=== PATIENT | female | born 1945 | race Caucasian/White ===

== ENCOUNTER → 2016-12-19 | Outpatient (CLI) | payer OTHER ==
[~2016-12-19] MED LIST: ACET500T57 PO; CARV3.12 PO; CENTTAB41 PO; IRON PO; LEVO1TAB PO; OXYC-292 PO; OXYC1TAB3 PO; XRL10 PO
--- NOTE | 2016-12-19 12:32 | MAMMOGRAPHY REPORT ---
BILATERAL DIGITAL SCREENING MAMMOGRAM WITH CAD: 12/19/2016 CLINICAL HISTORY: Routine screening. Patient has no complaints. TECHNIQUE: Current study was also evaluated with a Computer Aided Detection (CAD) system. Bilateral CC and MLO views were obtained. COMPARISON: Comparison is made to exams dated: 12/16/2015 mammogram, 12/14/2014 mammogram, 08/24/2013 ma mmogram, 05/06/2012 mammogram, 06/05/2011 mammogram, and 05/10/2010 mammogram - [facility]. BREAST COMPOSITION: There are scattered areas of fibroglandular density in both breasts. FINDINGS: No suspicious masses, calcifications, or areas of architectural distortion are noted in ei ther breast. There has been no significant interval change compared to prior exams. Scattered bilater al benign-appearing calcifications are not significantly changed. IMPRESSION: ACR BI-RADS CATEGORY 2: BENIGN There is no mammographic evidence of malignancy. A 1 year screening mammogram is recommended. The pa tient will receive written notification of the results. Approximately 10% of breast cancers are not detected with mammography. A negative mammographic report should not delay biopsy if a clinically suggestive mass is present. Megan Riggins M.D. /:12/19/2016 09:33:52 Loan Representative: Mariaa Clemons, [facility] letter sent: Normal 1/2 BI-RADS Code: ACR BI-RADS Category 2: Benign
== END | disposition home or self-care (01) ==
LOC: C.MAMM 09:11
PROVIDERS: ATTEND Student in an Organized Health Care Education/Training Program
DX: Z12.31 Encounter for screening mammogram for malignant neoplasm of breast (principal)

== ENCOUNTER 2017-05-01 12:39 | Inpatient (IN) | payer OTHER ==
[~2017-05-01] VITALS: Ht 160 cm; Wt 79.4 kg
[2017-05-01 12:45] VITALS: Ht 160 cm; Wt 79.4 kg
[2017-05-01] MEDS ORDERED: FLUCONAZOLE 50 MG TAB PO ONE (13:15)
[2017-05-01] MEDS ORDERED: LEVO100T PO (13:28)
[2017-05-01] MEDS ORDERED: KRIL1CAP14 PO (13:28)
[2017-05-01] MEDS ORDERED: FERR1TAB23 PO (13:28)
[2017-05-01] MEDS ORDERED: CARV12.52 PO (13:28)
[2017-05-01] MEDS ORDERED: VNTHFA/IN INH (13:28)
[2017-05-01] MEDS ORDERED: MULTCHW PO (13:28)
[2017-05-01] MEDS ORDERED: COEN1CAP28 PO (13:28)
[2017-05-01] MEDS ORDERED: FLUT0.15 NAE (13:28)
[2017-05-01] MEDS ORDERED: ATOR10TA82 PO (13:28)
[2017-05-01] MEDS ORDERED: CYAN500T PO (13:28)
[2017-05-01] MEDS ORDERED: SACC250C PO (13:28)
[2017-05-01] MEDS ORDERED: CLOT10TR2 MT (13:28)
--- NOTE | 2017-05-01 13:56 | EMERGENCY ROOM VISIT NOTE ---
History Report prepared by Sandi: Adolfo Duval Under the Supervision of: Dr. Greald Juarez M.D. First contact with patient: 13:03 Chief Complaint: ILLNESS Stated Complaint: BLOOD PRESSURE, YEAST History of Present Illness The patient is a 72 year old female who presents to the Emergency Room with complaints of persistent generalized illness beginning a few weeks ago. She states that she had some "intestinal problems" recently including diarrhea which she attributes to eating a treated hoagie. She states that she was found to have thrush last week as well. The patient notes that her blood pressure was abnormally high today. She also believes she may have a vaginal yeast infection. She states that she may have some mild discomfort with urination. The patient states that she has been hydrating well recently. Her diarrhea resolved this week. She is currently on medication for her thrush. She was previously on Ciprofloxacin for her GI symptoms--she believes the antibiotic caused the thrush. The patient denies SOB, cough, or chest pain. Source of History: patient Onset: A few weeks ago Position: other (generalized) Quality: other (illness) Timing: other (persistent) Associated Symptoms: + diarrhea (resolved), + urinary symptoms (mild discomfort with urination), No cough, No chest pain, No SOB Review of Systems See HPI for pertinent positives & negatives. A total of 10 systems reviewed and were otherwise negative. Past Medical & Surgical Medical Problems: (1) HLD (hyperlipidemia) (2) HTN (hypertension) (3) Hypothyroidism (4) Osteoarthritis Surgical Problems: (1) History of tonsillectomy (2) S/P partial hysterectomy (3) Status post total knee replacement, left (4) Status post total knee replacement, right Family History No pertinent family history stated. Social History Smoking Status: Never Smoker Drug Use: none Current/Historical Medications Scheduled Aspirin (Aspirin EC Low Dose), 81 MG PO DAILY Atorvastatin (Lipitor), 10 MG PO 3XWK Carvedilol (Coreg), 12.5 MG PO BID Clotrimazole (Mycelex), 10 MG MT 5XD Coenzyme Q10 (Ubidecarenone) (Co Q10), 100 MG PO DAILY Cyanocobalamin (Vitamin B-12), 1,000 MCG PO DAILY Ferrous Sulfate (Iron), 325 MG PO DAILY Fluticasone Propionate (Nasal) (Flonase Allergy Relief), 2 SPRAY [place]TON DAILY Krill Oil (Maximum Red Krill 300 mg), 300 MG PO DAILY Levothyroxine Sodium (Synthroid), 100 MCG PO DAILY Multiple Vitamins W/ Minerals (Centrum Silver), 1 TAB PO DAILY Scheduled PRN Albuterol Hfa (Ventolin Hfa), 2 PUFFS INH QID PRN for SOB/Wheezing Allergies Coded Allergies: Penicillins (Verified Allergy, Intermediate, HIVES, 05/01/17) Corticosteroids (Verified Allergy, Mild, `, 05/01/17) Naproxen (Verified Allergy, Unknown, UNKNOWN, 05/01/17) Physical Exam Vital Signs Date Time Temp Pulse Resp B/P (MAP) Pulse Ox O2 Delivery O2 Flow Rate FiO2 05/01/17 17:10 74 14 98 05/01/17 17:05 80 23 98 05/01/17 17:03 198/86 05/01/17 17:02 215/89 05/01/17 16:30 198/99 05/01/17 16:17 78 18 98 05/01/17 16:12 180/92 05/01/17 16:00 192/103 05/01/17 15:58 76 18 97 05/01/17 15:47 217/88 05/01/17 15:46 213/125 05/01/17 15:45 217/122 05/01/17 15:30 197/124 05/01/17 15:28 62 15 96 05/01/17 15:23 68 16 194/105 97 05/01/17 15:16 203/113 05/01/17 15:00 202/137 05/01/17 14:53 66 18 96 05/01/17 14:48 210/114 05/01/17 14:35 74 16 97 05/01/17 14:30 217/105 05/01/17 14:12 204/113 05/01/17 14:09 68 16 96 05/01/17 14:00 213/107 05/01/17 13:47 82 05/01/17 13:42 80 20 221/105 97 Room Air 05/01/17 13:42 221/105 05/01/17 12:45 36.6 72 20 219/99 97 Room Air Physical Exam GENERAL: Patient is in no acute distress. HEENT: No acute trauma, normocephalic atraumatic, mucous membranes moist, no nasal congestion, no scleral icterus. No thrush patches noted in mouth. No throat erythema. NECK: No stridor, no adenopathy, no meningismus, trachea is midline. LUNGS: Clear to auscultation bilaterally, no wheeze, no rhonchi, breath sounds equal. HEART: Without murmurs gallops or rubs, regular rate and rhythm. ABDOMEN: Soft, nontender, bowel sounds positive, no hernias, no peritonitis. EXTREMITIES: No cyanosis or edema, full range of motion of all the joints without pain or difficulty, no signs for acute trauma. NEUROLOGIC: Oriented x 3, no acute motor or sensory deficits, no focal weakness. SKIN: No rash, no jaundice, no diaphoresis. Medical Decision & Procedures Laboratory Results 05/01/17 13:37 Red Blood Count 4.10, Mean Corpuscular Volume 88.5, Mean Corpuscular Hemoglobin 30.7, Mean Corpuscular Hemoglobin Concent 34.7, Mean Platelet Volume 8.3, Neutrophils (%) (Auto) 62.4, Lymphocytes (%) (Auto) 25.8, Monocytes (%) (Auto) 9.5, Eosinophils (%) (Auto) 1.4, Basophils (%) (Auto) 0.3, Neutrophils # (Auto) 4.42, Lymphocytes # (Auto) 1.83, Monocytes # (Auto) 0.67, Eosinophils # (Auto) 0.10, Basophils # (Auto) 0.02 05/01/17 13:37 Test 05/01/17 13:37 05/01/17 13:45 White Blood Count 7.08 K/uL (4.8-10.8) Red Blood Count 4.10 M/uL (4.2-5.4) Hemoglobin 12.6 g/dL (12.0-16.0) Hematocrit 36.3 % (37-47) Mean Corpuscular Volume 88.5 fL (80-100) Mean Corpuscular Hemoglobin 30.7 pg (25-34) Mean Corpuscular Hemoglobin Concent 34.7 g/dl (32-36) Platelet Count 339 K/uL (130-400) Mean Platelet Volume 8.3 fL (7.4-10.4) Neutrophils (%) (Auto) 62.4 % Lymphocytes (%) (Auto) 25.8 % Monocytes (%) (Auto) 9.5 % Eosinophils (%) (Auto) 1.4 % Basophils (%) (Auto) 0.3 % Neutrophils # (Auto) 4.42 K/uL (1.4-6.5) Lymphocytes # (Auto) 1.83 K/uL (1.2-3.4) Monocytes # (Auto) 0.67 K/uL (0.11-0.59) Eosinophils # (Auto) 0.10 K/uL (0-0.5) Basophils # (Auto) 0.02 K/uL (0-0.2) RDW Standard Deviation 41.7 fL (36.4-46.3) RDW Coefficient of Variation 13.0 % (11.5-14.5) Immature Granulocyte % (Auto) 0.6 % Immature Granulocyte # (Auto) 0.04 K/uL (0.00-0.02) Anion Gap 9.0 mmol/L (3-11) Est Creatinine Clear Calc Drug Dose 74.7 ml/min Estimated GFR () 101.0 Estimated GFR (Non- 87.2 BUN/Creatinine Ratio 10.9 (10-20) Calcium Level 9.1 mg/dl (8.5-10.1) Magnesium Level 1.8 mg/dl (1.8-2.4) Total Bilirubin 0.4 mg/dl (0.2-1) Aspartate Amino Transf (AST/SGOT) 24 U/L (15-37) Alanine Aminotransferase (ALT/SGPT) 34 U/L (12-78) Alkaline Phosphatase 88 U/L (45-117) Total Protein 7.8 gm/dl (6.4-8.2) Albumin 4.0 gm/dl (3.4-5.0) Globulin 3.8 gm/dl (2.5-4.0) Albumin/Globulin Ratio 1.1 (0.9-2) Thyroid Stimulating Hormone (TSH) 0.452 uIu/ml (0.300-4.500) Urine Color YELLOW Urine Appearance CLEAR (CLEAR) Urine pH 7.5 (4.5-7.5) Urine Specific [place] 1.010 (1.000-1.030) Urine Protein NEG (NEG) Urine Glucose (UA) NEG (NEG) Urine Ketones NEG (NEG) Urine Occult Blood NEG (NEG) Urine Nitrite NEG (NEG) Urine Bilirubin NEG (NEG) Urine Urobilinogen NEG (NEG) Urine Leukocyte Esterase NEG (NEG) Laboratory results reviewed by me. Medications Administered Medications (Trade) Dose Ordered Sig/Tejas Route Start Time Stop Time Status Last Admin Dose Admin Fluconazole (Diflucan Tab) 150 mg NOW ONCE PO 05/01/17 13:15 05/01/17 13:16 DC 05/01/17 13:38 150 MG Labetalol HCl (Normodyne IV) 20 mg NOW STAT IV 05/01/17 14:35 05/01/17 14:40 DC 05/01/17 14:46 20 MG Hydralazine HCl (HydrALAZINE INJ) 10 mg NOW STAT IV 05/01/17 15:24 05/01/17 15:25 DC 05/01/17 15:42 10 MG Amlodipine Besylate (Norvasc Tab) 5 mg NOW ONCE PO 05/01/17 16:30 05/01/17 16:31 DC 05/01/17 16:24 5 MG ECG Indication: other (hypertension) Rate (beats per minute): 73 Rhythm: normal sinus Findings: no acute ischemic change, no ectopy ED Course 1305: The patient was evaluated in room C2B. A complete history and physical exam was performed. 1315: Ordered Diflucan Tab 150 mg PO. 1435: Ordered Normodyne 20 mg IV. 1524: Ordered Hydralazine Inj 10 mg IV. 1630: Ordered Norvasc Tab 5 mg PO. 1635: Upon reexamination the patient is resting comfortably. I discussed results and treatment plan with the patient. She verbalizes agreement and understanding. The patient will be evaluated for further management. Medical Decision The patient is a 72 year old female who presents to the ED with complaints of persistent generalized illness. Differential diagnoses considered include situational hypertension, electrolyte imbalance, cardiac ischemia, anemia, UTI, vaginal yeast infection and thrush. There is no leukocytosis or concerning anemia. Sodium slightly low but this is baseline looking back at previous testing. No kidney failure or hepatitis. EKG shows a normal sinus rhythm, no acute ischemia. Cardiac enzyme testing times one is not consistent with acute cardiac injury. The patient appears to be in a euthyroid state. There is no coagulopathy. Urinalysis does not show evidence for infection. Blood pressure was quite high here in the ED. The patient received oral Diflucan for her complaints of a vaginal yeast infection. She was given IV labetalol and IV hydralazine. She was given oral Norvasc. With the above medications, her blood pressure improved slightly but not significantly. Given the resistance to medications, given the high pressure, I did consult cardiology. They recommended a hospital stay for better blood pressure control. I spoke to the patient and case management. The on-call hospitalist was consulted. The reason for the high blood pressure today is currently unclear. Medication Reconcilliation Current Medication List: was personally reviewed by me Blood Pressure Screening Patient's blood pressure: Elevated blood pressure Blood pressure disposition: Referred to PCP Consults Time Called: 1610 Consulting Physician: Dr. Cox -Cardiology Returned Call: 1615 Discussed the patient's case. Dr. Cox recommends the patient be kept for further evaluation. Additional Consults: Time Called: 1635 Consulted Physician: Kasey Stevens Returned Call: 1640 Additional Comments: Discussed the patient's case. The patient will be evaluated for further management. Impression Primary Impression: Hypertensive urgency Scribe Attestation The scribe's documentation has been prepared under my direction and personally reviewed by me in its entirety. I confirm that the note above accurately reflects all work, treatment, procedures, and medical decision making performed by me. Departure Information Dispostion Being Evaluated By Hospitalist Referrals Tiffanie Dewey D.O. (PCP) Patient Instructions My [facility]
[2017-05-01 14:11] LABS: BASO % 0.3 %; BASO ABS # 0.02 K/uL (0-0.2); COMPLETE YES; EOS % 1.4 %; HEMATOCRIT 36.3 % (37-47); IG% 0.6 %; LYMPH % 25.8 %; LYMPH ABS # 1.83 K/uL (1.2-3.4); MEAN CELL VOLUME 88.5 fL (80-100); MEAN CORPUSCULAR HEMOGLOBIN 30.7 pg (25-34); MEAN CORPUSCULAR HGB CONC 34.7 g/dl (32-36); MEAN PLATELET VOLUME 8.3 fL (7.4-10.4); MONO % 9.5 %; NEUT % 62.4 %; PLATELET COUNT 339 K/uL (130-400); WHITE BLOOD COUNT 7.08 K/uL (4.8-10.8)
[2017-05-01 14:31] LABS: URINE APPEARANCE CLEAR (CLEAR); URINE BILIRUBIN NEG (NEG); URINE COLOR YELLOW; URINE NITRITE NEG (NEG); URINE PH 7.5 (4.5-7.5); UROBILINOGEN NEG (NEG); ZZUR CULT IF INDIC CLEAN CATCH NO
[2017-05-01 14:32] LABS: MANUAL MICROSCOPIC REQUIRED? NO; REVIEW REQ? NO
[2017-05-01 14:32] LABS: ALT/SGPT 34 U/L (12-78); AST/SGOT 24 U/L (15-37); BLOOD UREA NITROGEN 8 mg/dl (7-18); BUN/CREATININE RATIO 10.9 (10-20); CALCIUM 9.1 mg/dl (8.5-10.1); CARBON DIOXIDE 28 mmol/L (21-32); CHLORIDE 92 mmol/L (98-107); GLUCOSE 99 mg/dl (70-99); MAGNESIUM 1.8 mg/dl (1.8-2.4); SODIUM 129 mmol/L (136-145)
[2017-05-01] MEDS ORDERED: LABETALOL HCL IV 5 MG/ML 20ML IV STA (14:35)
[2017-05-01 14:43] LABS: ALB/GLOB RATIO 1.1 (0.9-2); ALKALINE PHOSPHATASE 88 U/L (45-117); THYROID STIMULATING HORMONE 0.452 uIu/ml (0.300-4.500)
[2017-05-01] MEDS ORDERED: HydrALAZINE HCL 20 MG/ML VIAL IV STA (15:24)
[2017-05-01] MEDS ORDERED: AMLODIPINE BESYLATE 5 MG TAB PO ONE ×2 (16:30→23:27)
[2017-05-01] MEDS ORDERED: ASPEC81 PO (17:14)
[2017-05-01] MEDS ORDERED: NITROGLYCERIN 0.4 MG SL PER TAB CHARGE SL PRN (17:15)
[2017-05-01] MEDS ORDERED: ACETAMINOPHEN 325 MG TAB PO PRN (17:15)
[2017-05-01] MEDS ORDERED: ONDANSETRON INJ 2 MG/ML 2 ML VIAL IV PRN (17:15)
[2017-05-01 17:54] VITALS: O2SAT 98
[2017-05-01 18:15] VITALS: BP 207/96; PULSE 88; TEMP 37; O2SAT 98
--- NOTE | 2017-05-01 18:42 | History and Physical ---
History & Physical Date & Time of Service: May 01, 2017 ~ 16:45 Chief Complaint: High Blood Pressure Primary Care Physician: Tiffanie Dewey D.O. History of Present Illness 72 year old female who presents to the ED with elevated blood pressure. Recently patient has been under a large amount of stress with her being sick as well as herself with a GI illness. She completed a course of Cipro for suspected food poisoning. She then developed thrush and has been using Mycelex however she does not feel as though this is helping. Patient reports that she routinely takes her blood pressure 2-3 times/week. She last took her BP 2 days ago and it was at baseline for her (systolically 120s-130s). Today when she took it she reports it was 220 systolically. She denies any associated symptoms with it. No chest pain or shortness of breath. She denies headache, blurred vision, slurred speech, unilateral numbness, tingling, or weakness. She reports her GI symptoms are resolving. No abdominal pain, nausea, vomiting, or diarrhea. She does admit to significantly increasing her water intake with the GI illness. She denies lightheadedness, dizziness, diaphoresis, or syncopal events. No fever or chills. She denies urinary symptoms. In the ED, Patient's BP was found to be 221/105. She was given Labetalol 20mg IV and Hydralazine 10mg IV with mild improvement in BP. ED discussed the case with cardiology who recommended adding Norvasc 5mg PO which she received just prior to myself seeing her. Troponin is negative and EKG does not show any acute ST changes. Past Medical/Surgical History Medical Problems: (1) HLD (hyperlipidemia) Status: Chronic (2) HTN (hypertension) Status: Chronic (3) Hypothyroidism Status: Chronic (4) Osteoarthritis Status: Chronic Surgical Problems: (1) History of tonsillectomy Status: Chronic (2) S/P partial hysterectomy Status: Chronic (3) Status post total knee replacement, left Status: Chronic (4) Status post total knee replacement, right Status: Chronic Family History FH: CAD (coronary artery disease) FATHER FH: diabetes mellitus FATHER Social History Smoking Status: Never Smoker Alcohol Use: none Marital Status: Housing status: lives with family Immunizations History of Influenza Vaccine: Yes Influenza Vaccine Date: Apr 05, 2017 History of Tetanus Vaccine?: Yes Tetanus Immunization Date: Apr 22, 1996 Multi-Drug Resistant Organisms History of MDRO: No Allergies Coded Allergies: Penicillins (Verified Allergy, Intermediate, HIVES, 05/01/17) Corticosteroids (Verified Allergy, Mild, `, 05/01/17) Naproxen (Verified Allergy, Unknown, UNKNOWN, 05/01/17) Home Medications Scheduled Aspirin (Aspirin EC Low Dose), 81 MG PO DAILY Atorvastatin (Lipitor), 10 MG PO 3XWK Carvedilol (Coreg), 12.5 MG PO BID Clotrimazole (Mycelex), 10 MG MT 5XD Coenzyme Q10 (Ubidecarenone) (Co Q10), 100 MG PO DAILY Cyanocobalamin (Vitamin B-12), 1,000 MCG PO DAILY Ferrous Sulfate (Iron), 325 MG PO DAILY Fluticasone Propionate (Nasal) (Flonase Allergy Relief), 2 SPRAY [place] DAILY Krill Oil (Maximum Red Krill 300 mg), 300 MG PO DAILY Levothyroxine Sodium (Synthroid), 100 MCG PO DAILY Multiple Vitamins W/ Minerals (Centrum Silver), 1 TAB PO DAILY Scheduled PRN Albuterol Hfa (Ventolin Hfa), 2 PUFFS INH QID PRN for SOB/Wheezing Review of Systems ROS per HPI, all other systems reviewed and negative Physical Exam Vital Signs Date Time Temp Pulse Resp B/P (MAP) Pulse Ox O2 Delivery O2 Flow Rate FiO2 05/01/17 17:54 36.6 74 14 219/107 98 05/01/17 17:30 219/107 05/01/17 17:10 74 14 98 05/01/17 17:05 80 23 98 05/01/17 17:03 198/86 05/01/17 17:02 215/89 05/01/17 16:30 198/99 05/01/17 16:17 78 18 98 05/01/17 16:12 180/92 05/01/17 16:00 192/103 05/01/17 15:58 76 18 97 05/01/17 15:47 217/88 05/01/17 15:46 213/125 05/01/17 15:45 217/122 05/01/17 15:30 197/124 05/01/17 15:28 62 15 96 05/01/17 15:23 68 16 194/105 97 05/01/17 15:16 203/113 05/01/17 15:00 202/137 05/01/17 14:53 66 18 96 05/01/17 14:48 210/114 05/01/17 14:35 74 16 97 05/01/17 14:30 217/105 05/01/17 14:12 204/113 05/01/17 14:09 68 16 96 05/01/17 14:00 213/107 05/01/17 13:47 82 05/01/17 13:42 80 20 221/105 97 Room Air 05/01/17 13:42 221/105 05/01/17 12:45 36.6 72 20 219/99 97 Room Air General Appearance: WD/WN, no apparent distress Head: normocephalic, atraumatic Eyes: normal inspection, EOMI, sclerae normal ENT: hearing grossly normal, + pertinent finding (mucous membranes moist, thrush noted on tongue ) Neck: supple, no JVD, trachea midline Respiratory/Chest: lungs clear, normal breath sounds, no respiratory distress Cardiovascular: regular rate, rhythm, no edema, normal peripheral pulses Abdomen/GI: normal bowel sounds, non tender, soft, no organomegaly Extremities/Musculoskelatal: normal inspection, no calf tenderness, normal capillary refill Neurologic/Psych: no motor/sensory deficits, alert, normal mood/affect, oriented x 3 Skin: normal color, warm/dry Diagnostics Laboratory Results Results Past 24 Hours Test 05/01/17 13:37 05/01/17 13:45 05/01/17 17:16 05/01/17 17:18 Range/Units White Blood Count 7.08 4.8-10.8 K/uL Red Blood Count 4.10 4.2-5.4 M/uL Hemoglobin 12.6 12.0-16.0 g/dL Hematocrit 36.3 37-47 % Mean Corpuscular Volume 88.5 80-100 fL Mean Corpuscular Hemoglobin 30.7 25-34 pg Mean Corpuscular Hemoglobin Concent 34.7 32-36 g/dl Platelet Count 339 130-400 K/uL Mean Platelet Volume 8.3 7.4-10.4 fL Neutrophils (%) (Auto) 62.4 % Lymphocytes (%) (Auto) 25.8 % Monocytes (%) (Auto) 9.5 % Eosinophils (%) (Auto) 1.4 % Basophils (%) (Auto) 0.3 % Neutrophils # (Auto) 4.42 1.4-6.5 K/uL Lymphocytes # (Auto) 1.83 1.2-3.4 K/uL Monocytes # (Auto) 0.67 0.11-0.59 K/uL Eosinophils # (Auto) 0.10 0-0.5 K/uL Basophils # (Auto) 0.02 0-0.2 K/uL RDW Standard Deviation 41.7 36.4-46.3 fL RDW Coefficient of Variation 13.0 11.5-14.5 % Immature Granulocyte % (Auto) 0.6 % Immature Granulocyte # (Auto) 0.04 0.00-0.02 K/uL Sodium Level 129 136-145 mmol/L Potassium Level 4.0 3.5-5.1 mmol/L Chloride Level 92 98-107 mmol/L Carbon Dioxide Level 28 21-32 mmol/L Anion Gap 9.0 3-11 mmol/L Blood Urea Nitrogen 8 7-18 mg/dl Creatinine 0.70 0.60-1.20 mg/dl Est Creatinine Clear Calc Drug Dose 74.7 ml/min Estimated GFR () 101.0 Estimated GFR (Non- 87.2 BUN/Creatinine Ratio 10.9 10-20 Random Glucose 99 70-99 mg/dl Calcium Level 9.1 8.5-10.1 mg/dl Magnesium Level 1.8 1.8-2.4 mg/dl Total Bilirubin 0.4 0.2-1 mg/dl Aspartate Amino Transf (AST/SGOT) 24 15-37 U/L Alanine Aminotransferase (ALT/SGPT) 34 12-78 U/L Alkaline Phosphatase 88 45-117 U/L Troponin I < 0.015 0-0.045 ng/ml Total Protein 7.8 6.4-8.2 gm/dl Albumin 4.0 3.4-5.0 gm/dl Globulin 3.8 2.5-4.0 gm/dl Albumin/Globulin Ratio 1.1 0.9-2 Thyroid Stimulating Hormone (TSH) 0.452 0.300-4.500 uIu/ml Urine Color YELLOW Urine Appearance CLEAR CLEAR Urine pH 7.5 4.5-7.5 Urine Specific [place] 1.010 1.000-1.030 Urine Protein NEG NEG Urine Glucose (UA) NEG NEG Urine Ketones NEG NEG Urine Occult Blood NEG NEG Urine Nitrite NEG NEG Urine Bilirubin NEG NEG Urine Urobilinogen NEG NEG Urine Leukocyte Esterase NEG NEG Impression Assessment and Plan HYPERTENSIVE URGENCY - admit to tele - patient presenting to the ED after she incidentally found her BP to be elevated systolically in the 220s at home; in the ED, BP found to be 221/105, patient asymptomatic - s/p Labetalol 20mg IV and Hydralazine 10mg IV with mild improvement in BP; ED discussed case with Dr. Cox who recommended Norvasc 5mg PO which patient received shortly before my exam - patient on carvedilol 12.5mg BID at home; will give evening dose now and reassess BP. If BP continues to be elevated, will give an additional Norvasc 5mg tonight - PRN enalapril if BPs remain elevated - initial troponin negative, EKG without acute ST changes - continue to cycle cardiac enzymes, check resting echo HYPONATREMIA - mild, Na+ 129 - possibly due to patient's recent increase in free water intake - hx of hyponatremia in the past that improved with FR - will place patient on FR; also check serum and urine osmo, urine sodium HYPOTHYROIDISM - continue levothyroxine HLD - continue statin DVT PROPHYLAXIS - SQ Lovenox DISPO - In my clinical judgment this beneficiary meets acute admission criteria, established by [facility], that includes being hospitalized through two midnights. - expect d/c home once medically stable Attending physician Dr. Diego Addendum, I have seen and examined the patient with [employer]IL[employer] Kasey Livingston and agree with the assessment and plan and would like to comment that this is a 72 year old F patient with hypertensive urgency. Since initial blood pressure of 219/107 in the ED, patient's blood pressure trending down to 187/75 after medications of Hydralazine and Labetalol and Amlodipine and Carvedilol. If patient's blood pressure remains persistently elevated overnight there is still room for an additional 5 mg amlodipine and IV Vasotec. Other than elevated blood pressure, patient does not have symptoms of pain or shortness or breath. Mental status is at baseline. Mild hyponatremia of serum sodium 129. Serum sodium and osmolality labs needed to be monitored VTE Prophylaxis VTE Risk Assessment Done? Y/N: Yes Risk Level: Moderate
[2017-05-01 19:33] VITALS: BP 187/75; PULSE 77
[2017-05-01 19:33] LABS: INR 1.1 (0.9-1.1); PARTIAL THROMBOPLASTIN RATIO 1.2; PROTHROMBIN TIME (PATIENT) 11.4 SECONDS (9.0-12.0)
[2017-05-01] MEDS: ASPIRIN 81 MG ECTAB PO SCH (19:34)
[2017-05-01] MEDS: CARVEDILOL 12.5 MG TAB PO SCH (19:34)
[2017-05-01] MEDS: NYSTATIN SUSP 500,000 U/5 ML UDC PO SCH (19:35)
[2017-05-01] MEDS ORDERED: CARVEDILOL 12.5 MG TAB PO SCH (21:00)
[2017-05-01] MEDS ORDERED: PNEUMOCOCCAL POLYSACCHARIDES 25 MCG/0.5 ML VIAL/SYR IM. ONE (21:15)
[2017-05-01] MEDS ORDERED: PNEUMOCOCCAL ADMINISTRATION CHARGE ONE (21:15)
[2017-05-01 21:32] VITALS: BP 186/82
[2017-05-01] MEDS: ENOXAPARIN 40 MG/0.4 ML SYR SC SCH (21:35)
[2017-05-01 23:01] VITALS: BP 184/90; PULSE 72; TEMP 36.7; O2SAT 92
[2017-05-01] MEDS ORDERED: LORAZEPAM 2 MG/ML 1 ML VIAL IV PRN (23:30)
[2017-05-02 03:55] VITALS: BP 155/76; PULSE 65; TEMP 36.5; O2SAT 97
[2017-05-02] MEDS: LEVOTHYROXINE 100 MCG TAB PO SCH (05:50)
[2017-05-02 06:46] LABS: HEMATOCRIT 38.5 % (37-47); MEAN CELL VOLUME 87.1 fL (80-100); MEAN CORPUSCULAR HEMOGLOBIN 30.8 pg (25-34); MEAN CORPUSCULAR HGB CONC 35.3 g/dl (32-36); MEAN PLATELET VOLUME 8.1 fL (7.4-10.4); PLATELET COUNT 352 K/uL (130-400); RED BLOOD COUNT 4.42 M/uL (4.2-5.4); WHITE BLOOD COUNT 8.36 K/uL (4.8-10.8)
[2017-05-02 07:21] LABS: BUN/CREATININE RATIO 10.3 (10-20); CALCIUM 9.4 mg/dl (8.5-10.1); CREATININE 0.7 mg/dl (0.60-1.20); POTASSIUM 3.6 mmol/L (3.5-5.1)
[2017-05-02 07:27] VITALS: BP 144/81; PULSE 60; TEMP 36.5; O2SAT 98
[2017-05-02] MEDS: ASPIRIN 81 MG ECTAB PO SCH (08:10)
[2017-05-02] MEDS: FERROUS SULFATE 325 MG TAB PO SCH (08:10)
[2017-05-02] MEDS: CARVEDILOL 12.5 MG TAB PO SCH ×2 (08:10→19:39)
[2017-05-02] MEDS: CYANOCOBALAMIN 500 MCG TAB (VIT B-12) PO SCH (08:11)
[2017-05-02] MEDS: NYSTATIN SUSP 500,000 U/5 ML UDC PO SCH ×4 (08:11→19:39)
[2017-05-02] MEDS: CEROVITE ADV FORMULA TAB PO SCH (08:11)
[2017-05-02] MEDS ORDERED: FUROSEMIDE INJ 20 MG in SYRINGE 0 ML IV ONE (08:30)
[2017-05-02] MEDS ORDERED: POTASSIUM CHLORIDE 10 MEQ TABCR PO ONE (08:45)
[2017-05-02] MEDS ORDERED: KRILL OIL 300 MG PO SCH (09:00)
[2017-05-02] MEDS ORDERED: NON-FORMULARY MEDICATION (Coenzyme Q10 (Ubidecarenone) (Co Q10) 100 MG) PO SCH (09:00)
[2017-05-02] MEDS ORDERED: AMLODIPINE BESYLATE 5 MG TAB PO SCH (09:00)
[2017-05-02] MEDS ORDERED: AMLODIPINE BESYLATE 5 MG TAB PO ONE ×2 (09:45→10:00)
--- NOTE | 2017-05-02 10:41 | ECHOCARDIOGRAM REPORT ---
*NOTICE TO RECEIVING [employer] This information is strictly Confidential and protected under [place] law. [place] law prohibits you from making any further disclosure of this information unless further disclosure is expressly permitted by the written consent of the person to whom it pertains or is authorized by law. A general authorization for the release of medical or other information is not sufficient for this purpose. Hospital accepts no responsibility if the information is made available to any other person, INCLUDING THE PATIENT. Interpretation Summary * Name: DALLIN HUERTAS Study Date: 05/02/2017 08:30 AM BP: 155/76 mmHg * Patient Location: [facility] HR: 66 * : 1945 (M/d/yyyy) Gender: Female Height: 63 in * Age: 72 yrs Ethnicity: [place] Weight: 180 lb * Ordering Physician: Kasey Livingston * Referring Physician: Self, Referred * Performed By: Zain Boudreaux RCS * * Reason For Study: Hypertensive Urgency * BSA: 1.8 m2 * -- Conclusions -- * No significant change compared to previous study of 02/25/17. * Normal LV chamber size and wall thickness. * Normal LV systolic function, EF 55-60% * No segmental left ventricular wall motion abnormalities are noted. * Grade I diastolic dysfunction. * Aortic valve sclerosis moderate, without significant aortic valvular stenosis. * Mild mitral regurgitation. * Mild tricuspid regurgitation. Procedure Details * A complete two-dimensional transthoracic echocardiogram was performed (2D, M-mode, Doppler and color flow Doppler). Left Ventricle * The left ventricle is normal in size. * There is normal left ventricular wall thickness. * Ejection Fraction = 55-60%. * Left ventricular systolic function is normal. * No segmental left ventricular wall motion abnormalities are noted. * The left ventricular wall motion is normal. Right Ventricle * The right ventricular cavity size is normal (basal dimension <4.2 cm in right ventricular apical 4-chamber view). * The right ventricular systolic function is normal as assessed by tricuspid annular plane systolic excursion (TAPSE) (normal >1.5 cm). Atria * The left atrial size is normal. * Right atrial size is normal. * No ASD detected; PFO is not assessed. Mitral Valve * The mitral valve anatomy is normal. * There is no mitral valve stenosis. * There is mild mitral regurgitation. Tricuspid Valve * The tricuspid valve anatomy is normal. * There is no tricuspid stenosis. * There is mild tricuspid regurgitation. Aortic Valve * The aortic valve is trileaflet. * Aortic valve sclerosis moderate, without significant aortic valvular stenosis. * There is no significant aortic regurgitation. Pulmonic Valve * The pulmonary valve is not well seen, but the Doppler examination is normal without significant regurgitation or stenosis. Great Vessels * The aortic root and proximal ascending aorta are normal sized. Pericardium/Pleural * There is no pericardial effusion. Left Ventricular Diastolic Function * Grade I diastolic dysfunction, (abnormal relaxation pattern). MMode 2D Measurements and Calculations IVSd 0.93 cm IVSs 1.2 cm LVIDd 4.7 cm LVIDs 2.9 cm LVPWd 0.95 cm LVPWs 1.3 cm IVS/LVPW 0.98 FS 39.2 % EDV(Teich) 103.9 ml ESV(Teich) 31.5 ml EF(Teich) 69.7 % EDV(cubed) 105.8 ml ESV(cubed) 23.7 ml EF(cubed) 77.6 % % IVS thick 32.2 % % LVPW thick 32.1 % LV mass(C)d 153.4 grams LV mass(C)dI 82.9 grams/m\S\2 LV mass(C)s 109.3 grams LV mass(C)sI 59.1 grams/m\S\2 SV(Teich) 72.4 ml SI(Teich) 39.1 ml/m\S\2 SV(cubed) 82.1 ml SI(cubed) 44.4 ml/m\S\2 Ao root diam 3.0 cm Ao root area 7.0 cm\S\2 ACS 1.5 cm LA dimension 3.4 cm asc Aorta Diam 2.5 cm LA/Ao 1.2 EDV(MOD-sp4) 103.0 ml ESV(MOD-sp4) 43.0 ml EF(MOD-sp4) 58.3 % EDV(MOD-sp2) 99.0 ml ESV(MOD-sp2) 47.0 ml EF(MOD-sp2) 52.5 % SV(MOD-sp4) 60.0 ml SI(MOD-sp4) 32.4 ml/m\S\2 SV(MOD-sp2) 52.0 ml SI(MOD-sp2) 28.1 ml/m\S\2 Doppler Measurements and Calculations MV E max satish 101.1 cm/sec MV A max satish 105.4 cm/sec MV E/A 0.96 MV P1/2t max satish 109.5 cm/sec MV P1/2t 89.4 msec MVA(P1/2t) 2.5 cm\S\2 MV dec slope 358.5 cm/sec\S\2 MV dec time 0.22 sec Ao V2 max 132.0 cm/sec Ao max PG 7.0 mmHg Ao max PG (full) 3.0 mmHg AI max satish 399.9 cm/sec AI max PG 64.0 mmHg AI dec slope 173.8 cm/sec\S\2 AI P1/2t 674.0 msec LV V1 max PG 4.0 mmHg LV V1 max 99.6 cm/sec PA V2 max 83.9 cm/sec PA max PG 2.8 mmHg TR max satish 277.7 cm/sec
--- NOTE | 2017-05-02 10:59 | Progress Note ---
Subjective Date of Service: May 02, 2017. Subjective Pt evaluation today including: conversation w/ patient, physical exam, lab review, review of studies, review of inpatient medication list Saw/examined the patient in room 216 no problems to note today; denies weakness, denies nausea/vomiting/diarrhea Ambulating the halls; good PO intake. Review of Systems Constitutional: No fever, No chills Respiratory: No cough, No sputum, No shortness of breath Cardiac: No chest pain, No edema, No palpitations Abdomen: No pain, No nausea, No vomiting, No diarrhea Medications Current Inpatient Medications Medications (Trade) Dose Ordered Sig/Tejas Route Start Time Stop Time Status Last Admin Dose Admin Enoxaparin Sodium (Lovenox Inj) 40 mg QPM SC 05/01/17 21:00 05/31/17 20:59 05/01/17 21:35 40 MG Acetaminophen (Tylenol Tab) 650 mg Q4H PRN PO 05/01/17 17:15 05/31/17 17:14 Ondansetron HCl (Zofran Inj) 4 mg Q6H PRN IV 05/01/17 17:15 05/31/17 17:14 Nitroglycerin (Nitrostat Tab) 0.4 mg UD PRN SL 05/01/17 17:15 05/31/17 17:14 Aspirin (Ecotrin Tab) 81 mg DAILY PO 05/01/17 20:00 05/31/17 19:59 05/02/17 08:10 81 MG Atorvastatin Calcium (Lipitor Tab) 10 mg TuThSa@2100 PO 05/02/17 21:00 06/01/17 20:59 Cyanocobalamin (Vitamin B-12 Tab) 1,000 mcg DAILY PO 05/02/17 09:00 06/01/17 08:59 05/02/17 08:11 1,000 MCG Levothyroxine Sodium (Synthroid Tab) 100 mcg DAILYBB PO 05/02/17 06:00 06/01/17 06:59 05/02/17 05:50 100 MCG Ferrous Sulfate (Feosol Tab) 325 mg DAILY PO 05/02/17 09:00 06/01/17 08:59 05/02/17 08:10 325 MG Multivitamins/ Minerals (Multivitamin W/ Minerals Tab) 1 tab DAILY PO 05/02/17 09:00 06/01/17 08:59 05/02/17 08:11 1 TAB Nystatin (Mycostatin Susp) 5 ml QID PO 05/01/17 21:00 05/31/17 20:59 05/02/17 08:11 5 ML Carvedilol (Coreg Tab) 12.5 mg BID PO 05/01/17 18:40 05/31/17 18:39 05/02/17 08:10 12.5 MG Lorazepam (Ativan Inj) 0.5 mg Q4H PRN IV 05/01/17 23:30 05/31/17 23:29 Amlodipine Besylate (Norvasc Tab) 5 mg QAM PO 05/03/17 09:00 06/02/17 08:59 Objective Vital Signs Date Time Temp Pulse Resp B/P (MAP) Pulse Ox O2 Delivery O2 Flow Rate FiO2 05/02/17 07:27 36.5 60 18 144/81 (102) 98 Room Air 05/02/17 04:00 Room Air 05/02/17 03:55 36.5 65 16 155/76 (102) 97 Room Air 05/02/17 00:00 Room Air 05/01/17 23:01 36.7 72 17 184/90 (121) 92 Room Air 05/01/17 21:32 186/82 (116) 05/01/17 20:06 Room Air 05/01/17 19:33 77 187/75 (112) 05/01/17 18:15 37.0 88 14 207/96 (133) 98 Room Air 05/01/17 17:54 36.6 74 14 219/107 98 05/01/17 17:30 219/107 05/01/17 17:10 74 14 98 05/01/17 17:05 80 23 98 05/01/17 17:03 198/86 05/01/17 17:02 215/89 05/01/17 16:30 198/99 05/01/17 16:17 78 18 98 05/01/17 16:12 180/92 05/01/17 16:00 192/103 05/01/17 15:58 76 18 97 05/01/17 15:47 217/88 05/01/17 15:46 213/125 05/01/17 15:45 217/122 05/01/17 15:30 197/124 05/01/17 15:28 62 15 96 05/01/17 15:23 68 16 194/105 97 05/01/17 15:16 203/113 05/01/17 15:00 202/137 05/01/17 14:53 66 18 96 05/01/17 14:48 210/114 05/01/17 14:35 74 16 97 05/01/17 14:30 217/105 05/01/17 14:12 204/113 05/01/17 14:09 68 16 96 05/01/17 14:00 213/107 05/01/17 13:47 82 05/01/17 13:42 80 20 221/105 97 Room Air 05/01/17 13:42 221/105 05/01/17 12:45 36.6 72 20 219/99 97 Room Air Physical Exam General Appearance: no apparent distress Respiratory/Chest: lungs clear, normal breath sounds, no respiratory distress, no accessory muscle use Cardiovascular: regular rate, rhythm, no edema, no murmur Abdomen: normal bowel sounds, non tender, soft Extremities: normal range of motion, non-tender, normal inspection, no pedal edema, no calf tenderness Neurologic/Psychiatric: no motor/sensory deficits, alert, normal mood/affect Laboratory Results Last 24 Hours Test 05/01/17 13:37 05/01/17 13:45 05/01/17 19:04 05/01/17 19:15 White Blood Count 7.08 K/uL Red Blood Count 4.10 M/uL Hemoglobin 12.6 g/dL Hematocrit 36.3 % Mean Corpuscular Volume 88.5 fL Mean Corpuscular Hemoglobin 30.7 pg Mean Corpuscular Hemoglobin Concent 34.7 g/dl Platelet Count 339 K/uL Mean Platelet Volume 8.3 fL Neutrophils (%) (Auto) 62.4 % Lymphocytes (%) (Auto) 25.8 % Monocytes (%) (Auto) 9.5 % Eosinophils (%) (Auto) 1.4 % Basophils (%) (Auto) 0.3 % Neutrophils # (Auto) 4.42 K/uL Lymphocytes # (Auto) 1.83 K/uL Monocytes # (Auto) 0.67 K/uL Eosinophils # (Auto) 0.10 K/uL Basophils # (Auto) 0.02 K/uL RDW Standard Deviation 41.7 fL RDW Coefficient of Variation 13.0 % Immature Granulocyte % (Auto) 0.6 % Immature Granulocyte # (Auto) 0.04 K/uL Sodium Level 129 mmol/L Potassium Level 4.0 mmol/L Chloride Level 92 mmol/L Carbon Dioxide Level 28 mmol/L Anion Gap 9.0 mmol/L Blood Urea Nitrogen 8 mg/dl Creatinine 0.70 mg/dl Est Creatinine Clear Calc Drug Dose 74.7 ml/min Estimated GFR () 101.0 Estimated GFR (Non- 87.2 BUN/Creatinine Ratio 10.9 Random Glucose 99 mg/dl Calcium Level 9.1 mg/dl Magnesium Level 1.8 mg/dl Total Bilirubin 0.4 mg/dl Aspartate Amino Transf (AST/SGOT) 24 U/L Alanine Aminotransferase (ALT/SGPT) 34 U/L Alkaline Phosphatase 88 U/L Troponin I < 0.015 ng/ml < 0.015 ng/ml Total Protein 7.8 gm/dl Albumin 4.0 gm/dl Globulin 3.8 gm/dl Albumin/Globulin Ratio 1.1 Thyroid Stimulating Hormone (TSH) 0.452 uIu/ml Urine Color YELLOW Urine Appearance CLEAR Urine pH 7.5 Urine Specific [place] 1.010 Urine Protein NEG Urine Glucose (UA) NEG Urine Ketones NEG Urine Occult Blood NEG Urine Nitrite NEG Urine Bilirubin NEG Urine Urobilinogen NEG Urine Leukocyte Esterase NEG Prothrombin Time 11.4 SECONDS Prothromb Time International Ratio 1.1 Activated Partial Thromboplast Time 31.2 SECONDS Partial Thromboplastin Ratio 1.2 Osmolality 267 mOsm/kg Creatine Kinase MB 6.1 ng/ml Creatine Kinase MB Ratio Urine Osmolality 256 mOms/kg Urine Random Sodium 99 mEq/L Test 05/02/17 00:55 05/02/17 02:35 05/02/17 06:24 Creatine Kinase MB Ratio Creatine Kinase MB 4.3 ng/ml Troponin I < 0.015 ng/ml White Blood Count 8.36 K/uL Red Blood Count 4.42 M/uL Hemoglobin 13.6 g/dL Hematocrit 38.5 % Mean Corpuscular Volume 87.1 fL Mean Corpuscular Hemoglobin 30.8 pg Mean Corpuscular Hemoglobin Concent 35.3 g/dl RDW Standard Deviation 41.4 fL RDW Coefficient of Variation 12.8 % Platelet Count 352 K/uL Mean Platelet Volume 8.1 fL Sodium Level 126 mmol/L Potassium Level 3.6 mmol/L Chloride Level 89 mmol/L Carbon Dioxide Level 29 mmol/L Anion Gap 8.0 mmol/L Blood Urea Nitrogen 7 mg/dl Creatinine 0.70 mg/dl Est Creatinine Clear Calc Drug Dose 73.1 ml/min Estimated GFR () 101.0 Estimated GFR (Non- 87.2 BUN/Creatinine Ratio 10.3 Random Glucose 106 mg/dl Calcium Level 9.4 mg/dl Assessment and Plan This is a 72 year old female with a PMH of HTN, HLD, hypothyroidism and recent GI illness presented secondary to hypertensive urgency Hypertensive Urgency patient takes Coreg at home due to high blood pressure she checks her blood pressure 2-3x/week - states that it was fine on Saturday () and a few days later was elevated to SBP >200 presented to the ED and confirmed blood pressure >200/100 was given Labetalol and Hydralazine in the ED started on Amlodipine and Coreg with some improved blood pressures will monitor in tele - no sign of end organ damage Hyponatremia, likely SIADH patient presents with hyponatremia -- going through her records, patient seems to have hyponatremia at baseline Na went from 129 --> 126 will avoid thiazides serum and urine osm are both low, suggesting fluid overload restrict fluid intake to 1800mL/day; will give one dose of Lasix and recheck sodium later today will send out ADH Hypothyroidism TSH wnl continue Synthroid HLD continue her home dose of statin DVT ppx Lovenox FULL CODE
--- NOTE | 2017-05-02 11:07 | CARDIOLOGY CONSULTATION ---
DATE OF CONSULTATION: 05/02/2017 CONSULTATION REQUESTED BY: Gerald Juarez MD REASON FOR CONSULTATION: Uncontrolled hypertension. HISTORY OF PRESENT ILLNESS: Mrs. Chandler is a very pleasant 72-year-old woman who normally follows with Dr. Page of our cardiology practice for history of hypertension. She presented to [facility] on 05/01/2017 with a report of uncontrolled hypertension. The patient states that she has not been feeling well lately and been having ongoing issues with food poisoning, GI upset and antibiotics would have caused yeast infection and oral thrush. She has been feeling well otherwise despite these issues; however, yesterday she routinely took her blood pressure and it was found to be 220/110. She was not having any specific symptoms at that time and denied experiencing any chest pain, shortness of breath, palpitations, lightheadedness, dizziness, headache or syncope. She just decided to take it. When she saw it was that high, she came into the Emergency Room for further evaluation. In the Emergency Room, her blood pressure was confirmed to be 219/99. She was given IV hydralazine and IV labetalol without any significant improvement of her blood pressure. I was then contacted by Dr. Juarez and recommended given her lack of symptoms that she should be started on amlodipine orally and it was increased to a total of 10 mg yesterday and her blood pressure has improved overnight. Currently, she is without complaint at rest and denies any chest pain, shortness of breath, palpitations, lightheadedness, dizziness, or syncope. PAST SURGICAL HISTORY: 1. Bilateral knee surgeries. 2. Partial hysterectomy. 3. Followup total abdominal hysterectomy. 4. Tonsillectomy. MEDICAL ILLNESSES: 1. Hypertension. 2. Hypothyroidism. 3. Hyperlipidemia. 4. 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 FAMILY HISTORY: Noncontributory. SOCIAL HISTORY: She denies any alcohol, tobacco or recreational drug use. She lives at home with her who is currently undergoing a significant medical treatment including TAVR. REVIEW OF SYSTEMS: As per HPI, all other review of systems reviewed and negative at this time. ALLERGIES: 1. PENICILLIN. 2. CLINDAMYCIN. 3. CORTICOSTEROIDS. 4. NAPROXEN. MEDICATIONS AN OUTPATIENT: 1. Atorvastatin 10 mg 3 times a week. 2. Coreg 12.5 mg b.i.d. 3. Coenzyme Q10 daily. 4. Levothyroxine daily. 5. Fluconazole. 6. Nystatin. PHYSICAL EXAMINATION: VITAL SIGNS: Temperature 36.5, pulse 60, respiratory rate 12, blood pressure 144/81. GENERAL: Awake, alert, oriented x3 in no acute distress. HEENT: Normocephalic, atraumatic. Pupils equal, round, and reactive to light and accommodation. Extraocular muscles intact. Anicteric sclerae. Moist mucous membranes. NECK: No JVD, no bruit. CARDIOVASCULAR: Regular. Positive S4. Normal S1 and S2. No S3. No murmurs or rubs. PULMONARY: Clear to auscultation bilaterally. No rales, rhonchi, or wheezing. ABDOMEN: Bowel sounds x4, soft. No rebound, guarding, or tenderness. No organomegaly. EXTREMITIES: No clubbing, cyanosis or edema; +2 pedal pulses bilaterally. SKIN: Warm and dry. TEST RESULTS: An outpatient echocardiogram on 02/25/2017 was read as normal LV chamber size with mild concentric LVH, normal LV systolic function, EF 55%-59%, normal wall motion, grade 1 diastolic dysfunction, moderate aortic valve sclerosis without stenosis, mild mitral regurgitation, mild tricuspid regurgitation. A 12-lead EKG performed in the Emergency Department independently reviewed at this time shows normal sinus rhythm at 73 beats per minute, left axis deviation, normal intervals, poor R-wave progression across the precordium, no signs of active ischemia, no significant change compared to previous studies. LABORATORY STUDIES OF SIGNIFICANCE: Sodium 126, potassium 3.6, BUN 7, creatinine 0.7, troponin negative x3. IMPRESSION: 1. Uncontrolled hypertension, episodic. 2. Hyponatremia. 3. Recent gastrointestinal upset with increasing water intake. RECOMMENDATIONS: It was my pleasure to see Mrs. Chandler in consultation today. From a cardiac standpoint, it is reassuring to see that her blood pressure has now improved with the addition of the medications and that we have not bottomed out her blood pressure. So, from a cardiac standpoint, she received a total of 10 mg of amlodipine yesterday and I will give her an additional 5 mg today. I believe the nidus of this episode is most likely due to her sodium and she is currently being evaluated for possible SIADH. My suspicion is that once this is corrected, her blood pressure will again normalize, so we will cautiously control her blood pressure for now and no other cardiac testing is necessary at this time. Thank you very much for allowing me to participate in the care of your patient.
[2017-05-02 11:10] VITALS: BP 125/74; PULSE 59; TEMP 36.4; O2SAT 97
[2017-05-02 13:54] LABS: BUN/CREATININE RATIO 10.4 (10-20); CALCIUM 9.5 mg/dl (8.5-10.1); CREATININE 1.01 mg/dl (0.60-1.20); POTASSIUM 3.9 mmol/L (3.5-5.1)
[2017-05-02] MEDS ORDERED: COUGH DROP (SUGAR FREE) LOZ 24 LOZ/1 BOX ONE (14:31)
[2017-05-02] MEDS ORDERED: COUGH DROP (SUGAR FREE) LOZ 24 LOZ/1 BOX PO PRN (14:45)
[2017-05-02 15:29] VITALS: BP 125/75; PULSE 56; TEMP 36.4; O2SAT 97
[2017-05-02 18:55] VITALS: BP 134/77; PULSE 60; TEMP 36.6; O2SAT 96
[2017-05-02] MEDS: ENOXAPARIN 40 MG/0.4 ML SYR SC SCH (19:41)
[2017-05-02] MEDS ORDERED: ATORVASTATIN 10 MG TAB PO SCH (21:00)
[2017-05-02 23:44] VITALS: BP 162/82; PULSE 66; TEMP 36.6; O2SAT 98
[2017-05-03 00:57] VITALS: BP 170/80
[2017-05-03 03:15] VITALS: O2SAT 93
[2017-05-03 04:43] VITALS: BP 164/82; PULSE 63; TEMP 36.6; O2SAT 97
[2017-05-03] MEDS ORDERED: AMLODIPINE BESYLATE 5 MG TAB PO ONE (04:57)
[2017-05-03] MEDS: LEVOTHYROXINE 100 MCG TAB PO SCH (05:24)
[2017-05-03 06:21] LABS: BUN/CREATININE RATIO 15.2 (10-20); CREATININE 0.97 mg/dl (0.60-1.20); MAGNESIUM 2.1 mg/dl (1.8-2.4); POTASSIUM 3.8 mmol/L (3.5-5.1)
[2017-05-03 07:50] VITALS: BP 146/78; PULSE 59; TEMP 36.6; O2SAT 95
--- NOTE | 2017-05-03 07:52 | NEPHROLOGY CONSULTATION ---
DATE OF CONSULTATION: 05/03/2017 ATTENDING OF RECORD: Jose Thapa DO. REASON FOR CONSULTATION: Hyponatremia. HISTORY OF PRESENT ILLNESS: This is a 72-year-old female who presented with hypertension. The patient was found during that time to have a low sodium of 129 and trended down to 124 and is up to 128 this morning. The patient did have a history of hyponatremia in the past during knee surgery and was followed by Dr. Rain during that time. I did inquire to see if she would like to see Dr. Rain during this admission. The patient replied that, that would not be necessary and that she was not actively following Dr. Rain currently. The patient states that she normally drinks lots of water based on recommendations from her nephew who was an all natural text transcriber. The patient though has been under a lot of stress with her having medical problems. The patient did recently have a GI virus and was treated with Cipro for that and then underwent thrush and was medically treated for that. The patient was checking her blood pressure at home and it was 220/105 and she came into the hospital. Currently now her blood pressure is much better at 164/82 being medically managed by cardiology. PAST MEDICAL HISTORY: Hyperlipidemia, hypertension, hypothyroidism, osteoarthritis. PAST SURGICAL HISTORY: Bilateral knee replacements, tonsillectomy, hysterectomy. FAMILY HISTORY: Heart disease. SOCIAL HISTORY: No smoking, no alcohol, no drugs. She is . CURRENT MEDICATIONS: Norvasc 10 mg a day, Lipitor 10 mg 3 days a week, vitamin B12 1000 mcg daily, iron 325 daily, multivitamin daily, Synthroid 100 mcg daily, Ativan as needed, aspirin 81 mg a day, Coreg 12.5 mg p.o. b.i.d. REVIEW OF SYSTEMS: Positive stress, recovering from thrush. No shortness of breath, no chest pain, no nausea, vomiting. No rash or itching. No blurry vision. All other review of systems otherwise negative. PHYSICAL EXAMINATION: VITAL SIGNS: Temperature 36.6, pulse 63, respiratory rate 17, blood pressure 164/82, satting 97% on room air. GENERAL: Awake, alert, oriented x3. EYES: No scleral icterus. ENT: Moist mucous membranes. NECK: Supple. PULMONARY: Clear to auscultation. CARDIAC: Regular rate and rhythm. ABDOMEN: Bowel sounds positive, soft, nontender. EXTREMITIES: No clubbing, cyanosis or edema. NEUROLOGICALLY: Nonfocal. DERMATOLOGIC: No rash or ulcers noted. LABORATORY DATA: Sodium level is 128, potassium 3.8, chloride is 90, bicarbonate is 30, BUN is 15, creatinine 0.97, glucose 93, calcium is 9. Mag is 2.1. TSH is 0.452. Serum osmolality is 267. Urine osmolality is 256 with a UA that was bland. IMPRESSION AND PLAN: Hyponatremia. The patient appears to have a history of hyponatremia in the past during times of stressful events. The patient has been recently ill and is under more stress with her 's medical problems. The patient does drink a lot of water at baseline because she knows drinking water is good for her. I encouraged continued fluid restriction of 1800 mL for now and restarted Lasix 20 mg a day and would recommend repeating BMP in a week to follow sodium levels, potassium levels. May need to restrict fluids more than 1800 mL depending on what the sodium levels are doing. Would not necessarily go up on the Lasix tabs any more than just 20 mg a day. Greatly appreciate cardiology for their efforts in controlling the patient's blood pressures. Thyroid levels appear stable. Te patient likely has an element of SIADH as the patient appears euvolemic and is likely secondary to stress with increased water intake. Would restrict fluids, continue Lasix, hold on initiating salt tablets given her hypertensive issues and restrict fluids as an outpatient, more if necessary with the goal sodium of 130. Appreciate consultation.
[2017-05-03] MEDS: NYSTATIN SUSP 500,000 U/5 ML UDC PO SCH ×2 (07:53→10:24)
[2017-05-03] MEDS: CYANOCOBALAMIN 500 MCG TAB (VIT B-12) PO SCH (07:54)
[2017-05-03] MEDS: ASPIRIN 81 MG ECTAB PO SCH (07:54)
[2017-05-03] MEDS: FERROUS SULFATE 325 MG TAB PO SCH (07:54)
[2017-05-03] MEDS: CARVEDILOL 12.5 MG TAB PO SCH (07:55)
[2017-05-03] MEDS: CEROVITE ADV FORMULA TAB PO SCH (07:55)
[2017-05-03] MEDS ORDERED: FUROSEMIDE 20 MG TAB PO SCH (09:00)
[2017-05-03] MEDS ORDERED: AMLODIPINE BESYLATE 5 MG TAB PO SCH ×2 (09:00)
[2017-05-03 09:54] VITALS: BP 146/78; PULSE 59; TEMP 36.6; O2SAT 95
[2017-05-03 11:33] VITALS: BP 110/72; PULSE 56; TEMP 36.4; O2SAT 99
--- NOTE | 2017-05-03 12:26 | Progress Note ---
Medicine Progress Note Date & Time of Visit: May 03, 2017 at 12:00. Subjective Pt was seen and examined Sitting in chair comfortable with Sister present watching TV Pt said that she feels fine she denies any chest pain, palpitation, dizziness and SOB Objective Last 8 Hrs Date Time Temp Pulse Resp B/P (MAP) Pulse Ox O2 Delivery O2 Flow Rate FiO2 05/03/17 11:33 36.4 56 12 110/72 (85) 99 05/03/17 09:54 36.6 59 14 95 Room Air 05/03/17 08:00 Room Air 05/03/17 07:50 36.6 59 14 146/78 (100) 95 05/03/17 04:43 36.6 63 17 164/82 (109) 97 Room Air Physical Exam: General- No acute distress Head- atraumatic Eyes- PERRL, EOMI ENT- oropharynx clear Neck- supple, no JVD Lungs- clear to auscultation and percussion Heart- regular rhythm; no murmur Abdomen- normal bowel sounds, soft Extremities- no pretibial edema, no calf tenderness Neuro- alert, oriented x 3; PERRL, EOMI; no facial palsy Skin- warm & dry Laboratory Results: Last 24 Hours Test 05/02/17 13:00 05/02/17 14:01 05/03/17 05:13 Sodium Level 124 mmol/L 128 mmol/L Potassium Level 3.9 mmol/L 3.8 mmol/L Chloride Level 89 mmol/L 90 mmol/L Carbon Dioxide Level 26 mmol/L 30 mmol/L Anion Gap 9.0 mmol/L 8.0 mmol/L Blood Urea Nitrogen 10 mg/dl 15 mg/dl Creatinine 1.01 mg/dl 0.97 mg/dl Est Creatinine Clear Calc Drug Dose 50.6 ml/min 53.1 ml/min Estimated GFR () 64.9 68.1 Estimated GFR (Non- 56.0 58.8 BUN/Creatinine Ratio 10.4 15.2 Random Glucose 164 mg/dl 93 mg/dl Calcium Level 9.5 mg/dl 9.0 mg/dl Magnesium Level 2.1 mg/dl Assessment & Plan This is a 72 year old female with a PMH of HTN, HLD, hypothyroidism and recent GI illness presented secondary to hypertensive urgency Hypertensive Urgency Presented to the ED with blood pressure >200/100 Received Labetalol and Hydralazine in the ED Amlodipine increased to 10mg daily Continue Coreg 12.5 mg BID On lasix 20mg daily Continue monitor BP Hyponatremia SIADH Na dropped as low as 124 during this admission Hx of hyponatremia at baseline Has been drinking alot of water since water is good to keep her healthy Na today 128 serum and urine osm are both low, suggesting fluid overload Nephrology on board Recommended Lasix 20mg daily and fluid restriction to 1800mL/day Na goal above 130 No Salt tablet due to HTN Check BMP within 1 week Hypothyroidism TSH wnl continue Synthroid HLD continue her home dose of statin DVT ppx Lovenox FULL CODE Disposition Discharge home today Follow up with Dr. Fernandez (Dr. Dewey's colleague) on 05/08 @ 12:45 am Follow up with Cardiology Dr. Cox on May 20 @ 1:05 AM Check BMP in 1 week Monitor blood pressure and bring blood pressure log at your next appointment with Dr. Fernandez Fluid restriction to 1800ml daily Consultants: Cardio Nephrology Current Inpatient Medications: Current Inpatient Medications Medications (Trade) Dose Ordered Sig/Tejas Route Start Time Stop Time Status Last Admin Dose Admin Enoxaparin Sodium (Lovenox Inj) 40 mg QPM SC 05/01/17 21:00 05/31/17 20:59 05/02/17 19:41 40 MG Acetaminophen (Tylenol Tab) 650 mg Q4H PRN PO 05/01/17 17:15 05/31/17 17:14 Ondansetron HCl (Zofran Inj) 4 mg Q6H PRN IV 05/01/17 17:15 05/31/17 17:14 Nitroglycerin (Nitrostat Tab) 0.4 mg UD PRN SL 05/01/17 17:15 05/31/17 17:14 Aspirin (Ecotrin Tab) 81 mg DAILY PO 05/01/17 20:00 05/31/17 19:59 05/03/17 07:54 81 MG Atorvastatin Calcium (Lipitor Tab) 10 mg TuThSa@2100 PO 05/02/17 21:00 06/01/17 20:59 05/02/17 19:40 10 MG Cyanocobalamin (Vitamin B-12 Tab) 1,000 mcg DAILY PO 05/02/17 09:00 06/01/17 08:59 05/03/17 07:54 1,000 MCG Levothyroxine Sodium (Synthroid Tab) 100 mcg DAILYBB PO 05/02/17 06:00 06/01/17 06:59 05/03/17 05:24 100 MCG Ferrous Sulfate (Feosol Tab) 325 mg DAILY PO 05/02/17 09:00 06/01/17 08:59 05/03/17 07:54 325 MG Multivitamins/ Minerals (Multivitamin W/ Minerals Tab) 1 tab DAILY PO 05/02/17 09:00 06/01/17 08:59 05/03/17 07:55 1 TAB Nystatin (Mycostatin Susp) 5 ml QID PO 05/01/17 21:00 05/31/17 20:59 05/02/17 19:39 5 ML Carvedilol (Coreg Tab) 12.5 mg BID PO 05/01/17 18:40 05/31/17 18:39 05/03/17 07:55 12.5 MG Lorazepam (Ativan Inj) 0.5 mg Q4H PRN IV 05/01/17 23:30 05/31/17 23:29 Menthol (Nice Pato) 1 pato PRN PRN PO 05/02/17 14:45 06/01/17 14:44 Amlodipine Besylate (Norvasc Tab) 10 mg QAM PO 05/04/17 09:00 06/02/17 08:59 Furosemide (Lasix Tab) 20 mg QAM PO 05/03/17 09:00 06/02/17 08:59 05/03/17 07:54 20 MG
--- NOTE | 2017-05-03 12:30 | Discharge Instructions ---
Discharge Instructions Date of Service May 03, 2017. Admission Reason for Admission: Hypertensive Urgency Discharge Discharge Diagnosis / Problem: Hypertensive Urgency/Hyponatremia/SIADH/ Hypothyroidism/Dyslipidemia Discharge Goals Goal(s): Decrease discomfort, Improve function, Improve disease control Activity Recommendations Activity Limitations: resume your previous activity (as tolerated) . Instructions / Follow-Up Instructions / Follow-Up Discharge home today Follow up with Dr. Fernandez (Dr. Dewey's colleague) on 05/08 @ 12:45 PM Follow up with Cardiology Dr. Cox on May 20 @ 1:05 PM Check BMP in 1 week Monitor blood pressure and bring blood pressure log at your next appointment with Dr. Fernandez Fluid restriction to 1800ml daily Current Hospital Diet Patient's current hospital diet: AHA Diet (Heart Healthy) Discharge Diet Recommended Diet: AHA Diet (Heart Healthy) Fluid Restriction: 1800 ml (7 cups) Pending Studies Studies pending at discharge: no Medical Emergencies . Who to Call and When: Medical Emergencies: If at any time you feel your situation is an emergency, please call 911 immediately. . Non-Emergent Contact Non-Emergency issues call your: Primary Care Provider Call Non-Emergent contact if: you have any medication questions . . "Provider Documentation" section prepared by Curtis Oseguera. . VTE Core Measure Inpt VTE Proph given/why not?: Enoxaparin (Lovenox)SQ
[2017-05-03] MEDS ORDERED: LSX20 PO (12:33)
[2017-05-03] MEDS ORDERED: NRV/10 PO (12:33)
[2017-05-04] MEDS ORDERED: AMLODIPINE BESYLATE 5 MG TAB PO SCH (09:00)
--- NOTE | 2017-05-06 08:55 | Discharge Summary ---
Discharge Summary Date of Service May 06, 2017. Discharge Summary Admission Date: May 01, 2017 at 17:11 Discharge Date: May 03, 2017 Discharge Disposition: Home Principal Diagnosis: Hypertensive Urgency Secondary Diagnoses/Problems: Hyponatremia SIADH Hypothyroidism Dyslipidemia Procedures: ECHO Interpretation Summary * Name: DALLIN HUERTAS Study Date: 05/02/2017 08:30 AM BP: 155/76 mmHg * Patient Location: [facility] HR: 66 * : 1945 (M/d/yyyy) Gender: Female Height: 63 in * Age: 72 yrs Ethnicity: [place] Weight: 180 lb * Ordering Physician: Kasey Livingston * Referring Physician: Self, Referred * Performed By: Zain Boudreaux RCS * * Reason For Study: Hypertensive Urgency * BSA: 1.8 m2 * -- Conclusions -- * No significant change compared to previous study of 02/25/17. * Normal LV chamber size and wall thickness. * Normal LV systolic function, EF 55-60% * No segmental left ventricular wall motion abnormalities are noted. * Grade I diastolic dysfunction. * Aortic valve sclerosis moderate, without significant aortic valvular stenosis. * Mild mitral regurgitation. * Mild tricuspid regurgitation. Procedure Details * A complete two-dimensional transthoracic echocardiogram was performed (2D, M-mode, Doppler and color flow Doppler). Left Ventricle * The left ventricle is normal in size. * There is normal left ventricular wall thickness. * Ejection Fraction = 55-60%. * Left ventricular systolic function is normal. * No segmental left ventricular wall motion abnormalities are noted. * The left ventricular wall motion is normal. Right Ventricle * The right ventricular cavity size is normal (basal dimension <4.2 cm in right ventricular apical 4-chamber view). * The right ventricular systolic function is normal as assessed by tricuspid annular plane systolic excursion (TAPSE) (normal >1.5 cm). Atria * The left atrial size is normal. * Right atrial size is normal. * No ASD detected; PFO is not assessed. Mitral Valve * The mitral valve anatomy is normal. * There is no mitral valve stenosis. * There is mild mitral regurgitation. Tricuspid Valve * The tricuspid valve anatomy is normal. * There is no tricuspid stenosis. * There is mild tricuspid regurgitation. Aortic Valve * The aortic valve is trileaflet. * Aortic valve sclerosis moderate, without significant aortic valvular stenosis. * There is no significant aortic regurgitation. Pulmonic Valve * The pulmonary valve is not well seen, but the Doppler examination is normal without significant regurgitation or stenosis. Great Vessels * The aortic root and proximal ascending aorta are normal sized. Pericardium/Pleural * There is no pericardial effusion. Left Ventricular Diastolic Function * Grade I diastolic dysfunction, (abnormal relaxation pattern). Consultations: Cardio Nephrology Medication Reconciliation New Medications: Amlodipine Besylate (Amlodipine Besylate) 10 Mg Tab 1 TAB PO DAILY for 30 Days Furosemide (Furosemide) 20 Mg Tab 20 MG PO QAM for 30 Days, #30 TAB Continued Medications: Albuterol Hfa (Ventolin Hfa) 200 Puffs/57338 Mcg Aers 2 PUFFS INH QID PRN for SOB/Wheezing Aspirin (Aspirin EC Low Dose) 81 Mg Ectab 81 MG PO DAILY Atorvastatin (Lipitor) 10 Mg Tab 10 MG PO 3XWK, TAB Carvedilol (Coreg) 12.5 Mg Tab 12.5 MG PO BID, TAB Clotrimazole (Mycelex) 10 Mg Tro 10 MG MT 5XD, BEATA allow to dissolve in mouth Coenzyme Q10 (Ubidecarenone) (Co Q10) 50 Mg Cap 100 MG PO DAILY, CAP Cyanocobalamin (Vitamin B-12) 500 Mcg Tab 1000 MCG PO DAILY, TAB Ferrous Sulfate (Iron) 325 Mg Tab 325 MG PO DAILY Fluticasone Propionate (Nasal) (Flonase Allergy Relief) 50 Mcg/Act Spr 2 SPRAY COLTON DAILY Krill Oil (Maximum Red Krill 300 mg) 1 Cap Cap 300 MG PO DAILY Levothyroxine Sodium (Synthroid) 100 Mcg Tab 100 MCG PO DAILY, TAB Multiple Vitamins W/ Minerals (Centrum Silver) 1 Chw Chw 1 TAB PO DAILY Admission Information HPI (per Admitting provider): 72 year old female who presents to the ED with elevated blood pressure. Recently patient has been under a large amount of stress with her being sick as well as herself with a GI illness. She completed a course of Cipro for suspected food poisoning. She then developed thrush and has been using Mycelex however she does not feel as though this is helping. Patient reports that she routinely takes her blood pressure 2-3 times/week. She last took her BP 2 days ago and it was at baseline for her (systolically 120s-130s). Today when she took it she reports it was 220 systolically. She denies any associated symptoms with it. No chest pain or shortness of breath. She denies headache, blurred vision, slurred speech, unilateral numbness, tingling, or weakness. She reports her GI symptoms are resolving. No abdominal pain, nausea, vomiting, or diarrhea. She does admit to significantly increasing her water intake with the GI illness. She denies lightheadedness, dizziness, diaphoresis, or syncopal events. No fever or chills. She denies urinary symptoms. In the ED, Patient's BP was found to be 221/105. She was given Labetalol 20mg IV and Hydralazine 10mg IV with mild improvement in BP. ED discussed the case with cardiology who recommended adding Norvasc 5mg PO which she received just prior to myself seeing her. Troponin is negative and EKG does not show any acute ST changes. Physical Exam (per Admitting): General Appearance: WD/WN, no apparent distress Head: normocephalic, atraumatic Eyes: normal inspection, EOMI, sclerae normal ENT: hearing grossly normal, + pertinent finding (mucous membranes moist, thrush noted on tongue ) Neck: supple, no JVD, trachea midline Respiratory/Chest: lungs clear, normal breath sounds, no respiratory distress Cardiovascular: regular rate, rhythm, no edema, normal peripheral pulses Abdomen/GI: normal bowel sounds, non tender, soft, no organomegaly Extremities/Musculoskelatal: normal inspection, no calf tenderness, normal capillary refill Neurologic/Psych: no motor/sensory deficits, alert, normal mood/affect, oriented x 3 Skin: normal color, warm/dry Hospital Course This is a 72 year old female with a PMH of HTN, HLD, hypothyroidism and recent GI illness presented secondary to hypertensive urgency Hypertensive Urgency Presented to the ED with blood pressure >200/100 Received Labetalol and Hydralazine in the ED Amlodipine increased to 10mg daily Continue Coreg 12.5 mg BID On lasix 20mg daily Continue monitor BP Hyponatremia SIADH Na dropped as low as 124 during this admission Hx of hyponatremia at baseline Has been drinking alot of water since water is good to keep her healthy Na today 128 serum and urine osm are both low, suggesting fluid overload Nephrology on board Recommended Lasix 20mg daily and fluid restriction to 1800mL/day Na goal above 130 No Salt tablet due to HTN Check BMP within 1 week Hypothyroidism TSH wnl continue Synthroid HLD continue her home dose of statin DVT ppx Lovenox FULL CODE Disposition Discharge home today Follow up with Dr. Fernandez (Dr. Dewey's colleague) on 05/08 @ 12:45 am Follow up with Cardiology Dr. Cox on May 20 @ 1:05 AM Check BMP in 1 week Monitor blood pressure and bring blood pressure log at your next appointment with Dr. Fernandez Fluid restriction to 1800ml daily Total time spent on discharge = 35 minutes This includes examination of the patient, discharge planning, medication reconciliation, and communication with other providers. Discharge Instructions Discharge Instructions Date of Service May 03, 2017. Admission Reason for Admission: Hypertensive Urgency Discharge Discharge Diagnosis / Problem: Hypertensive Urgency/Hyponatremia/SIADH/ Hypothyroidism/Dyslipidemia Discharge Goals Goal(s): Decrease discomfort, Improve function, Improve disease control Activity Recommendations Activity Limitations: resume your previous activity (as tolerated) . Instructions / Follow-Up Instructions / Follow-Up Discharge home today Follow up with Dr. Fernandez (Dr. Dewey's colleague) on 05/08 @ 12:45 PM Follow up with Cardiology Dr. Cox on May 20 @ 1:05 PM Check BMP in 1 week Monitor blood pressure and bring blood pressure log at your next appointment with Dr. Fernandez Fluid restriction to 1800ml daily Current Hospital Diet Patient's current hospital diet: AHA Diet (Heart Healthy) Discharge Diet Recommended Diet: AHA Diet (Heart Healthy) Fluid Restriction: 1800 ml (7 cups) Pending Studies Studies pending at discharge: no Medical Emergencies . Who to Call and When: Medical Emergencies: If at any time you feel your situation is an emergency, please call 911 immediately. . Non-Emergent Contact Non-Emergency issues call your: Primary Care Provider Call Non-Emergent contact if: you have any medication questions . . "Provider Documentation" section prepared by Curtis Oseguera. . VTE Core Measure Inpt VTE Proph given/why not?: Enoxaparin (Lovenox)SQ Additional Copies To Natalia Fernandez D.O., Laura, D.O.
== END 2017-05-03 13:09 | disposition home or self-care (01) | DRG 305 ==
LOC: C.EDB 12:40 → C.2T 17:11 → ENRESERV 17:20
PROVIDERS: ADMIT Hospitalist; ATTEND Internal Medicine
DX: I16.0 Hypertensive urgency (principal); E87.1 Hypo-osmolality and hyponatremia; B37.9 Candidiasis, unspecified; E78.5 Hyperlipidemia, unspecified; N76.0 Acute vaginitis; I10 Essential (primary) hypertension; E03.9 Hypothyroidism, unspecified; M19.90 Unspecified osteoarthritis, unspecified site; Z96.653 Presence of artificial knee joint, bilateral; Z90.711 Acquired absence of uterus with remaining cervical stump; Z79.82 Long term (current) use of aspirin; Z88.0 Allergy status to penicillin

== ENCOUNTER 2023-02-14 08:57 | Inpatient (IN) ==
--- NOTE | 2023-02-14 09:35 | Emergency Department Note ---
ED Visit Note Saw patient in conjunction with Dr. Solis. For more details, please refer to their note. . Resident Activity Tracking Resident Involvement: Resident Care Provided Care Provided: Adult ED
[2023-02-14 10:00] LABS: Basophils # (auto) 0.04 K/uL (0.00-0.20); Basophils % (auto) 0.5 %; Eosinophils % (auto) 2.3 %; Hematocrit (blood only) 29.1 % (37.0-47.0); Hemoglobin 9.8 g/dl (12.0-16.0); Immature Granulocytes # (auto) 0.04 K/uL (0.01-0.20); Immature Granulocytes % (auto) 0.5 %; Lymphocytes # (auto) 1.08 K/uL (1.20-3.40); Lymphocytes % (auto) 12.4 %; Mean Corpuscular Hemoglobin 27.1 pg (25.0-34.0); Mean Corpuscular Hgb Conc 33.7 g/dL (32.0-36.0); Mean Corpuscular Volume 80.6 fL (80.0-100.0); Mean Platelet Volume 8.1 fL (9.4-12.4); Monocytes # (auto) 0.85 K/uL (0.11-0.59); Monocytes % (auto) 9.8 %; Neutrophils % (auto) 74.5 %; Platelet Count 418 K/uL (130-400); RDW Coefficient of Variation 14.4 % (11.5-14.5); RDW Standard Deviation 42.4 fL (36.4-46.3); Red Blood Count 3.61 M/uL (4.20-5.40); White Blood Count 8.71 K/ul (4.8-10.8)
[2023-02-14 10:19] LABS: Albumin Globulin Ratio 1.2 (0.9-2); Albumin Level 3.8 gm/dl (3.4-5.0); BUN Creatinine Ratio 25.9 (10-20); Bilirubin,Total 0.5 mg/dl (0.2-1.0); Calcium 9.9 mg/dl (8.6-10.3); Creatinine Clr Calc Pharmacy 24.4 ml/min; Est GFR (African American) 35.4 ml/min; Est GFR (Non-African American) 30.5 ml/min; Globulin 3.2 gm/dl (2.5-4.0)
[2023-02-14 10:26] LABS: Troponin I High Sensitivity 12.1 pg/ml (0-14)
[2023-02-14 10:32] LABS: INR 1.1 (0.9-1.1); Prothrombin Time 11.5 Seconds (9.0-12.0); Thyroid Stimulating Hormone 37.33 uIu/ml (0.300-4.500)
[2023-02-14] MEDS ORDERED: IOVERSOL 350 MG 125mL Prefilled Syringe IV ONE (10:56)
--- NOTE | 2023-02-14 11:03 | CT Scan Report ---
CT ANGIOGRAM OF THE CHEST CLINICAL HISTORY: Dyspnea on exertion. COMPARISON STUDY: Chest x-ray dated 02/13/2023. TECHNIQUE: Following the IV administration of 119 cc of Optiray 350, CT angiogram of the chest was pe rformed from the upper abdomen to the thoracic inlet utilizing the pulmonary embolus protocol. Images are reviewed in the axial, sagittal, and coronal planes. 3-D MIPS images are created and assessed. I V contrast was administered without complication. A dose lowering technique was utilized adhering to the principles of ALARA. CT DOSE: 338.91 mGy.cm FINDINGS: Thyroid: Imaged portions of the thyroid gland are normal in size and attenuation. Thoracic aorta: There is moderate atherosclerotic calcification of the thoracic aorta, which is edgar l in caliber and demonstrates standard 3-vessel arch anatomy. No dissection is seen. Pulmonary vasculature: The main pulmonary arteries are dilated suggesting pulmonary artery hypertensi on.. There are no filling defects identified in main, lobar, or segmental pulmonary branches to sugge st pulmonary embolus. Heart: The heart is enlarged noting trace without pericardial effusion. The pulmonary arteries are de nsely calcified. Lungs and pleural spaces: There is multifocal airspace consolidation seen throughout both lungs. This is greatest in the upper lobes and at the left lung base. Foci of parenchymal scarring and sap security architect ural distortion are noted bilaterally. There are trace pleural effusions. The trachea and central air ways are clear. Mediastinum: There are minimally enlarged mediastinal lymph nodes. A precarinal node measures 10 mm s hort axis. Elin: Mildly enlarged hilar nodes measure up to 12 mm short axis. These are likely reactive. Axillae: There is no axillary lymphadenopathy. Upper abdomen: Cyst arising from the upper pole of the left kidney measure up to 4.9 cm. Partially vi sualized upper abdominal viscera is within normal limits. Skeletal structures: The skeletal structures are osteopenic. Degenerative change and mild kyphoscolio sis is noted in the thoracic spine. No lytic or blastic bony lesions are seen. Arthritic change is se en in the shoulders. IMPRESSION: 1. There is no evidence of pulmonary embolus in the main, lobar, or segmental pulmonary arteries. 2. Multifocal airspace consolidation as above. The appearance is typical for multifocal pneumonia. Cl inical correlation will be required and radiographic follow-up to resolution is recommended. 3. Cardiomegaly and trace pleural effusions. 4. Additional findings as above. ACT 112: Negative or not required by law. Electronically signed by: Gerald Loera M.D. 02/14/2023 11:01 AM
[2023-02-14 11:37] LABS: T4 Free Thyroxine 0.99 ng/dl (0.61-1.60)
[2023-02-14 11:58] LABS: Appearance Urine Clear (Clear); Bilirubin Urine Negative (Negative); Blood Urine Negative (Negative); Color Urine Yellow; Glucose Urine UA Negative (Negative); Ketones Urine Negative (Negative); Leukocyte Esterase Urine Negative (Negative); Nitrite Urine Negative (Negative); Protein Urine Negative (Negative); Specific Gravity Urine 1.014 (1.000-1.030); Urobilinogen Urine Negative (Negative); pH Urine 6.5 (4.5-7.5)
--- NOTE | 2023-02-14 12:00 | Emergency Department Note ---
Impression & Plan STONER (dyspnea on exertion), Abnormal CT scan of lung ED Provider Note Provider: Surinder Solis MD DATE OF SERVICE: 02/14/2023 CHIEF COMPLAINT: Shortness of breath HISTORY OF PRESENT ILLNESS: Patient is a 77-year-old female history of hypothyroidism, hypertension, CKD presenting here today for respiratory symptoms. Referred here on Saturday in the outpatient setting. Has been following in the outpatient setting for respiratory issues. Had a CT scan at the beginning of January showing pneumonia. Completed a course of Levaquin. Evidently has been desaturating on room air with ambulation but she states unless she really pushes herself she does not feel short of breath. Denies fever. Denies significant pain. Primary care referred her on Saturday but due to long waits in the ER on Saturday as well as when she came back on Saturday left without being seen both days. Blood work and testing worse completed. X-ray is concerning for possible multifocal pneumonia other blood work was reassuring. Respiratory viral panel at that time was reassuring. Was called back today by charge nurse and with her son did come here for evaluation. States she really wants to go home and that she is not feeling that bad. States that she knows that she has a bit of lung scarring and that her oxygen drops when she walks around but she is not concerned about this. PAST MEDICAL HISTORY: As noted above MEDICATIONS: Reviewed home medication SOCIAL HISTORY: Non-smoker, has dog at home PHYSICAL EXAM: GENERAL: alert and oriented in no acute distress on stretcher Head: normocephalic and atraumatic EYES: No injection, discharge or icterus. NECK: Trachea midline. ENT: Mucous membranes pink and moist. LUNGS: Airway patent. No retractions. Breath sounds clear with good air entry bilaterally. HEART: Regular rate and rhythm. No chest wall tenderness ABDOMEN: Soft and non-tender, without guarding or rebound. SKIN: Acyanotic, warm, dry, without rashes EXTREMITIES: Without swelling, tenderness or deformity NEUROLOGICAL: No focal deficits. No aphasia. No facial droop or slurred speech. Normal strength and tone in the extremities. Sensation to gross touch normal. Ambulatory. EK bpm normal sinus rhythm. No PVC or PAC. Left axis. No acute ST segment elevation or depression with a QTc of 426. CONTINUOUS CARDIAC MONITORING: was ordered and showed a heart rate of 60s-70s bpm in normal sinus rhythm Patient's laboratory studies and imaging reviewed. Differential includes Reactive airway disease, pneumonia, pneumothorax, COPD, CHF, infections, cardiac ischemia, pulmonary embolism, musculoskeletal, gastrointestinal, as well as other pathologies. IMPRESSION/MEDICAL DECISION MAKING: Reviewed recent notes from triage as well as notes from the outpatient setting over the last several days. Negative respiratory viral panel. Patient not hypoxic at rest but reports a little bit of dyspnea exertion when she really pushes herself. Denies feeling short of breath at rest. Denies fever. Denies chest pain. States she feels pretty well. From initial interaction and ongoing she is fairly clear that she does not really want to be here and wishes to go home soon as possible. Was able to convince her with her son to obtain basic blood work and CT imaging here. Review of the [facility] notes, PCP was strongly recommending this. No evidence at this time consistent with significant heart failure exacerbation. BNP only minimally elevated. TSH elevated but free T4 wi thin normal limits. No evidence of troponin elevation and EKG without significant findings of concerning for ACS. CKD appears stable and as such performed a CT of the chest without findings of PE. There is findings however concerning by report for multifocal airspace consolidation. Be unclear why she has this. Reviewing the [facility] records she had similar findings on the CT at the beginning of the month. Again completed a course of Levaquin and tried 1 dose of cefdinir the other day but got rid paced from it so did not persist. Not having fevers. No significant leukocytosis. No significant procalcitonin elevation. Seems like an atypical infectious process. Some chronic hyponatre blake is persistent. Reached out to the pulmonary team to discuss. In discussion both with the patient as well as with the pulmonary team given her lack of significant symptoms and testing to date including the CT as well as the blood work and infectious markers, she very strongly wants to go home pulmonary will work to establish close outpatient follow-up this coming week. Discussed with the patient strict return precautions. Patient without personal history of cancer or recent or national travel or other significant sick contacts. Does not seem consistent with TB. May be other atypical infection but given her stability this point close outpatient follow-up for possible bronc and further work-up seems reasonable as she again is feeling well and does not wish to stay in the hospital. Ambulatory to step pulse ox test obtained to determine possible need for home O2. Seen by the pulmonary PA here in the emergency department. Further review by pulmonary as well as Dr. Raygoza and eventually able to convince the patient to stay for antibiotics through the IV as well as bronchoscopy tomorrow. The [facility] hospitalist was contacted. Aztreonam and Flagyl ordered per recommendations of the pulmonary team. DIAGNOSIS: Dyspnea on exertion, abnormal lung CT DISPOSITION: Evaluation by the hospitalist team Past Med/Surg History Medical History JAYLEN (acute kidney injury) HTN (hypertension) Hyponatremia Social History Smoking Status: Never smoker Preferred Language: Ethiopian Feels Safe at Home: Yes Allergies Allergies Allergy/AdvReac Type Severity Reaction Status Date / Time Penicillins Allergy Intermediate HIVES Verified 05/01/17 13:22 Corticosteroids Allergy Mild ` Verified 05/01/17 13:22 (Glucocorticoids) naproxen Allergy Unknown UNKNOWN Verified 05/01/17 13:22 Home Meds Home Medications Medication Instructions Recorded Confirmed Krill Oil (Maximum Red Krill 300 300 mg PO DAILY ##0 05/01/17 02/14/23 mg) atorvastatin 10 mg tablet 10 mg PO DIRECTED 06/16/22 02/14/23 carvedilol 12.5 mg tablet 12.5 mg PO BID 06/16/22 02/14/23 furosemide 20 mg tablet 20 mg PO DAILY 06/16/22 02/14/23 levothyroxine 75 mcg tablet 75 mcg PO DAILY 06/16/22 02/14/23 [id number] tablet 1 tab PO DAILY 06/16/22 02/14/23 amlodipine 5 mg tablet (Norvasc) 2.5 mg PO DAILY 02/14/23 02/14/23 coQ10 (ubiquinol) 1 cap PO DAILY 02/14/23 02/14/23 iron 1 tab PO DAILY 02/14/23 02/14/23 Results & Data (ED) Vital Signs Vital Signs - 24 hr 02/14/23 09:01 02/14/23 09:30 02/14/23 11:18 Temperature 36.5 C Temperature Source Temporal Artery Scan Pulse Rate 66 67 67 Respiratory Rate 20 20 Respiratory Effort / Characteristics Non-Labored Respiratory Depth Normal Blood Pressure 127/63 149/71 H Blood Pressure Mean 84 97 Pulse Oximetry 97 95 Oxygen Delivery Method Room Air Room Air Sepsis Recent Fever Within 48 Hours No Sepsis New/Unexplained Change in Mental Status N/A Sepsis Action Taken by Nursing No Action Required 02/14/23 11:30 02/14/23 13:31 02/14/23 12:41 Temperature Temperature Source Pulse Rate 64 73 67 Respiratory Rate 20 16 Respiratory Effort / Characteristics Respiratory Depth Blood Pressure 133/63 133/61 Blood Pressure Mean 86 85 Pulse Oximetry 96 95 Oxygen Delivery Method Room Air Room Air Sepsis Recent Fever Within 48 Hours Sepsis New/Unexplained Change in Mental Status Sepsis Action Taken by Nursing 02/14/23 12:50 02/14/23 13:00 Temperature Temperature Source Pulse Rate 68 69 Respiratory Rate 24 19 Respiratory Effort / Characteristics Respiratory Depth Blood Pressure 141/75 H Blood Pressure Mean 97 Pulse Oximetry 96 95 Oxygen Delivery Method Room Air Room Air Sepsis Recent Fever Within 48 Hours Sepsis New/Unexplained Change in Mental Status Sepsis Action Taken by Nursing Laboratory Data 02/14/23 09:25 02/14/23 09:25 Lab Results 02/14/23 02/14/23 02/14/23 Range/Units 09:25 09:25 09:25 WBC 8.71 (4.8-10.8) K/ul RBC 3.61 L (4.20-5.40) M/uL Hgb 9.8 L (12.0-16.0) g/dl Hct 29.1 L (37.0-47.0) % MCV 80.6 (80.0-100.0) fL MCH 27.1 (25.0-34.0) pg MCHC 33.7 (32.0-36.0) g/dL RDW Std Deviation 42.4 (36.4-46.3) fL RDW Coeff of Kyra 14.4 (11.5-14.5) % Plt Count 418 H (130-400) K/uL MPV 8.1 L (9.4-12.4) fL Immature Gran % (Auto) 0.5 % Neut % (Auto) 74.5 % Lymph % (Auto) 12.4 % Craven % (Auto) 9.8 % Eos % (Auto) 2.3 % Baso % (Auto) 0.5 % Neut # (Auto) 6.50 (1.40-6.50) K/uL Lymph # (Auto) 1.08 L (1.20-3.40) K/uL Craven # (Auto) 0.85 H (0.11-0.59) K/uL Eos # (Auto) 0.20 (0.00-0.50) K/uL Baso # (Auto) 0.04 (0.00-0.20) K/uL Immature Gran # (Auto) 0.04 (0.01-0.20) K/uL PT 11.5 (9.0-12.0) Seconds INR 1.1 (0.9-1.1) Sodium (136-145) mmol/L Potassium (3.5-5.1) mmol/L Chloride (98-107) mmol/L Carbon Dioxide (21-32) mmol/L Anion Gap (3-11) BUN (6-23) mg/dl Creatinine (0.6-1.2) mg/dl Est Cr Clr Drug Dosing ml/min Est GFR ( Amer) ml/min Est GFR (Non-Af Amer) ml/min BUN/Creatinine Ratio (10-20) Glucose (70-99(Fasting)) mg/dl Lactate (0.4-2.0) mmol/L Calcium (8.6-10.3) mg/dl Total Bilirubin (0.2-1.0) mg/dl AST (13-39) U/L ALT (7-52) U/L Alkaline Phosphatase (34-104) U/L Troponin I High Sens (0-14) pg/ml B-Natriuretic Peptide (0-100) pg/ml Total Protein (6.0-8.3) gm/dl Albumin (3.4-5.0) gm/dl Globulin (2.5-4.0) gm/dl Albumin/Globulin Ratio (0.9-2) Procalcitonin 0.08 (0-0.5) ng/ml TSH (0.300-4.500) uIu/ml Free T4 (0.61-1.60) ng/dl Urine Color Urine Appearance (Clear) Urine pH (4.5-7.5) Ur Specific [place] (1.000-1.030) Urine Protein (Negative) Urine Glucose (UA) (Negative) Urine Ketones (Negative) Urine Blood (Negative) Urine Nitrite (Negative) Urine Bilirubin (Negative) Urine Urobilinogen (Negative) Ur Leukocyte Esterase (Negative) 02/14/23 02/14/23 02/14/23 Range/Units 09:25 09:25 10:31 WBC (4.8-10.8) K/ul RBC (4.20-5.40) M/uL Hgb (12.0-16.0) g/dl Hct (37.0-47.0) % MCV (80.0-100.0) fL MCH (25.0-34.0) pg MCHC (32.0-36.0) g/dL RDW Std Deviation (36.4-46.3) fL RDW Coeff of Kyra (11.5-14.5) % Plt Count (130-400) K/uL MPV (9.4-12.4) fL Immature Gran % (Auto) % Neut % (Auto) % Lymph % (Auto) % Craven % (Auto) % Eos % (Auto) % Baso % (Auto) % Neut # (Auto) (1.40-6.50) K/uL Lymph # (Auto) (1.20-3.40) K/uL Craven # (Auto) (0.11-0.59) K/uL Eos # (Auto) (0.00-0.50) K/uL Baso # (Auto) (0.00-0.20) K/uL Immature Gran # (Auto) (0.01-0.20) K/uL PT (9.0-12.0) Seconds INR (0.9-1.1) Sodium 126 L (136-145) mmol/L Potassium 4.0 (3.5-5.1) mmol/L Chloride 94 L (98-107) mmol/L Carbon Dioxide 23 (21-32) mmol/L Anion Gap 9 (3-11) BUN 42 H (6-23) mg/dl Creatinine 1.62 H (0.6-1.2) mg/dl Est Cr Clr Drug Dosing 24.4 ml/min Est GFR ( Amer) 35.4 ml/min Est GFR (Non-Af Amer) 30.5 ml/min BUN/Creatinine Ratio 25.9 H (10-20) Glucose 116 H (70-99(Fasting)) mg/dl Lactate (0.4-2.0) mmol/L Calcium 9.9 (8.6-10.3) mg/dl Total Bilirubin 0.5 (0.2-1.0) mg/dl AST 17 (13-39) U/L ALT 10 (7-52) U/L Alkaline Phosphatase 98 (34-104) U/L Troponin I High Sens 12.1 (0-14) pg/ml B-Natriuretic Peptide 190 H (0-100) pg/ml Total Protein 7.0 (6.0-8.3) gm/dl Albumin 3.8 (3.4-5.0) gm/dl Globulin 3.2 (2.5-4.0) gm/dl Albumin/Globulin Ratio 1.2 (0.9-2) Procalcitonin (0-0.5) ng/ml TSH 37.330 H (0.300-4.500) uIu/ml Free T4 0.99 (0.61-1.60) ng/dl Urine Color Urine Appearance (Clear) Urine pH (4.5-7.5) Ur Specific [place] (1.000-1.030) Urine Protein (Negative) Urine Glucose (UA) (Negative) Urine Ketones (Negative) Urine Blood (Negative) Urine Nitrite (Negative) Urine Bilirubin (Negative) Urine Urobilinogen (Negative) Ur Leukocyte Esterase (Negative) 02/14/23 02/14/23 Range/Units 10:35 11:38 WBC (4.8-10.8) K/ul RBC (4.20-5.40) M/uL Hgb (12.0-16.0) g/dl Hct (37.0-47.0) % MCV (80.0-100.0) fL MCH (25.0-34.0) pg MCHC (32.0-36.0) g/dL RDW Std Deviation (36.4-46.3) fL RDW Coeff of Kyra (11.5-14.5) % Plt Count (130-400) K/uL MPV (9.4-12.4) fL Immature Gran % (Auto) % Neut % (Auto) % Lymph % (Auto) % [place] % (Auto) % Eos % (Auto) % Baso % (Auto) % Neut # (Auto) (1.40-6.50) K/uL Lymph # (Auto) (1.20-3.40) K/uL [place]ven # (Auto) (0.11-0.59) K/uL Eos # (Auto) (0.00-0.50) K/uL Baso # (Auto) (0.00-0.20) K/uL Immature Gran # (Auto) (0.01-0.20) K/uL PT (9.0-12.0) Seconds INR (0.9-1.1) Sodium (136-145) mmol/L Potassium (3.5-5.1) mmol/L Chloride (98-107) mmol/L Carbon Dioxide (21-32) mmol/L Anion Gap (3-11) BUN (6-23) mg/dl Creatinine (0.6-1.2) mg/dl Est Cr Clr Drug Dosing ml/min Est GFR ( Amer) ml/min Est GFR (Non-Af Amer) ml/min BUN/Creatinine Ratio (10-20) Glucose (70-99(Fasting)) mg/dl Lactate 0.7 (0.4-2.0) mmol/L Calcium (8.6-10.3) mg/dl Total Bilirubin (0.2-1.0) mg/dl AST (13-39) U/L ALT (7-52) U/L Alkaline Phosphatase (34-104) U/L Troponin I High Sens (0-14) pg/ml B-Natriuretic Peptide (0-100) pg/ml Total Protein (6.0-8.3) gm/dl Albumin (3.4-5.0) gm/dl Globulin (2.5-4.0) gm/dl Albumin/Globulin Ratio (0.9-2) Procalcitonin (0-0.5) ng/ml TSH (0.300-4.500) uIu/ml Free T4 (0.61-1.60) ng/dl Urine Color Yellow Urine Appearance Clear (Clear) Urine pH 6.5 (4.5-7.5) Ur Specific [place] 1.014 (1.000-1.030) Urine Protein Negative (Negative) Urine Glucose (UA) Negative (Negative) Urine Ketones Negative (Negative) Urine Blood Negative (Negative) Urine Nitrite Negative (Negative) Urine Bilirubin Negative (Negative) Urine Urobilinogen Negative (Negative) Ur Leukocyte Esterase Negative (Negative) Administered Medications Discontinued Medications Ioversol (Ioversol 350 Mg 125ml Prefilled Syringe) 119 ml IV ONCE ONE Stop: 02/14/23 10:57 Last Admin: 02/14/23 10:46 Dose: 119 ml Documented By: Imaging Data Radiologist's Impression: Chest CTA 02/14/23 10:01 CT ANGIOGRAM OF THE CHEST CLINICAL HISTORY: Dyspnea on exertion. COMPARISON STUDY: Chest x-ray dated 02/13/2023. TECHNIQUE: Following the IV administration of 119 cc of Optiray 350, CT angiogram of the chest was performed from the upper abdomen to the thoracic inlet utilizing the pulmonary embolus protocol. Images are reviewed in the axial, sagittal, and coronal planes. 3-D MIPS images are created and assessed. IV contrast was administered without complication. A dose lowering technique was utilized adhering to the principles of ALARA. CT DOSE: 338.91 mGy.cm FINDINGS: Thyroid: Imaged portions of the thyroid gland are normal in size and attenuation. Thoracic aorta: There is moderate atherosclerotic calcification of the thoracic aorta, which is normal in caliber and demonstrates standard 3-vessel arch karol kenji. No dissection is seen. Pulmonary vasculature: The main pulmonary arteries are dilated suggesting pulmonary artery hypertension.. There are no filling defects identified in main, lobar, or segmental pulmonary branches to suggest pulmonary embolus. Heart: The heart is enlarged noting trace without pericardial effusion. The pulmonary arteries are densely calcified. Lungs and pleural spaces: There is multifocal airspace consolidation seen throughout both lungs. This is greatest in the upper lobes and at the left lung base. Foci of parenchymal scarring and architectural distortion are noted bilaterally. There are trace pleural effusions. The trachea and central airways are clear. Mediastinum: There are minimally enlarged mediastinal lymph nodes. A precarinal node measures 10 mm short axis. Elin: Mildly enlarged hilar nodes measure up to 12 mm short axis. These are likely reactive. Axillae: There is no axillary lymphadenopathy. Upper abdomen: Cyst arising from the upper pole of the left kidney measure up to 4.9 cm. Partially visualized upper abdominal viscera is within normal limits. Skeletal structures: The skeletal structures are osteopenic. Degenerative change and mild kyphoscoliosis is noted in the thoracic spine. No lytic or blastic bony lesions are seen. Arthritic change is seen in the shoulders. IMPRESSION: 1. There is no evidence of pulmonary embolus in the main, lobar, or segmental pulmonary arteries. 2. Multifocal airspace consolidation as above. The appearance is typical for multifocal pneumonia. Clinical correlation will be required and radiographic follow-up to resolution is recommended. 3. Cardiomegaly and trace pleural effusions. 4. Additional findings as above. ACT 112: Negative or not required by law. Electronically signed by: Gerald Loera M.D. 02/14/2023 11:01 AM Discharge Plan Visit Data Chief Complaint: Illness Stated Complaint: HOSPITAL WANTED HER TO COME BACK ED Provider: Surinder Solis Discharge Problem: STONER (dyspnea on exertion), Abnormal CT scan of lung Patient Disposition: Being Evaluated by Hospitalist Condition: Fair Prescriptions Prescriptions: No Action Krill Oil (Maximum Red Krill 300 mg) 1 CAP capsule 300 mg PO DAILY Qty: 0 carvedilol 12.5 mg tablet 12.5 mg PO BID atorvastatin 10 mg tablet 10 mg PO DIRECTED Rx Instructions: every other day. 3 or 4 times a week. levothyroxine 75 mcg tablet 75 mcg PO DAILY furosemide 20 mg tablet 20 mg PO DAILY Centrum Silver Tablet 1 tab PO DAILY coQ10 (ubiquinol) 1 cap PO DAILY Rx Instructions: OTC. Pt didn't give strength iron 1 tab PO DAILY Rx Instructions: pt didn't give strength. OTC amlodipine [Norvasc] 5 mg tablet 2.5 mg PO DAILY Rx Instructions: per pt its 2.5mg daily instead of 5 mg Referrals Referrals: [facility] [[facility] - Tiffanie Dewey DO [Primary Care Provider] - 02/15/23 8:30 am
[2023-02-14] MEDS ORDERED: AZTREONAM 1,000 MG in DEXTROSE 5% 100 ML IV STA (13:50)
[2023-02-14] MEDS ORDERED: metroNIDAZOLE 250 MG TAB PO STA (13:50)
--- NOTE | 2023-02-14 13:58 | History & Physical Report ---
Date of Service February 14, 2023 Assessment & Plan (1) Multifocal pneumonia: (2) Hypoxia: (3) STONER (dyspnea on exertion): (4) HTN (hypertension): (5) HLD (hyperlipidemia): (6) Hypothyroidism: Plan: 77 yo F with PMHx of HTN, HLD, CKD stage IV, who presents to the hospital with continued shortness of breath since the beginning of January when she was treated for bilateral pneumonia, pt underwent CT lung study which showed bilateral extensive pneumonia, in which she was placed on Levaquin and completed this about 2 weeks ago. She has another CT lung arranged but not until 02/20. Pt was walked in the office and pulse ox dropped to 84%. Multifocal pneumonia Dyspnea on exertion -Admit to [facility] [place] -CT from 02/14 reviewed showing: Multifocal airspace consolidation as above. The appearance is typical for multifocal pneumonia. Clinical correlation will be required and radiographic follow-up to resolution is recommended. Cardiomegaly and trace pleural effusions. -Previous CT chest done on 01/18/23 showed Extensive bilateral pneumonia. Cannot exclude underlying lung mass. Follow-up after resolution of current illness recommended. -Patient has O2 sats that are stable on room air at 92% at rest, per outpatient epic review dropped to 84% with ambulation -Patient started on aztreonam and Flagyl in the ER due to multiple allergies listed on the chart -- will also add doxycycline -Check legionella urine -Patient denies respiratory symptoms at present, may treat supportively -Obtain sputum culture, blood culture x2 -N.p.o. after midnight -Allow diet today -Pulmonology consulted, planning on bronchoscopy on 02/15 -Consider ID consultation after cultures obtained HTN - Continue antihypertensive medications - Chronic, stable HLD - Chronic, stable Hypothyroidism - TSH elevated at 37.33, and free T4 normal - recheck TSH and T4 within 2 weeks - Consider increase on levothyroxine pending multifocal pna is resolved DVT PPx: SCDs, teds FEN/GI: Allow heart healthy diet tonight, n.p.o. at midnight for bronchoscopy Lines: 2 peripheral IV CODE STATUS: Full code Dispo: From home, likely main hospital x 1-2 days, pending bronch results and culture sensitivities History of Present Illness Chief Complaint: Shortness of breath, referred to ER by PCP Primary Care Provider: Tiffanie Dewey DO This is a 77 yo F with PMHx of HTN, HLD, CKD stage IV, who presents to the hospital with continued shortness of breath since the beginning of January when she was treated for bilateral pneumonia, pt underwent CT lung study which showed bilateral extensive pneumonia, in which she was placed on Levaquin and completed this about 2 weeks ago. She has another CT lung arranged but not until 02/20. Pt was walked in the office and pulse ox dropped to 84%. She needed to stop and rest per outpt Epic review. Pt was referred to the ER for treatment and imaging studies per PCP. Patient reports that she feels very well, so well in fact that she does not want to be in the hospital, and initially did not think she needed to stay overnight for procedure. Pulmonology has been consulted and recommended the patient undergo a bronchoscopy on 02/15. Denies any fevers, sweats or chills. She lives at home by herself with a dog, no pet birds or other farm animals, her son visits her on a daily basis who has been well. She denies any exposure to mold. Denies history of smoking or secondhand exposure. Denies any history of known cancers or other underlying lung disorder such as COPD, asthma, substance exposure. Allergies Allergy/AdvReac Type Severity Reaction Status Date / Time Penicillins Allergy Intermediate HIVES Verified 05/01/17 13:22 Corticosteroids Allergy Mild ` Verified 05/01/17 13:22 (Glucocorticoids) naproxen Allergy Unknown UNKNOWN Verified 05/01/17 13:22 Home Medications Medication Instructions Recorded Confirmed Type Krill Oil (Maximum Red Krill 300 300 mg PO DAILY ##0 05/01/17 02/14/23 History mg) atorvastatin 10 mg tablet 10 mg PO DIRECTED 06/16/22 02/14/23 History carvedilol 12.5 mg tablet 12.5 mg PO BID 06/16/22 02/14/23 History furosemide 20 mg tablet 20 mg PO Q OTHER DAY PRN Leg 06/16/22 02/14/23 History swelling eojfxbsgtgyo-wllilutt-kgnmir tablet 1 tab PO DAILY 06/16/22 02/14/23 History amlodipine 5 mg tablet (Norvasc) 2.5 mg PO DAILY 02/14/23 02/14/23 History coQ10 (ubiquinol) 200 mg PO DAILY 02/14/23 02/14/23 History iron 1 tab PO DAILY 02/14/23 02/14/23 History levothyroxine 50 mcg capsule 50 mcg PO DAILY 02/14/23 02/14/23 History Past Med/Surg History Medical History (Updated 02/14/23 @ 14:48 by Carmen Ponce PA-C) JAYLEN (acute kidney injury) HTN (hypertension) Hyponatremia Surgical History (Updated 02/14/23 @ 14:49 by Carmen Ponce PA-C) History of arthroplasty of left knee History of arthroplasty of right knee History of tonsillectomy Hx of hysterectomy Family History (Updated 02/14/23 @ 14:50 by Carmen Ponce PA-C) Father Diabetes Sister Cancer Social History Smoking Status: Never smoker Second Hand Exposure: No; Do You Dip or Chew Tobacco: No; Tobacco Cessation Education Requested by Patient: No Hx Alcohol Use: No Hx Substance Use: No Preferred Language: Hungarian Communication Ability: Effective Audio Visual Technician Required: No Beliefs That Will Affect Care: None Current Living Situation: Alone Other Information That Helps Us Care for You: No Feels Safe at Home: Yes Safety Concerns: Feels Safe At This Time Assistive Devices: None Review of Systems Review of Systems: Constitutional: No fever, sweats or chills Eyes: No diplopia, no worsening or blurred vision ENT: normal hearing, no trouble swallowing Respiratory: No cough, sputum, dyspnea at rest, denies dyspnea on exertion Cardiovascular: No chest pain, tightness or palpitations Abdomen: No pain, nausea, vomiting, diarrhea or constipation Musculoskeletal: No joint pain, calf pain, swelling Neurologic: No weakness, numbness/tingling, or balance problems Psychiatric: No anxiety or depression Skin: No rash or itch Physical Exam Physical Exam: General: awake, alert, no apparent distress Head: Normocephalic, atraumatic ENT: PERRL, EOMI, no pharyngeal exudate, mucous membranes moist Chest: Diminished breath sounds at apices, +Fine crackles at bases bilatelly up to mid mathew worse on left compared to right, on room air, sats low-mid 90s at rest Cardiac: Regular rate and rhythm, no murmur, no JVD, normal peripheral pulses, good capillary refill Abdominal: NABS x 4 quadrants, soft, nondistended, nontender to palpation, no rebound or guarding Extremities: Normal inspection, no peripheral edema or erythema, calfs nontender to palpation Psych: Normal mood and affect Neuro: AAO x 3, strength intact bilaterally and rated 5/5, no motor deficits, speech is clear, no peripheral sensory deficits Results & Data Results & Data Vital Signs (Past 12 Hours) Vital Signs Temp Pulse Resp BP Pulse Ox O2 Del Method 02/14/23 13:31 73 02/14/23 11:30 64 20 133/63 96 Room Air 02/14/23 11:18 67 20 149/71 H 95 Room Air 02/14/23 09:30 67 02/14/23 09:01 36.5 C 66 20 127/63 97 Room Air Laboratory Results 02/14/23 14:10 Aerobic Blood Culture - Pending Blood Anaerobic Blood Culture - Pending 02/14/23 13:40 Gram Stain - Pending Sputum, Expectorated Sputum Culture - Pending 02/14/23 10:31 Aerobic Blood Culture - Pending Blood Anaerobic Blood Culture - Pending 02/14/23 02/14/23 02/14/23 11:38 10:35 10:31 WBC RBC Hgb Hct MCV MCH MCHC RDW Std Deviation RDW Coeff of Kyra Plt Count MPV Immature Gran % (Auto) Neut % (Auto) Lymph % (Auto) [place] % (Auto) Eos % (Auto) Baso % (Auto) Neut # (Auto) Lymph # (Auto) [place] # (Auto) Eos # (Auto) Baso # (Auto) Immature Gran # (Auto) PT INR Sodium Potassium Chloride Carbon Dioxide Anion Gap BUN Creatinine Est Cr Clr Drug Dosing Est GFR ( Amer) Est GFR (Non-Af Amer) BUN/Creatinine Ratio Glucose Lactate 0.7 Calcium Total Bilirubin AST ALT Alkaline Phosphatase Troponin I High Sens B-Natriuretic Peptide 190 H Total Protein Albumin Globulin Albumin/Globulin Ratio Procalcitonin TSH Free T4 Urine Color Yellow Urine Appearance Clear Urine pH 6.5 Ur Specific [place] 1.014 Urine Protein Negative Urine Glucose (UA) Negative Urine Ketones Negative Urine Blood Negative Urine Nitrite Negative Urine Bilirubin Negative Urine Urobilinogen Negative Ur Leukocyte Esterase Negative 02/14/23 02/14/23 02/14/23 09:25 09:25 09:25 WBC 8.71 RBC 3.61 L Hgb 9.8 L Hct 29.1 L MCV 80.6 MCH 27.1 MCHC 33.7 RDW Std Deviation 42.4 RDW Coeff of Kyra 14.4 Plt Count 418 H MPV 8.1 L Immature Gran % (Auto) 0.5 Neut % (Auto) 74.5 Lymph % (Auto) 12.4 [place] % (Auto) 9.8 Eos % (Auto) 2.3 Baso % (Auto) 0.5 Neut # (Auto) 6.50 Lymph # (Auto) 1.08 L [place] # (Auto) 0.85 H Eos # (Auto) 0.20 Baso # (Auto) 0.04 Immature Gran # (Auto) 0.04 PT INR Sodium 126 L Potassium 4.0 Chloride 94 L Carbon Dioxide 23 Anion Gap 9 BUN 42 H Creatinine 1.62 H Est Cr Clr Drug Dosing 24.4 Est GFR ( Amer) 35.4 Est GFR (Non-Af Amer) 30.5 BUN/Creatinine Ratio 25.9 H Glucose 116 H Lactate Calcium 9.9 Total Bilirubin 0.5 AST 17 ALT 10 Alkaline Phosphatase 98 Troponin I High Sens 12.1 B-Natriuretic Peptide Total Protein 7.0 Albumin 3.8 Globulin 3.2 Albumin/Globulin Ratio 1.2 Procalcitonin TSH 37.330 H Free T4 0.99 Urine Color Urine Appearance Urine pH Ur Specific [place] Urine Protein Urine Glucose (UA) Urine Ketones Urine Blood Urine Nitrite Urine Bilirubin Urine Urobilinogen Ur Leukocyte Esterase 02/14/23 02/14/23 09:25 09:25 WBC RBC Hgb Hct MCV MCH MCHC RDW Std Deviation RDW Coeff of Kyra Plt Count MPV Immature Gran % (Auto) Neut % (Auto) Lymph % (Auto) [place] % (Auto) Eos % (Auto) Baso % (Auto) Neut # (Auto) Lymph # (Auto) [place] # (Auto) Eos # (Auto) Baso # (Auto) Immature Gran # (Auto) PT 11.5 INR 1.1 Sodium Potassium Chloride Carbon Dioxide Anion Gap BUN Creatinine Est Cr Clr Drug Dosing Est GFR ( Amer) Est GFR (Non-Af Amer) BUN/Creatinine Ratio Glucose Lactate Calcium Total Bilirubin AST ALT Alkaline Phosphatase Troponin I High Sens B-Natriuretic Peptide Total Protein Albumin Globulin Albumin/Globulin Ratio Procalcitonin 0.08 TSH Free T4 Urine Color Urine Appearance Urine pH Ur Specific [place] Urine Protein Urine Glucose (UA) Urine Ketones Urine Blood Urine Nitrite Urine Bilirubin Urine Urobilinogen Ur Leukocyte Esterase Diagnostic Findings Chest CTA 02/14/23 10:01 CT ANGIOGRAM OF THE CHEST CLINICAL HISTORY: Dyspnea on exertion. COMPARISON STUDY: Chest x-ray dated 02/13/2023. TECHNIQUE: Following the IV administration of 119 cc of Optiray 350, CT angiogram of the chest was performed from the upper abdomen to the thoracic inlet utilizing the pulmonary embolus protocol. Images are reviewed in the axial, sagittal, and coronal planes. 3-D MIPS images are created and assessed. IV contrast was administered without complication. A dose lowering technique was utilized adhering to the principles of ALARA. CT DOSE: 338.91 mGy.cm FINDINGS: Thyroid: Imaged portions of the thyroid gland are normal in size and attenuation. Thoracic aorta: There is moderate atherosclerotic calcification of the thoracic aorta, which is normal in caliber and demonstrates standard 3-vessel arch anatomy. No dissection is seen. Pulmonary vasculature: The main pulmonary arteries are dilated suggesting pulmonary artery hypertension.. There are no filling defects identified in main, lobar, or segmental pulmonary branches to suggest pulmonary embolus. Heart: The heart is enlarged noting trace without pericardial effusion. The pulmonary arteries are densely calcified. Lungs and pleural spaces: There is multifocal airspace consolidation seen throughout both lungs. This is greatest in the upper lobes and at the left lung base. Foci of parenchymal scarring and architectural distortion are noted bilaterally. There are trace pleural effusions. The trachea and central airways are clear. Mediastinum: There are minimally enlarged mediastinal lymph nodes. A precarinal node measures 10 mm short axis. Elin: Mildly enlarged hilar nodes measure up to 12 mm short axis. These are likely reactive. Axillae: There is no axillary lymphadenopathy. Upper abdomen: Cyst arising from the upper pole of the left kidney measure up to 4.9 cm. Partially visualized upper abdominal viscera is within normal limits. Skeletal structures: The skeletal structures are osteopenic. Degenerative change and mild kyphoscoliosis is noted in the thoracic spine. No lytic or blastic bony lesions are seen. Arthritic change is seen in the shoulders. IMPRESSION: 1. There is no evidence of pulmonary embolus in the main, lobar, or segmental pulmonary arteries. 2. Multifocal airspace consolidation as above. The appearance is typical for multifocal pneumonia. Clinical correlation will be required and radiographic follow-up to resolution is recommended. 3. Cardiomegaly and trace pleural effusions. 4. Additional findings as above. ACT 112: Negative or not required by law. Electronically signed by: Gerald Loera M.D. 02/14/2023 11:01 AM Code Status & VTE Plan Code Status Full code Supervising Physician Co-Signing Physician Notes Pt seen and examined by me, care coordinated w/ G. MICHAEL Ponce, pls refer to her note above for further detail. Pt is a 77 yo F w/ HTN, HLD, CKD stage IV, who presents with continued shortness of breath w/ minimal exertion since the beginning of January when she was treated for bilateral pneumonia, pt underwent CT lung study which showed bilateral extensive pneumonia, in which she was placed on Levaquin and completed this about 2 weeks ago. She has another CT lung arranged but not until 02/20. Pt was seen in the office and O2 sats down to 84%. She needed to stop and rest per outpt record review. Pt was referred to the ER for treatment and imaging studies. Patient reports that she feels very well, so well in fact that she does not want to be in the hospital. Currently she is sitting up in bed in NAD. She is awake alert and answering appropriately. She is breathing comfortably on RA and saturating 93%. Heart sounds regular, lung sounds w/ diffuse mild rhonchi, no wheezing noted. Abdomen soft, nontender and nondistended. No LE edema, pt moves extremities. Skin is warm and dry. Pulmonology has been consulted by ED provider and pt was evaluated - recommended bronchoscopy tomorrow - on 02/15.In the meantime will cont. w/ abx. Likely will discuss w/ ID after cultx from bronchoscopy obtained and will narrow the abx down. MD Ana
--- NOTE | 2023-02-14 14:01 | Pulmonary Consultation ---
Date of Consultation February 14, 2023 Assessment & Plan (1) Multifocal pneumonia: (2) Dyspnea: (3) Hypoxia: (4) Hyponatremia: Plan IMPRESSION: 77-year-old female presenting with multifocal pneumonia which has been present for the last month. She has associated dyspnea on exertion. RECOMMENDATIONS: 1. Multifocal pneumonia - Review of comparison CT performed in the outpatient setting to be done in the month, there does appear to be some slight worsening in the LEFT lower lobe, while there is improvement in the RIGHT lower lobe. She has completed a course of Levaquin. Unfortunately, the patient had a reaction to cefdinir in the outpatient setting which precludes the use of cephalosporins. The patient also carries a significant history of penicillin reactions as well. While the patient is otherwise nontoxic, and clinically appears very well, I would advocate for the patient to be admitted on inpatient basis until we are able to obtain bronchial washing cultures and Gram stain to evaluate for organisms. In the interim, would recommend broad-spectrum antibiotics in the form of history in a.m. and Flagyl as per discussion with ER provider and pharmacy. Patient does warrant bronchoscopic evaluation given persistence of infiltrative changes despite greater than 3 weeks of symptoms and lack of resolution of findings. Patient undergo bronchoscopy tomorrow at 8 AM. She should be made n.p.o. after midnight. Would hold on DVT prophylaxis as well. Would recommend infectious disease consultation given persistence of patient's process as well as allergies to treatment. Will add urine legionella in the setting of atypical presentation with associated hyponatremia (however, this does appear to be the patient's baseline)Thank . Patient unable to provide sputum culture. 2. Dyspnea on Exertion - Likely secondary to #1. Initially had what sounds like a 6-minute walk test performed in the outpatient clinic. She obviously did not qualify for oxygen at that time. She saturating well on room air at this time. Patient is not interested in supplemental oxygen at this point. We will see what her bronchoscopic evaluation shows as well as responsiveness to pneumonia. Patient may warrant two-step evaluation on the inpatient setting and supplemental oxygen if needed. She is very hesitant about this at this point. 3. Hypoxia - Again, likely secondary to #1. Patient saturating well on room air at this time. 4. Hyponatremia - Appears to be the patient's baseline. Thank you for allowing us to participate in the care of this patient. We will continue to follow along during inpatient stay. Supervising Physician Co-Signing Physician Notes I saw and evaluated the patient with Jorge Rowley PA-C, and I agree with his findings and plan as documented in the note. Abnormal Chest CT Scan Pneumonia? Plan to do bronchoscopy in AM I have spent more than 50% of this [] minute encounter in counseling and/or coordination of care with patient. History of Present Illness Reason for Consultation: multifocal pneumonia Requesting Physician: Dr. Solis History of Present Illness Patient is a 77-year-old female with a significant past medical history of hypertension who presented to the emergency department a few days ago at the recommendation of her primary care provider after being evaluated for ongoing symptoms of shortness of breath with CT findings of multilobar pneumonia. At the beginning of the month, the patient had a routine appointment with your primary care provider during the exam, she noted findings of crackles throughout her lung mathew. They did ambulate the patient and she reports that she was short of breath at that time. She was not discharged to home on oxygen at that point. She underwent a chest x-ray and followed up with a CT which reportedly demonstrated multifocal pneumonia. The patient was placed on Levaquin of which she completed entire 10-day course. She states that she is overall not felt poorly. She reports other than shortness of breath with significant exertion, she denies complaints of cough, fevers, unintentional weight loss, chest pain, palpitations, night sweats, decreased appetite, or other beta symptoms. The patient reports no prior history of recurrent pneumonias. She reports no history of bronchitis or COPD. The patient is a lifelong non-smoker. 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 The patient reports no family history of similar symptoms in the past. She lives at home with her dog. No exposure to exotic birds, fish, turtles, or hot tubs. She reports no history of nocturnal breathing issues or GERD. Allergies Allergy/AdvReac Type Severity Reaction Status Date / Time Penicillins Allergy Intermediate HIVES Verified 05/01/17 13:22 Corticosteroids Allergy Mild ` Verified 05/01/17 13:22 (Glucocorticoids) naproxen Allergy Unknown UNKNOWN Verified 05/01/17 13:22 Home Medications Medication Instructions Recorded Confirmed Type Krill Oil (Maximum Red Krill 300 300 mg PO DAILY ##0 05/01/17 02/14/23 History mg) atorvastatin 10 mg tablet 10 mg PO DIRECTED 06/16/22 02/14/23 History carvedilol 12.5 mg tablet 12.5 mg PO BID 06/16/22 02/14/23 History furosemide 20 mg tablet 20 mg PO Q OTHER DAY PRN Leg 06/16/22 02/14/23 History swelling jgwynvyzlkps-qzlcsrku-jvysbe tablet 1 tab PO DAILY 06/16/22 02/14/23 History amlodipine 5 mg tablet (Norvasc) 2.5 mg PO DAILY 02/14/23 02/14/23 History coQ10 (ubiquinol) 200 mg PO DAILY 02/14/23 02/14/23 History iron 1 tab PO DAILY 02/14/23 02/14/23 History levothyroxine 50 mcg capsule 50 mcg PO DAILY 02/14/23 02/14/23 History Patient History Medical History (Updated 02/14/23 @ 14:48 by Carmen Ponce PA-C) JAYLEN (acute kidney injury) HTN (hypertension) Hyponatremia Surgical History (Updated 02/14/23 @ 14:49 by Carmen Ponce PA-C) History of arthroplasty of left knee History of arthroplasty of right knee History of tonsillectomy Hx of hysterectomy Family History (Updated 02/14/23 @ 14:50 by Carmen Ponce PA-C) Father Diabetes Sister Cancer Social History Smoking Status: Never smoker Second Hand Exposure: No; Do You Dip or Chew Tobacco: No; Tobacco Cessation Education Requested by Patient: No Hx Alcohol Use: No Hx Substance Use: No Preferred Language: Maltese Communication Ability: Effective Manager Aviation Required: No Beliefs That Will Affect Care: None Current Living Situation: Alone Other Information That Helps Us Care for You: No Feels Safe at Home: Yes Safety Concerns: Feels Safe At This Time Assistive Devices: None Review of Systems Review of Systems: A complete 10 point review of systems was reviewed with the patient with pertinent positives and negatives as per history of present illness. All else w ere negative. Physical Exam Physical Exam: VITAL SIGNS - Vital signs and nursing notes were reviewed. GENERAL - 77-year-old female appearing her stated age who is in no acute distress. Communicates well with provider and answers questions appropriately. SKIN - Without rashes or lesions. NOSE - Midline and without cyanosis. MOUTH/OROPHARYNX - Without perioral cyanosis. NECK - Neck with FROM. S LUNGS - Chest wall evaluation demonstrates normal chest wall A:P diameter. Auscultation reveals diffuse crackles. No wheezes appreciated. CARDIAC - RRR with S1/S2. No murmur, rubs, or gallops appreciated. ABDOMEN - Abdominal inspection demonstrates a flat abdomen. BS normoactive all four quadrants. No tenderness, palpable masses, or ascites noted. EXTREMITIES - Nail clubbing not present. No peripheral cyanosis. No pretibial edema present. PSYCH - A&Ox3 and cooperates fully with examiner. Pt is very pleasant and interacts well with examiner. Results & Data Results & Data Vital Signs (Past 12 Hours) Vital Signs Temp Pulse Resp BP Pulse Ox O2 Del Method 02/14/23 13:31 73 02/14/23 11:30 64 20 133/63 96 Room Air 02/14/23 11:18 67 20 149/71 H 95 Room Air 02/14/23 09:30 67 02/14/23 09:01 36.5 C 66 20 127/63 97 Room Air PG Care Time/CCT Total # of Minutes Spent Total Time Spent with Patient: Total time spent is greater than 50% in coordination of care (as documented) at patient's floor/unit and/or counseling patient: Coding Level of Care Code 67855 INT INP/OBS CARE 3/75MIN Diagnoses Multifocal pneumonia J18.9 Dyspnea R06.00 Hypoxia R09.02 Hyponatremia E87.1
[2023-02-14] MEDS ORDERED: DOXYCYCLINE HYCLATE 100 MG in DEXTROSE 5% 100 ML IV STA (16:04)
[2023-02-14] MEDS ORDERED: ACETAMINOPHEN 325 MG TAB PO PRN (17:00)
[2023-02-14] MEDS ORDERED: ONDANSETRON INJ 2 MG/ML 2 ML VIAL IV PRN (17:00)
[2023-02-14] MEDS: carvediloL 12.5 MG TAB PO SCH (21:41)
[2023-02-15] MEDS: DOXYCYCLINE HYCLATE 100 MG in DEXTROSE 5% 100 ML IV SCH ×2 (03:47→16:13)
[2023-02-15] MEDS: LEVOTHYROXINE SODIUM 50 MCG TABLET PO SCH (05:49)
[2023-02-15 06:44] LABS: Hematocrit (blood only) 25.1 % (37.0-47.0); Hemoglobin 8.5 g/dl (12.0-16.0); Mean Corpuscular Hemoglobin 27.3 pg (25.0-34.0); Mean Corpuscular Hgb Conc 33.9 g/dL (32.0-36.0); Mean Corpuscular Volume 80.7 fL (80.0-100.0); Mean Platelet Volume 8.3 fL (9.4-12.4); Platelet Count 353 K/uL (130-400); RDW Coefficient of Variation 14.2 % (11.5-14.5); RDW Standard Deviation 41.2 fL (36.4-46.3); Red Blood Count 3.11 M/uL (4.20-5.40); White Blood Count 6.93 K/ul (4.8-10.8)
[2023-02-15 07:09] LABS: Calcium 8.8 mg/dl (8.6-10.3); Chol HDL Ratio 3.8 (0-5); Creatinine Clr Calc Pharmacy 21.8 ml/min; Est GFR (African American) 30.7 ml/min; Est GFR (Non-African American) 26.5 ml/min; Potassium 3.8 mmol/L (3.5-5.1)
[2023-02-15 07:31] LABS: INR 1.1 (0.9-1.1); Prothrombin Time 11.8 Seconds (9.0-12.0)
[2023-02-15 07:40] LABS: Estimated Average Glucose 120 mg/dl; Hemoglobin A1C 5.8 % (4.5-5.6)
--- NOTE | 2023-02-15 07:48 | History & Physical Bridge Note ---
Date of Service February 15, 2023 History & Physical Bridge Note I have examined the patient, reviewed the History & Physical and in the interval since the performance of the History & Physical I have noted the following changes of clinical significance: no changes noted
--- NOTE | 2023-02-15 07:48 | Pre Anesthesia Assessment ---
Date of Service February 15, 2023 Pre Sedation Assessment Vital Signs Temp Pulse Pulse Resp BP BP Pulse Ox 02/15/23 08:35 72 18 118/63 95 02/15/23 08:30 65 18 105/54 L 94 02/15/23 08:25 67 18 124/57 L 99 02/15/23 08:21 68 18 139/60 100 02/15/23 07:28 02/15/23 07:00 36.6 C 65 16 133/68 95 02/14/23 19:50 02/14/23 20:03 36.4 C L 73 18 161/69 H 94 02/14/23 17:11 36.4 C L 72 16 123/70 93 02/14/23 16:30 68 13 96 02/14/23 16:00 64 12 119/65 95 02/14/23 15:35 67 21 132/59 L 94 02/14/23 15:00 73 15 95 02/14/23 14:30 71 20 155/91 H 92 02/14/23 14:12 74 22 158/73 H 95 02/14/23 13:00 69 19 141/75 H 95 02/14/23 12:50 68 24 96 02/14/23 12:41 67 16 133/61 95 02/14/23 13:31 73 02/14/23 11:30 64 20 133/63 96 02/14/23 11:18 67 20 149/71 H 95 02/14/23 09:30 67 02/14/23 09:01 36.5 C 66 20 127/63 97 O2 Del Method O2 Flow Rate 02/15/23 08:35 Oxymask 4 02/15/23 08:30 Oxymask 4 02/15/23 08:25 Oxymask 4 02/15/23 08:21 Oxymask 4 02/15/23 07:28 Room Air 02/15/23 07:00 Room Air 02/14/23 19:50 Room Air 02/14/23 20:03 Room Air 02/14/23 17:11 Room Air 02/14/23 16:30 Room Air 02/14/23 16:00 Room Air 02/14/23 15:35 Room Air 02/14/23 15:00 Room Air 02/14/23 14:30 Room Air 02/14/23 14:12 Room Air 02/14/23 13:00 Room Air 02/14/23 12:50 Room Air 02/14/23 12:41 Room Air 02/14/23 13:31 02/14/23 11:30 Room Air 02/14/23 11:18 Room Air 02/14/23 09:30 02/14/23 09:01 Room Air Pre-Sedation Airway Assessment Smoking Status: Never smoker Mallampati Class: II ASA: ASA2 Procedure Planning Contraindications for Sedation: none Current Medications Reviewed: Yes Notes The planned sedation has been discussed with the patient. Informed Consent was obtained. I have identified the patient, determined the appropriateness of sedation and have assessed the patient immediately prior to the procedure. All medicine(s) and interventions are by my order.
[2023-02-15] MEDS ORDERED: MIDAZOLAM HCL 5 MG/ML 1 ML VIAL ONE (08:11)
[2023-02-15] MEDS ORDERED: fentaNYL citrate PF 100 MCG/2 ML VIAL ONE (08:11)
--- NOTE | 2023-02-15 08:41 | Post Anesthesia Assessment ---
Date of Service February 15, 2023 Post Sedation Assessment Vital Signs Temp Pulse Pulse Resp BP BP Pulse Ox 02/15/23 08:35 72 18 118/63 95 02/15/23 08:30 65 18 105/54 L 94 02/15/23 08:25 67 18 124/57 L 99 02/15/23 08:21 68 18 139/60 100 02/15/23 07:28 02/15/23 07:00 36.6 C 65 16 133/68 95 02/14/23 19:50 02/14/23 20:03 36.4 C L 73 18 161/69 H 94 02/14/23 17:11 36.4 C L 72 16 123/70 93 02/14/23 16:30 68 13 96 02/14/23 16:00 64 12 119/65 95 02/14/23 15:35 67 21 132/59 L 94 02/14/23 15:00 73 15 95 02/14/23 14:30 71 20 155/91 H 92 02/14/23 14:12 74 22 158/73 H 95 02/14/23 13:00 69 19 141/75 H 95 02/14/23 12:50 68 24 96 02/14/23 12:41 67 16 133/61 95 02/14/23 13:31 73 02/14/23 11:30 64 20 133/63 96 02/14/23 11:18 67 20 149/71 H 95 02/14/23 09:30 67 02/14/23 09:01 36.5 C 66 20 127/63 97 O2 Del Method O2 Flow Rate 02/15/23 08:35 Oxymask 4 02/15/23 08:30 Oxymask 4 02/15/23 08:25 Oxymask 4 02/15/23 08:21 Oxymask 4 02/15/23 07:28 Room Air 02/15/23 07:00 Room Air 02/14/23 19:50 Room Air 02/14/23 20:03 Room Air 02/14/23 17:11 Room Air 02/14/23 16:30 Room Air 02/14/23 16:00 Room Air 02/14/23 15:35 Room Air 02/14/23 15:00 Room Air 02/14/23 14:30 Room Air 02/14/23 14:12 Room Air 02/14/23 13:00 Room Air 02/14/23 12:50 Room Air 02/14/23 12:41 Room Air 02/14/23 13:31 02/14/23 11:30 Room Air 02/14/23 11:18 Room Air 02/14/23 09:30 02/14/23 09:01 Room Air Discharge Sedation Level of Care: Fast Track Phase II Post Sedation Plan On clinical assessment, the patient appears to have tolerated the sedation without complications. Patient is recovering as anticipated. Patient will continue to be monitored by nursing and may be discharged when sedation discharge criteria are met per below protocol. Upon Completions of procedure up to 15 minutes continue every 5 minute vital signs and the P.A.R. score; then discharge to a Phase I or Fast Track to Phase II per the following guidelines: * Discharge Patient to appropriate Phase II area if PAR is 8 or greater or return to pre- procedure baseline. The post - procedure orders will be as directed. * If PAR score is less than 8 or not return to pre-procedure baseline then patient will follow Phase I monitoring till PAR is reached for Phase II. The Phase I may be done in procedure room or may call to secure a Phase I area. * If naloxone or flumazenil are used for reversal, hold in Phase I for continued monitoring from when last reversal dose was given for a minimum of 60 minutes or longer pending the nurse and/or physician discretion of patient condition before discharge to Phase II. Please call the Sedation Physician to re-evaluate and complete post-note for discharge to Phase II area. Do NOT discharge from procedure sedation or Phase 1 until post- sedation evaluation note is complete by procedure /sedation MD Sedation Discharge Instructions to be given to the patient at discharge to home.
--- NOTE | 2023-02-15 08:41 | Procedure Note ---
Procedure Note: Bronchoscopy Procedure PREOPERATIVE DIAGNOSIS: Multilobar pneumonia POSTOPERATIVE DIAGNOSIS: Multilobar pneumonia PROCEDURE PERFORMED: Flexible fiberoptic bronchoscopy with bronchoalveolar lavage and brushings COMPLICATIONS: None. INDICATION: Rule out atypical infection PROCEDURE: After obtaining an informed consent, the patient was brought to the Bronchoscopy Suite. The patient had appropriate oxygen, blood pressure, heart rate, and respiratory rate monitoring applied and monitored continuously throughout the procedure. Supplemental oxygen via nasal cannula as per nursing records was applied to the nasopharynx with adequate saturations achieved. Topical anesthesia with nebulized 1% lidocaine was achieved. Subsequent to this, the patient was premedicated with 2 mg of midazolam and 50 mcg of fentanyl. Sedation start: 8:21 AM Procedure end: 8:37 AM Upper Airway: The oropharynx and larynx were well visualized and showed mild erythema, mild edema, otherwise negative. There was normal vocal cord motion without masses or lesions. Additional topical anesthesia with 1% lidocaine was applied to the trachea and eamon. The trachea appeared normal.The bronchoscope was then advanced through the eamon, which was sharp. The scope was then advanced into the right main stem and each segment, subsegement in the right upper lobe, right middle lobe and right lower lobe were visualized. There was minimal amount of clear secretion which were suctioned out. There were no other findings including evidence of mass, anatomic distortions, or hemorrhage. The bronchoscope was subsequently withdrawn and advanced into the left mainstem. Again, each segment and subsegment was well visualized. No specific masses or other lesions were identified throughout the tracheobronchial tree on the left. There was minimal amount of clear secretion which was suctioned out. The bronchoscope was then wedged in the left lower lobe anterior segment and bronchoalveolar lavage samples were obtained. 120 ml of saline was instilled and 45 ml of fluid was aspirated back.The bronchoscope was withdrawn and the area was suctioned clear. Multiple brushings were obtained from the left lower lobe anterior and lateral segment The bronchoscope was then wedged in the right upper lobe anterior segment and bronchoalveolar lavage samples were obtained. 60 ml of saline was instilled and 35 ml of fluid was aspirated back.The bronchoscope was withdrawn and the area was suctioned clear. Multiple brushings were obtained from right upper lobe anterior and apical segments. Minimal hemorrhage was identified and suctioned clear without difficulty. The bronchoscope was then withdrawn to the mainstem. The area was suctioned clear. The bronchoscope was then withdrawn. The patient tolerated the procedure well without evidence of desaturation or complications. Bronchoalveolar lavage samples were sent for cell count, Gram stain and bacterial culture, AFB culture and smear, fungal culture and smear and cytology. Recommendations: Follow-up micro, cytology and pathology Follow-up chest x-ray Please note the above document was generated using voice recognition software. It may contain grammatical, syntax or spelling errors.Any formal questions or concerns about the content, text or information contained within the body of this dictation should be directly addressed to the provider for clarification. [facility] [place] Procedure Codes (Charges) Pulmonary/Thoracic Procedure 1: Pulmonary and Thoracic: 33311 Dx bronchoscopy/BAL Procedure 2: Pulmonary and Thoracic: 63743 Dx bronchoscopy/brush Sedation/Anesthesia Procedure 1: Sedation/Anesthesia: 70410 Mod Sedation by the same physician;Init15 Min Child Age 5 & Up
--- NOTE | 2023-02-15 09:43 | XRay Report ---
XR chest 1V portable CLINICAL HISTORY: s/p bronch COMPARISON STUDY: Chest radiograph February 13, 2023. Chest CT February 14, 2023. FINDINGS: There is no pneumothorax status post bronchoscopy. Cardiomegaly is unchanged. There is no p leural effusion. Multifocal airspace opacities within the lungs are again noted. Elevation of left he midiaphragm is unchanged. IMPRESSION: 1. No pneumothorax status post bronchoscopy. 2. No significant change in multifocal airspace opacities within lungs. ACT 112: Negative or not required by law. Electronically signed by: Stevan Joe M.D. 02/15/2023 9:42 AM
[2023-02-15 11:08] LABS: Eosinophil Body Fluid Man 4 %; Fluid Mono/Macrophage 57 %; Lymphocyte Body Fluid Man 22 %; Neutrophil Body Fluid Man 17 %
[2023-02-15] MEDS: ATORVASTATIN 10 MG TAB PO SCH (11:40)
[2023-02-15] MEDS: carvediloL 12.5 MG TAB PO SCH ×2 (11:40→20:53)
[2023-02-15] MEDS: MULTIVITAMIN TAB PO SCH (11:41)
[2023-02-15] MEDS: amLODIPine BESYLATE 5 MG TAB PO SCH (11:41)
--- NOTE | 2023-02-15 14:30 | Hospitalist Progress Note ---
Date of Service February 15, 2023 Assessment & Plan (1) Multifocal pneumonia: (2) Hypoxia: (3) STONER (dyspnea on exertion): (4) HTN (hypertension): (5) HLD (hyperlipidemia): (6) Hypothyroidism: Plan: 77 yo F with PMHx of HTN, HLD, CKD stage IV, who presents to the hospital with continued shortness of breath since the beginning of January when she was treated for bilateral pneumonia, pt underwent CT lung study which showed bilateral extensive pneumonia, in which she was placed on Levaquin and completed this about 2 weeks ago. She has another CT lung arranged but not until 02/20. Pt was walked in the office and pulse ox dropped to 84%. Multifocal pneumonia Dyspnea on exertion -CT from 02/14 reviewed showing: Multifocal airspace consolidation as above. The appearance is typical for multifocal pneumonia. Clinical correlation will be required and radiographic follow-up to resolution is recommended. Cardiomegaly and trace pleural effusions. -Previous CT chest done on 01/18/23 showed Extensive bilateral pneumonia. Cannot exclude underlying lung mass. Follow-up after resolution of current illness recommended. -Patient has O2 sats that are stable on room air at 92% at rest, per outpatient epic review dropped to 84% with ambulation -Patient started on aztreonam and Flagyl in the ER due to multiple allergies listed on the chart -- will also add doxycycline -Check legionella urine -Sputum culture, blood culture pending -Bronchoscopy by Dr. Raygoza today (02/15) -Follow-up micro, cytology and pathology, followup CXR -ID consulted HTN - Continue antihypertensive medications - Chronic, stable HLD - Chronic, stable Hypothyroidism - TSH elevated at 37.33, and free T4 normal - recheck TSH and T4 within 2 weeks - Consider increase on levothyroxine pending multifocal pna is resolved DVT PPx: SCDs, teds CODE STATUS: Full code Dispo: From home, likely main hospital x 1-2 days, pending bronch results and culture sensitivities Admission and Anticipated Discharge Date Admission Date: February 14, 2023 Supervising Physician Co-Signing Physician Notes Attending addendum The patient was seen and examined in medical floor She had a CT evidence of multilobar pneumonia beginning of January and finished a course of Levaquin about 2 weeks ago. Her saturation was low at doctor's visit and was sent in for further evaluation Noted to have multilobar pneumonia and has had bronchoscopy today Awaiting results of the bronchoscopy She has been feeling little better saturating normal on room air On examination Lying in bed comfortably No shortness of breath at rest and is hemodynamically stable Chest-decreased breath sound both sides with coarse crackles mostly at the right Heart-S1, S2 Abdomen-benign Extremitiesnegative for any edema Her labs, imaging studies and medication reviewed Has multilobar pneumonia with persistence of symptoms-has been on doxycycline and aztreonam Status post bronchoscopy -awaiting results Agree with assessment plan as outlined above by MICHAEL Enrique Dr Subjective Seen and examined in 351-2. Feeling well, denies any coughing or SOB. Resting comfortably. No F/C, lightheadedness, CP, SOB, N/V, abdominal pain, dysuria, diarrhea. Last bowel movement 2 days ago. Review of Systems Review of Systems: At least ten systems reviewed and negative except as noted in the HPI. Physical Exam Physical Exam: Gen: WD/WN, NAD, sitting in bedside chair, A&Ox3 HEENT: Normocephalic, atraumatic, conjunctivae moist, sclerae anicteric, mucous membranes moist Lung: Coarse breath sounds throughout, no wheezing Heart: Regular rate, regular rhythm, no murmurs, rubs, or gallops Abdomen: Soft, NT, ND +BS x 4 Extremities: no edema Skin: Warm, no rash Results & Data Results & Data Vital Signs (Past 12 Hours) Vital Signs Temp Pulse Pulse Resp BP Pulse Ox O2 Del Method 02/15/23 12:43 36.5 C 70 15 116/58 L 92 Room Air 02/15/23 11:23 36.4 C L 61 15 122/67 96 Room Air 02/15/23 10:50 36.5 C 61 16 122/71 94 Room Air 02/15/23 10:17 36.3 C L 66 17 137/63 92 Room Air 02/15/23 10:03 Oxymask 02/15/23 09:45 62 16 113/77 95 Room Air 02/15/23 09:30 61 16 121/62 94 Room Air 02/15/23 09:15 65 16 130/64 95 Room Air 02/15/23 09:00 68 16 123/58 L 96 Room Air 02/15/23 08:35 72 18 118/63 95 Oxymask 02/15/23 08:30 65 18 105/54 L 94 Oxymask 02/15/23 08:25 67 18 124/57 L 99 Oxymask 02/15/23 08:40 70 16 117/64 92 Room Air 02/15/23 08:21 68 18 139/60 100 Oxymask 02/15/23 07:28 Room Air 02/15/23 07:00 36.6 C 65 16 133/68 95 Room Air O2 Flow Rate 02/15/23 12:43 02/15/23 11:23 02/15/23 10:50 02/15/23 10:17 02/15/23 10:03 02/15/23 09:45 02/15/23 09:30 02/15/23 09:15 02/15/23 09:00 02/15/23 08:35 4 02/15/23 08:30 4 02/15/23 08:25 4 02/15/23 08:40 02/15/23 08:21 4 02/15/23 07:28 02/15/23 07:00 Laboratory Results Short CBC 02/15/23 Range/Units 05:30 WBC 6.93 (4.8-10.8) K/ul Hgb 8.5 L (12.0-16.0) g/dl Hct 25.1 L (37.0-47.0) % Plt Count 353 (130-400) K/uL BMP 02/15/23 05:30 Sodium 128 L Potassium 3.8 Chloride 97 L Carbon Dioxide 22 BUN 40 H Creatinine 1.82 H Glucose 94 Calcium 8.8 Diagnostic Findings Chest CTA 02/14/23 10:01 CT ANGIOGRAM OF THE CHEST CLINICAL HISTORY: Dyspnea on exertion. COMPARISON STUDY: Chest x-ray dated 02/13/2023. TECHNIQUE: Following the IV administration of 119 cc of Optiray 350, CT angiogram of the chest was performed from the upper abdomen to the thoracic inlet utilizing the pulmonary embolus protocol. Images are reviewed in the axial, sagittal, and coronal planes. 3-D MIPS images are created and assessed. IV contrast was administered without complication. A dose lowering technique was utilized adhering to the principles of ALARA. CT DOSE: 338.91 mGy.cm FINDINGS: Thyroid: Imaged portions of the thyroid gland are normal in size and attenuation. Thoracic aorta: There is moderate atherosclerotic calcification of the thoracic aorta, which is normal in caliber and demonstrates standard 3-vessel arch anatomy. No dissection is seen. Pulmonary vasculature: The main pulmonary arteries are dilated suggesting pulmonary artery hypertension.. There are no filling defects identified in main, lobar, or segmental pulmonary branches to suggest pulmonary embolus. Heart: The heart is enlarged noting trace without pericardial effusion. The pulmonary arteries are densely calcified. Lungs and pleural spaces: There is multifocal airspace consolidation seen throughout both lungs. This is greatest in the upper lobes and at the left lung base. Foci of parenchymal scarring and architectural distortion are noted bilaterally. There are trace pleural effusions. The trachea and central airways are clear. Mediastinum: There are minimally enlarged mediastinal lymph nodes. A precarinal node measures 10 mm short axis. Elin: Mildly enlarged hilar nodes measure up to 12 mm short axis. These are likely reactive. Axillae: There is no axillary lymphadenopathy. Upper abdomen: Cyst arising from the upper pole of the left kidney measure up to 4.9 cm. Partially visualized upper abdominal viscera is within normal limits. Skeletal structures: The skeletal structures are osteopenic. Degenerative change and mild kyphoscoliosis is noted in the thoracic spine. No lytic or blastic bony lesions are seen. Arthritic change is seen in the shoulders. IMPRESSION: 1. There is no evidence of pulmonary embolus in the main, lobar, or segmental pulmonary arteries. 2. Multifocal airspace consolidation as above. The appearance is typical for multifocal pneumonia. Clinical correlation will be required and radiographic follow-up to resolution is recommended. 3. Cardiomegaly and trace pleural effusions. 4. Additional findings as above. ACT 112: Negative or not required by law. Electronically signed by: Gerald Loera M.D. 02/14/2023 11:01 AM Chest X-Ray 02/15/23 08:43 XR chest 1V portable CLINICAL HISTORY: s/p bronch COMPARISON STUDY: Chest radiograph February 13, 2023. Chest CT February 14, 2023. FINDINGS: There is no pneumothorax status post bronchoscopy. Cardiomegaly is unchanged. There is no pleural effusion. Multifocal airspace opacities within the lungs are again noted. Elevation of left hemidiaphragm is unchanged. IMPRESSION: 1. No pneumothorax status post bronchoscopy. 2. No significant change in multifocal airspace opacities within lungs. ACT 112: Negative or not required by law. Electronically signed by: Stevan Joe M.D. 02/15/2023 9:42 AM
[2023-02-16] MEDS: DOXYCYCLINE HYCLATE 100 MG in DEXTROSE 5% 100 ML IV SCH ×2 (03:34→15:59)
[2023-02-16] MEDS: LEVOTHYROXINE SODIUM 50 MCG TABLET PO SCH (05:53)
[2023-02-16] MEDS: carvediloL 12.5 MG TAB PO SCH ×2 (08:17→20:38)
[2023-02-16] MEDS: MULTIVITAMIN TAB PO SCH (08:17)
[2023-02-16] MEDS: amLODIPine BESYLATE 5 MG TAB PO SCH (08:17)
[2023-02-16] MEDS: metroNIDAZOLE 500 MG TAB PO SCH ×3 (08:17→20:39)
[2023-02-16 08:41] LABS: Hematocrit (blood only) 26.2 % (37.0-47.0); Mean Corpuscular Hgb Conc 34.4 g/dL (32.0-36.0); Mean Corpuscular Volume 78.7 fL (80.0-100.0); Mean Platelet Volume 8.1 fL (9.4-12.4); Platelet Count 394 K/uL (130-400); RDW Coefficient of Variation 14.3 % (11.5-14.5); RDW Standard Deviation 40.8 fL (36.4-46.3); Red Blood Count 3.33 M/uL (4.20-5.40); White Blood Count 9.85 K/ul (4.8-10.8)
[2023-02-16] MEDS: AZTREONAM 2,000 MG in DEXTROSE 5% 100 ML IV SCH ×2 (08:48→19:39)
[2023-02-16 09:01] LABS: INR 1.1 (0.9-1.1); Prothrombin Time 11.7 Seconds (9.0-12.0)
[2023-02-16 09:14] LABS: Calcium 8.8 mg/dl (8.6-10.3); Creatinine Clr Calc Pharmacy 11.8 ml/min; Est GFR (African American) 14.7 ml/min; Est GFR (Non-African American) 12.7 ml/min; Potassium 4.3 mmol/L (3.5-5.1)
[2023-02-16] MEDS: SODIUM CHLORIDE 0.9% 1,000 ML IV SCH (14:10)
--- NOTE | 2023-02-16 14:19 | Hospitalist Progress Note ---
Date of Service February 16, 2023 Assessment & Plan (1) Multifocal pneumonia: (2) Hypoxia: (3) STONER (dyspnea on exertion): (4) HTN (hypertension): (5) HLD (hyperlipidemia): (6) Hypothyroidism: Plan: 77 yo F with PMHx of HTN, HLD, CKD stage IV, who presents to the hospital with continued shortness of breath since the beginning of January when she was treated for bilateral pneumonia, pt underwent CT lung study which showed bilateral extensive pneumonia, in which she was placed on Levaquin and completed this about 2 weeks ago. She has another CT lung arranged but not until 02/20. Pt was walked in the office and pulse ox dropped to 84%. Multifocal pneumonia-unresolved with persisting symptoms Dyspnea on exertion Has been started 1 aztreonam and Flagyl and later on doxycycline was added to cover atypicals Status post bronchoscopy-Gram stain is negative so far, AP pending and pathology pending Blood cultures have been negative Legionella titers pending Awaiting ID recommendation She has been feeling much better following bronchoscopy and wants to go home Will check with chest x-ray tomorrow Imaging studies -CT from 02/14 reviewed showing: Multifocal airspace consolidation as above. The appearance is typical for multifocal pneumonia. Clinical correlation will be required and radiographic follow-up to resolution is recommended. Cardiomegaly and trace pleural effusions. -Previous CT chest done on 01/18/23 showed Extensive bilateral pneumonia. Cannot exclude underlying lung mass. Follow-up after resolution of current illness recommended. Hyponatremia with JAYLEN Hyponatremia seems to be chronic and has been around upper 120s Likely secondary to possible SIADH JAYLEN is likely secondary to use of contrast We will give cautious amount of intravenous fluid and monitor PRP and electrolytes May need nephrology evaluation if kidney function does not improve subsequently HTN - Continue antihypertensive medications - Chronic, stable HLD - Chronic, stable Hypothyroidism - TSH elevated at 37.33, and free T4 normal - recheck TSH and T4 within 2 weeks - Consider increase on levothyroxine pending multifocal pna is resolved DVT PPx: SCDs, teds CODE STATUS: Full code Dispo: From home, likely main hospital x 1-2 days, pending bronch results and culture sensitivities Admission and Anticipated Discharge Date Admission Date: February 14, 2023 Subjective 02/16/2023 The patient was seen and examined in medical floor She has been feeling much better and denies any shortness of breath or cough at rest Her sodium has decreased to 124 without any associated symptoms She wants to go home Review of Systems Review of Systems: All systems reviewed and are unremarkable except as noted below Physical Exam Physical Exam: Lying in bed comfortably Constitutional: + ill appearing and average body habitus Eyes: PERRL, conjunctivae normal, anicteric sclerae ENMT: external ear and nose normal, oropharynx normal Neck: trachea midline, no thyromegaly Respiratory: no respiratory distress Auscultation: + diminished lung sounds and + crackles (Bilaterally at the bases) Cardiovascular: Rate/Rhythm: regular rate and regular rhythm; not tachycardic Heart Sounds: normal S1, normal S2 and + murmur Extremities: + edema (Trace edema bilaterally) Gastrointestinal (Abdomen): Inspection/Auscultation: normal bowel sounds; abdomen not distended Percussion/Palpation: abdomen soft; abdomen nontender Musculoskeletal: No acute arthritis involving any joint Neurologic: normal touch/pain/proprioception; + does not move all extremities and no focal motor deficits Results & Data Results & Data Vital Signs (Past 12 Hours) Vital Signs Temp Pulse Resp BP Pulse Ox O2 Del Method 02/16/23 07:30 Room Air 02/16/23 07:58 36.9 C 71 16 144/84 H 92 Room Air Laboratory Results Short CBC 02/16/23 Range/Units 06:56 WBC 9.85 (4.8-10.8) K/ul Hgb 9.0 L (12.0-16.0) g/dl Hct 26.2 L (37.0-47.0) % Plt Count 394 (130-400) K/uL BMP 02/16/23 06:56 Sodium 124 L Potassium 4.3 Chloride 94 L Carbon Dioxide 20 L BUN 57 H Creatinine 3.35 H D Glucose 94 Calcium 8.8 Medications Administered Current Inpatient Medications Acetaminophen (Acetaminophen 325 Mg Tab) 650 mg PO Q4H PRN PRN Reason: Moderate Pain (Scale 4, 5, 6) Stop: 03/16/23 16:59 Amlodipine Besylate (Amlodipine Besylate 5 Mg Tab) 2.5 mg PO DAILY REPLACED BY [facility] Stop: 03/17/23 08:59 Last Admin: 02/16/23 08:17 Dose: 2.5 mg Atorvastatin Calcium (Atorvastatin 10 Mg Tab) 10 mg PO Q2D@0900 REPLACED BY [facility] Stop: 03/17/23 08:59 Last Admin: 02/15/23 11:40 Dose: 10 mg Carvedilol (Carvedilol 12.5 Mg Tab) 12.5 mg PO BID REPLACED BY [facility] Stop: 03/16/23 20:59 Last Admin: 02/16/23 08:17 Dose: 12.5 mg Doxycycline Hyclate 100 mg/ (Dextrose) 110 mls @ 50 mls/hr IV Q12H REPLACED BY [facility] Stop: 02/22/23 03:59 Last Infusion: 02/16/23 05:54 Dose: Infused Aztreonam 2,000 mg/ Dextrose 110 mls @ 100 mls/hr IV Q12H REPLACED BY [facility]; Protocol Stop: 02/23/23 07:59 Last Infusion: 02/16/23 10:40 Dose: Infused Sodium Chloride (Nss 1000ml) 1,000 mls @ 80 mls/hr IV .[id number] REPLACED BY [facility] Stop: 02/17/23 14:59 Last Admin: 02/16/23 14:10 Dose: 80 mls/hr Levothyroxine Sodium (Levothyroxine Sodium 50 Mcg Tablet) [facility] Stop: 03/17/23 06:29 Last Admin: 02/16/23 05:53 Dose: 50 mcg Metronidazole (Metronidazole 500 Mg Tab) 500 mg PO TID REPLACED BY [facility]; Protocol Stop: 02/23/23 08:59 Last Admin: 02/16/23 13:58 Dose: 500 mg Multivitamins (Multivitamin Tab) 1 tab PO DAILY REPLACED BY [facility] Stop: 03/17/23 08:59 Last Admin: 02/16/23 08:17 Dose: 1 tab Ondansetron HCl (Ondansetron Inj 2 Mg/Ml 2 Ml Vial) 4 mg IV Q4H PRN PRN Reason: Nausea And Vomiting Stop: 03/16/23 16:59
[2023-02-17] MEDS: SODIUM CHLORIDE 0.9% 1,000 ML IV SCH (02:50)
[2023-02-17] MEDS: DOXYCYCLINE HYCLATE 100 MG in DEXTROSE 5% 100 ML IV SCH ×2 (04:09→15:07)
[2023-02-17] MEDS: LEVOTHYROXINE SODIUM 50 MCG TABLET PO SCH (05:56)
[2023-02-17] MEDS: AZTREONAM 2,000 MG in DEXTROSE 5% 100 ML IV SCH ×2 (07:55→19:54)
[2023-02-17] MEDS: amLODIPine BESYLATE 5 MG TAB PO SCH (07:58)
[2023-02-17] MEDS: MULTIVITAMIN TAB PO SCH (07:59)
[2023-02-17] MEDS: carvediloL 12.5 MG TAB PO SCH ×2 (07:59→19:59)
[2023-02-17] MEDS: metroNIDAZOLE 500 MG TAB PO SCH ×3 (07:59→19:59)
[2023-02-17] MEDS: ATORVASTATIN 10 MG TAB PO SCH (08:00)
[2023-02-17 08:37] LABS: Basophils # (auto) 0.04 K/uL (0.00-0.20); Basophils % (auto) 0.5 %; Eosinophils # (auto) 0.32 K/uL (0.00-0.50); Eosinophils % (auto) 4.2 %; Hematocrit (blood only) 24.3 % (37.0-47.0); Hemoglobin 8.3 g/dl (12.0-16.0); Immature Granulocytes # (auto) 0.05 K/uL (0.01-0.20); Immature Granulocytes % (auto) 0.7 %; Lymphocytes # (auto) 1.47 K/uL (1.20-3.40); Lymphocytes % (auto) 19.4 %; Mean Corpuscular Hgb Conc 34.2 g/dL (32.0-36.0); Mean Corpuscular Volume 79.2 fL (80.0-100.0); Mean Platelet Volume 8.2 fL (9.4-12.4); Monocytes # (auto) 0.99 K/uL (0.11-0.59); Neutrophils # (auto) 4.72 K/uL (1.40-6.50); Neutrophils % (auto) 62.2 %; Platelet Count 340 K/uL (130-400); RDW Coefficient of Variation 14.5 % (11.5-14.5); RDW Standard Deviation 41.6 fL (36.4-46.3); Red Blood Count 3.07 M/uL (4.20-5.40); White Blood Count 7.59 K/ul (4.8-10.8)
[2023-02-17 09:21] LABS: INR 1.1 (0.9-1.1); Prothrombin Time 12.3 Seconds (9.0-12.0)
[2023-02-17 09:51] LABS: BUN Creatinine Ratio 16.6 (10-20); Calcium 8.5 mg/dl (8.6-10.3); Creatinine Clr Calc Pharmacy 11.7 ml/min; Est GFR (African American) 14.5 ml/min; Est GFR (Non-African American) 12.5 ml/min; Magnesium 1.7 mg/dl (1.7-2.4); Phosphorus 4.6 mg/dl (2.5-4.9); Potassium 4.2 mmol/L (3.5-5.1)
--- NOTE | 2023-02-17 10:31 | XRay Report ---
TWO VIEW CHEST CLINICAL HISTORY: Pneumonia. FINDINGS: PA and lateral chest radiographs are compared to study dated 02/15/2023 and correlated with c hest CT dated 02/14/2023. The heart is enlarged noting atherosclerotic calcification of the thoracic a kaitlin. The pulmonary vasculature is noncongested. Multifocal airspace consolidation is again seen thro ughout both lungs, greatest in the upper lobes and at the left lung base. No pleural effusion is iden tified. There is no pneumothorax. The skeletal structures are osteopenic. The bony thorax appears int act. Degenerative change and scoliosis is noted in the spine. IMPRESSION: 1. Cardiomegaly without radiographic evidence of congestive failure. 2. Multifocal airspace consolidation is typical for pneumonia and similar to 02/15/2023. ACT 112: Negative or not required by law. Electronically signed by: Gerald Loera M.D. 02/17/2023 10:29 AM
[2023-02-17] MEDS: SODIUM CHLORIDE 1 GM TABLET PO SCH ×2 (10:58→19:59)
--- NOTE | 2023-02-17 12:01 | Hospitalist Progress Note ---
Date of Service February 17, 2023 Assessment & Plan (1) Multifocal pneumonia: (2) Hypoxia: (3) STONER (dyspnea on exertion): (4) HTN (hypertension): (5) HLD (hyperlipidemia): (6) Hypothyroidism: Plan: 77 yo F with PMHx of HTN, HLD, CKD stage IV, who presents to the hospital with continued shortness of breath since the beginning of January when she was treated for bilateral pneumonia, pt underwent CT lung study which showed bilateral extensive pneumonia, in which she was placed on Levaquin and completed this about 2 weeks ago. She has another CT lung arranged but not until 02/20. Pt was walked in the office and pulse ox dropped to 84%. Multifocal pneumonia-unresolved with persisting symptoms Dyspnea on exertion Has been started 1 aztreonam and Flagyl and later on doxycycline was added to cover atypicals Status post bronchoscopy-Gram stain is negative so far, AP pending and pathology pending Blood cultures have been negative Legionella titers pending Awaiting ID recommendation She has been feeling much better following bronchoscopy and wants to go home Chest x-ray reviewed-multilobar pneumonia seems to be worse The patient is feeling better clinically Imaging studies -CT from 02/14 reviewed showing: Multifocal airspace consolidation as above. The appearance is typical for multifocal pneumonia. Clinical correlation will be required and radiographic follow-up to resolution is recommended. Cardiomegaly and trace pleural effusions. -Previous CT chest done on 01/18/23 showed Extensive bilateral pneumonia. Cannot exclude underlying lung mass. Follow-up after resolution of current illness recommended. Hyponatremia with JAYLEN Hyponatremia seems to be chronic and has been around upper 120s Likely secondary to possible SIADH JAYLEN is likely secondary to use of contrast We will give cautious amount of intravenous fluid and monitor PRP and electrolytes May need nephrology evaluation if kidney function does not improve subsequently Sodium level has slightly gone up to 127 IV fluid is stopped due to possible chest x-ray findings of congestion We will give sodium tablet for a day or 2 and monitor PRP HTN - Continue antihypertensive medications - Chronic, stable HLD - Chronic, stable Hypothyroidism - TSH elevated at 37.33, and free T4 normal - recheck TSH and T4 within 2 weeks - Consider increase on levothyroxine pending multifocal pna is resolved DVT PPx: SCDs, teds CODE STATUS: Full code Dispo: From home, likely main hospital x 1-2 days, pending bronch results and culture sensitivities Admission and Anticipated Discharge Date Admission Date: February 14, 2023 Subjective 02/16/2023 The patient was seen and examined in medical floor She has been feeling much better and denies any shortness of breath or cough at rest Her sodium has decreased to 124 without any associated symptoms She wants to go home 02/17/2023 The patient was seen and examined in medical floor She has been feeling much better and denies any cough and no shortness of breath at rest Her chest x-ray is not showing any improvement in the kidney function is a little worse She will be not discharged today Review of Systems Review of Systems: All systems reviewed and are unremarkable except as noted below Physical Exam Physical Exam: Lying in bed comfortably Constitutional: + ill appearing and average body habitus Eyes: PERRL, conjunctivae normal, anicteric sclerae ENMT: external ear and nose normal, oropharynx normal Neck: trachea midline, no thyromegaly Respiratory: no respiratory distress Auscultation: + diminished lung sounds and + crackles (Bilaterally at the bases) Cardiovascular: Rate/Rhythm: regular rate and regular rhythm; not tachycardic Heart Sounds: normal S1, normal S2 and + murmur Extremities: + edema (Trace edema bilaterally) Gastrointestinal (Abdomen): Inspection/Auscultation: normal bowel sounds; abdomen not distended Percussion/Palpation: abdomen soft; abdomen nontender Neurologic: normal touch/pain/proprioception; + does not move all extremities and no focal motor deficits Lymphatic: no cervical or axillary lymphadenopathy Results & Data Results & Data Vital Signs (Past 12 Hours) Vital Signs Temp Pulse Resp BP Pulse Ox O2 Del Method 02/17/23 07:54 36.9 C 67 16 138/71 94 Room Air Laboratory Results Short CBC 02/17/23 Range/Units 07:56 WBC 7.59 (4.8-10.8) K/ul Hgb 8.3 L (12.0-16.0) g/dl Hct 24.3 L (37.0-47.0) % Plt Count 340 (130-400) K/uL BMP 02/17/23 07:56 Sodium 127 L Potassium 4.2 Chloride 98 Carbon Dioxide 18 L BUN 56 H Creatinine 3.38 H Glucose 86 Calcium 8.5 L Medications Administered Current Inpatient Medications Acetaminophen (Acetaminophen 325 Mg Tab) 650 mg PO Q4H PRN PRN Reason: Moderate Pain (Scale 4, 5, 6) Stop: 03/16/23 16:59 Amlodipine Besylate (Amlodipine Besylate 5 Mg Tab) 2.5 mg PO DAILY [facility] Stop: 03/17/23 08:59 Last Admin: 02/17/23 07:58 Dose: 2.5 mg Atorvastatin Calcium (Atorvastatin 10 Mg Tab) 10 mg PO Q2D@0900 [facility] Stop: 03/17/23 08:59 Last Admin: 02/17/23 08:00 Dose: 10 mg Carvedilol (Carvedilol 12.5 Mg Tab) 12.5 mg PO BID [facility] Stop: 03/16/23 20:59 Last Admin: 02/17/23 07:59 Dose: 12.5 mg Doxycycline Hyclate 100 mg/ (Dextrose) 110 mls @ 50 mls/hr IV Q12H [facility] Stop: 02/22/23 03:59 Last Infusion: 02/17/23 06:26 Dose: Infused Aztreonam 2,000 mg/ Dextrose 110 mls @ 100 mls/hr IV Q12H [facility]; Protocol Stop: 02/23/23 07:59 Last Infusion: 02/17/23 09:16 Dose: Infused Levothyroxine Sodium (Levothyroxine Sodium 50 Mcg Tablet) 50 mcg PO DAILYBB [facility] Stop: 03/17/23 06:29 Last Admin: 02/17/23 05:56 Dose: 50 mcg Metronidazole (Metronidazole 500 Mg Tab) 500 mg PO TID [facility]; Protocol Stop: 02/23/23 08:59 Last Admin: 02/17/23 07:59 Dose: 500 mg Multivitamins (Multivitamin Tab) 1 tab PO DAILY [facility] Stop: 03/17/23 08:59 Last Admin: 02/17/23 07:59 Dose: 1 tab Ondansetron HCl (Ondansetron Inj 2 Mg/Ml 2 Ml Vial) 4 mg IV Q4H PRN PRN Reason: Nausea And Vomiting Stop: 03/16/23 16:59 Sodium Chloride (Sodium Chloride 1 Gm Tablet) 1 gm PO BID [facility] Stop: 03/19/23 10:59 Last Admin: 02/17/23 10:58 Dose: 1 gm
[2023-02-18] MEDS: DOXYCYCLINE HYCLATE 100 MG in DEXTROSE 5% 100 ML IV SCH ×2 (03:56→15:26)
[2023-02-18] MEDS: LEVOTHYROXINE SODIUM 50 MCG TABLET PO SCH (05:40)
[2023-02-18 07:00] LABS: BUN Creatinine Ratio 15.4 (10-20); Calcium 8.9 mg/dl (8.6-10.3); Est GFR (African American) 14.9 ml/min; Est GFR (Non-African American) 12.9 ml/min; Potassium 4.2 mmol/L (3.5-5.1)
[2023-02-18] MEDS: amLODIPine BESYLATE 5 MG TAB PO SCH (08:38)
[2023-02-18] MEDS: MULTIVITAMIN TAB PO SCH (08:38)
[2023-02-18] MEDS: SODIUM CHLORIDE 1 GM TABLET PO SCH ×2 (08:38→20:16)
[2023-02-18] MEDS: metroNIDAZOLE 500 MG TAB PO SCH ×3 (08:38→20:16)
[2023-02-18] MEDS: carvediloL 12.5 MG TAB PO SCH ×2 (08:38→20:16)
[2023-02-18] MEDS: AZTREONAM 2,000 MG in DEXTROSE 5% 100 ML IV SCH ×2 (08:55→20:12)
--- NOTE | 2023-02-18 14:32 | Hospitalist Progress Note ---
Date of Service February 18, 2023 Assessment & Plan (1) Multifocal pneumonia: (2) Hypoxia: (3) STONER (dyspnea on exertion): (4) HTN (hypertension): (5) HLD (hyperlipidemia): (6) Hypothyroidism: Plan: 77 yo F with PMHx of HTN, HLD, CKD stage IV, who presents to the hospital with continued shortness of breath since the beginning of January when she was treated for bilateral pneumonia, pt underwent CT lung study which showed bilateral extensive pneumonia, in which she was placed on Levaquin and completed this about 2 weeks ago. She has another CT lung arranged but not until 02/20. Pt was walked in the office and pulse ox dropped to 84%. Multifocal pneumonia-unresolved with persisting symptoms Dyspnea on exertion Has been started 1 aztreonam and Flagyl and later on doxycycline was added to cover atypicals Status post bronchoscopy-Gram stain is negative so far, AP pending and pathology pending Blood cultures have been negative Legionella titers pending Awaiting ID recommendation She has been feeling much better following bronchoscopy and wants to go home Chest x-ray reviewed-multilobar pneumonia seems to be worse Remains stable and has been saturating normally on room air We will continue current antibiotic and possible discharge home tomorrow following ID evaluation Imaging studies -CT from 02/14 reviewed showing: Multifocal airspace consolidation as above. The appearance is typical for multifocal pneumonia. Clinical correlation will be required and radiographic follow-up to resolution is recommended. Cardiomegaly and trace pleural effusions. -Previous CT chest done on 01/18/23 showed Extensive bilateral pneumonia. Cannot exclude underlying lung mass. Follow-up after resolution of current illness recommended. Hyponatremia with JAYLEN Hyponatremia seems to be chronic and has been around upper 120s Likely secondary to possible SIADH JAYLEN is likely secondary to use of contrast We will give cautious amount of intravenous fluid and monitor PRP and electrolytes May need nephrology evaluation if kidney function does not improve subsequently Sodium level has slightly gone up to 127 IV fluid is stopped due to possible chest x-ray findings of congestion We will give sodium tablet for a day or 2 and monitor PRP Kidney function is not any better and the patient was advised to drink more fluid Sodium level has improved a little bit at 127-monitor PRP HTN - Continue antihypertensive medications - Chronic, stable HLD - Chronic, stable Hypothyroidism - TSH elevated at 37.33, and free T4 normal - recheck TSH and T4 within 2 weeks - Consider increase on levothyroxine pending multifocal pna is resolved DVT PPx: SCDs, teds CODE STATUS: Full code Dispo: From home, likely main hospital x 1-2 days, pending bronch results and culture sensitivities Admission and Anticipated Discharge Date Admission Date: February 14, 2023 Subjective 02/16/2023 The patient was seen and examined in medical floor She has been feeling much better and denies any shortness of breath or cough at rest Her sodium has decreased to 124 without any associated symptoms She wants to go home 02/17/2023 The patient was seen and examined in medical floor She has been feeling much better and denies any cough and no shortness of breath at rest Her chest x-ray is not showing any improvement in the kidney function is a little worse She will be not discharged today 02/18/2023 The patient was seen and examined in medical floor She has been feeling much better and denies any symptoms at rest Her kidney function is not any better Strongly advised to drink more fluid Review of Systems Review of Systems: All systems reviewed and are unremarkable except as noted below Physical Exam Physical Exam: Lying in bed comfortably Constitutional: + ill appearing and average body habitus Eyes: PERRL, conjunctivae normal, anicteric sclerae ENMT: external ear and nose normal, oropharynx normal Neck: trachea midline, no thyromegaly Respiratory: no respiratory distress Auscultation: + diminished lung sounds and + crackles (Bilaterally at the bases) Cardiovascular: Rate/Rhythm: regular rate and regular rhythm; not tachycardic Heart Sounds: normal S1, normal S2 and + murmur Extremities: + edema (Trace edema bilaterally) Gastrointestinal (Abdomen): Inspection/Auscultation: normal bowel sounds; abdomen not distended Percussion/Palpation: abdomen soft; abdomen nontender Neurologic: normal touch/pain/proprioception; + does not move all extremities and no focal motor deficits Lymphatic: no cervical or axillary lymphadenopathy Results & Data Results & Data Vital Signs (Past 12 Hours) Vital Signs Temp Pulse Resp BP Pulse Ox O2 Del Method 02/18/23 07:57 36.7 C 72 16 135/67 95 Room Air 02/18/23 07:22 Room Air Laboratory Results [facility] 02/18/23 06:06 Sodium 128 L Potassium 4.2 Chloride 100 Carbon Dioxide 16 L BUN 51 H Creatinine 3.31 H Glucose 99 Calcium 8.9 Medications Administered Current Inpatient Medications Acetaminophen (Acetaminophen 325 Mg Tab) 650 mg PO Q4H PRN PRN Reason: Moderate Pain (Scale 4, 5, 6) Stop: 03/16/23 16:59 Amlodipine Besylate (Amlodipine Besylate 5 Mg Tab) 2.5 mg PO DAILY [facility] Stop: 03/17/23 08:59 Last Admin: 02/18/23 08:38 Dose: 2.5 mg Atorvastatin Calcium (Atorvastatin 10 Mg Tab) 10 mg PO Q2D@0900 [facility] Stop: 03/17/23 08:59 Last Admin: 02/17/23 08:00 Dose: 10 mg Carvedilol (Carvedilol 12.5 Mg Tab) 12.5 mg PO BID [facility] Stop: 03/16/23 20:59 Last Admin: 02/18/23 08:38 Dose: 12.5 mg Doxycycline Hyclate 100 mg/ (Dextrose) 110 mls @ 50 mls/hr IV Q12H [facility] Stop: 02/22/23 03:59 Last Infusion: 02/18/23 06:10 Dose: Infused Aztreonam 2,000 mg/ Dextrose 110 mls @ 100 mls/hr IV Q12H [facility]; Protocol Stop: 02/23/23 07:59 Last Infusion: 02/18/23 10:19 Dose: Infused Levothyroxine Sodium (Levothyroxine Sodium 50 Mcg Tablet) 50 mcg PO DAILYBB [facility] Stop: 03/17/23 06:29 Last Admin: 02/18/23 05:40 Dose: 50 mcg Metronidazole (Metronidazole 500 Mg Tab) 500 mg PO TID [facility]; Protocol Stop: 02/23/23 08:59 Last Admin: 02/18/23 08:38 Dose: 500 mg Multivitamins (Multivitamin Tab) 1 tab PO DAILY [facility] Stop: 03/17/23 08:59 Last Admin: 02/18/23 08:38 Dose: 1 tab Ondansetron HCl (Ondansetron Inj 2 Mg/Ml 2 Ml Vial) 4 mg IV Q4H PRN PRN Reason: Nausea And Vomiting Stop: 03/16/23 16:59 Sodium Chloride (Sodium Chloride 1 Gm Tablet) 1 gm PO BID [facility] Stop: 03/19/23 10:59 Last Admin: 02/18/23 08:38 Dose: 1 gm
--- NOTE | 2023-02-18 14:34 | Electrocardiogram Report ---
Test Reason : Blood Pressure : / mmHG Vent. Rate : 067 BPM Atrial Rate : 067 BPM P-R Int : 198 ms QRS Dur : 090 ms QT Int : 404 ms P-R-T Axes : 026 -30 006 degrees QTc Int : 426 ms Normal sinus rhythm Left axis deviation Minimal voltage criteria for LVH, may be normal variant Nonspecific T wave abnormality Abnormal ECG When compared with ECG of 13-FEB-2023 14:12, No significant change was found Confirmed by Heath Bueno ([id number]) on 02/18/2023 2:34:16 PM Referred By: REFERRED SELF Confirmed By:Heath Bueno
[2023-02-19] MEDS: DOXYCYCLINE HYCLATE 100 MG in DEXTROSE 5% 100 ML IV SCH (03:56)
[2023-02-19] MEDS: LEVOTHYROXINE SODIUM 50 MCG TABLET PO SCH (05:27)
[2023-02-19 06:20] LABS: Basophils # (auto) 0.04 K/uL (0.00-0.20); Basophils % (auto) 0.5 %; Eosinophils # (auto) 0.27 K/uL (0.00-0.50); Eosinophils % (auto) 3.2 %; Hematocrit (blood only) 25.6 % (37.0-47.0); Hemoglobin 8.7 g/dl (12.0-16.0); Immature Granulocytes # (auto) 0.06 K/uL (0.01-0.20); Immature Granulocytes % (auto) 0.7 %; Lymphocytes # (auto) 1.48 K/uL (1.20-3.40); Lymphocytes % (auto) 17.5 %; Mean Corpuscular Hemoglobin 26.8 pg (25.0-34.0); Mean Corpuscular Volume 78.8 fL (80.0-100.0); Mean Platelet Volume 8.1 fL (9.4-12.4); Monocytes # (auto) 1.19 K/uL (0.11-0.59); Neutrophils # (auto) 5.44 K/uL (1.40-6.50); Neutrophils % (auto) 64.1 %; Platelet Count 320 K/uL (130-400); RDW Coefficient of Variation 14.8 % (11.5-14.5); RDW Standard Deviation 42.5 fL (36.4-46.3); Red Blood Count 3.25 M/uL (4.20-5.40); White Blood Count 8.48 K/ul (4.8-10.8)
[2023-02-19 06:32] LABS: BUN Creatinine Ratio 15.5 (10-20); Calcium 8.6 mg/dl (8.6-10.3); Creatinine Clr Calc Pharmacy 13.1 ml/min; Est GFR (African American) 16.6 ml/min; Est GFR (Non-African American) 14.3 ml/min; Potassium 3.5 mmol/L (3.5-5.1)
[2023-02-19] MEDS: metroNIDAZOLE 500 MG TAB PO SCH ×2 (08:23→15:01)
[2023-02-19] MEDS: ATORVASTATIN 10 MG TAB PO SCH (08:23)
[2023-02-19] MEDS: carvediloL 12.5 MG TAB PO SCH (08:23)
[2023-02-19] MEDS: amLODIPine BESYLATE 5 MG TAB PO SCH (08:23)
[2023-02-19] MEDS: SODIUM CHLORIDE 1 GM TABLET PO SCH (08:23)
[2023-02-19] MEDS: MULTIVITAMIN TAB PO SCH (08:23)
[2023-02-19] MEDS: AZTREONAM 2,000 MG in DEXTROSE 5% 100 ML IV SCH (09:05)
--- NOTE | 2023-02-19 11:26 | Infectious Disease Consult ---
Date of Consultation February 19, 2023 Assessment & Plan (1) Abnormal CT scan of lung: (2) STONER (dyspnea on exertion): Plan Time course and clinical findings to date do not support a routine infectious process. AFB may still be possible, but will need to follow cultures. BAL cytology does not support routine bacterial infection either. I would stop all antibiotics. Assuming her BAL continues to remain negative and pathology does not reveal a likely cause, she may need VATS and open biopsy. At a minimum, her CT should be repeated in the next 4 weeks. Consultation Information Consultation was provided via telemedicine using two-way real-time interactive telecommunication between the patient and the telemedicine provider. For the duration of the visit, the provider was performing the assessment from a different facility than the patient. This includesuse of bluetooth stethoscope forauscultationperformed by the telepresenter that the telemedicine provider can hear if described in the physical exam. Insurance Claims Representative contact information: Please call [facility] . (Phone Number For Physician Use Only) After establishing a telemedicine visit, patient was: Patient was verified with two unique identifiers, Patient/authorized rep acknowledged consent and understanding and Gave permission to continue telehealth session Time Spent with Patient: Initial => 55 min History of Present Illness Reason for Consultation: Multifocal pneumonia Requesting Physician: Maurice Rajput MD Attending Physician: Maurice Rajput MD History of Present Illness Ms. Chandler is a 77yo with a h/o CKD, Stage IV. She has had progressive SOB for the past month. Prior to admission she was treated empirically for CAP with levaquin with maybe some slight improvement. Prior to admission she was noted to have O2 sats of 84% on RA and was sent to the ED at [facility] on . She was started empirically on aztreonam, doxycycline and metronidazole. Her CT showed bilateral, multifocal infiltrates and on 02/15/23 she underwent bronch and BAL. This has been unremarkable to date. No fevers during this entire time. She had some mild, intermittent cough that was non-productive. She had no sick contacts, no travel or any animal exposures. Right now she feels well and is back to baseline. She does not feel short of breath at all and is on room air. Her son is at the bedside and helps provide some input into the history. Allergies Allergy/AdvReac Type Severity Reaction Status Date / Time Penicillins Allergy Intermediate HIVES Verified 05/01/17 13:22 Corticosteroids Allergy Mild ` Verified 05/01/17 13:22 (Glucocorticoids) naproxen Allergy Unknown UNKNOWN Verified 05/01/17 13:22 Home Medications Medication Instructions Recorded Confirmed Type Krill Oil (Maximum Red Krill 300 300 mg PO DAILY ##0 05/01/17 02/14/23 History mg) atorvastatin 10 mg tablet 10 mg PO DIRECTED 06/16/22 02/14/23 History carvedilol 12.5 mg tablet 12.5 mg PO BID 06/16/22 02/14/23 History furosemide 20 mg tablet 20 mg PO Q OTHER DAY PRN Leg 06/16/22 02/14/23 History swelling [id number]-[id number] tablet 1 tab PO DAILY 06/16/22 02/14/23 History amlodipine 5 mg tablet (Norvasc) 2.5 mg PO DAILY 02/14/23 02/14/23 History coQ10 (ubiquinol) 200 mg PO DAILY 02/14/23 02/14/23 History iron 1 tab PO DAILY 02/14/23 02/14/23 History levothyroxine 50 mcg capsule 50 mcg PO DAILY 02/14/23 02/14/23 History Patient History Medical History JAYLEN (acute kidney injury) HTN (hypertension) Hyponatremia Surgical History History of arthroplasty of left knee History of arthroplasty of right knee History of tonsillectomy Hx of hysterectomy Family History Father Diabetes Sister Cancer Social History Smoking Status: Never smoker Second Hand Exposure: No; Do You Dip or Chew Tobacco: No; Tobacco Cessation Education Requested by Patient: No Hx Alcohol Use: No Hx Substance Use: No Preferred Language: Haitian Communication Ability: Effective Iron Bender Required: No Beliefs That Will Affect Care: None Current Living Situation: Alone Other Information That Helps Us Care for You: No Feels Safe at Home: Yes Safety Concerns: Feels Safe At This Time Assistive Devices: Cane Review of System No fevers or malaise No visual changes No sore throat or dry mouth SOB as per HPI Additional Comments: No chest pain, but had some "tightness" prior to admission No N/V or diarrhea No dysuria or frequency No joint pains No rash No focal deficits Physical Exam Constitutional: NAD, cooperative with exam Eyes: Sclera WNL ENMT: OP clear Neck: Neck ROM intact Respiratory: Normal respiratory rate on room air Musculoskeletal: No joint swelling or erythema Skin: No rash Neurologic: Alert and oriented Lymphatic: No edema Results & Data Vital Signs (Past 12 Hours) Vital Signs Temp Pulse Resp BP Pulse Ox O2 Del Method 02/19/23 08:03 36.5 C 79 16 154/82 H 93 Room Air 02/19/23 07:32 Room Air Laboratory Results WBC 8.71 -> 8.48 (64.1% polys) Hgb 8.7 Platelets 320 Na 129 Creatinine 3.03 BUN 47 UA WNL RVP negative Legionella Ag negative BAL cultures negative to date (bacterial, Legionella, fungal, and AFB) BAL path pending, but cytology shows 57% macros/monos, 22% lymphs, 17% polys Diagnostic Findings CTA chest from admission reviewed by me: bilateral infiltrates
--- NOTE | 2023-02-19 12:34 | Discharge Summary ---
Discharge Summary Date of Service February 19, 2023 Notes For Next Care Provider Patient admitted with abnormal chest CTA findings of multifocal pneumonia. Prior to hospitalization was treated with course of oral Levaquin. Despite antibiotic continued to remain short of breath and presented to ED. Given the extent of findings patient was seen and evaluated by pulmonology and underwent bronchoscopy with lavage. Thus far cultures are negative for bacterial component although acid-fast and fungal cultures still pending. Legionella culture also pending as well. Final cultures will need to be followed up on. She was seen and evaluated by infectious disease without antibiotics no longer indicated this does not appear source is infectious. Despite treatment her symptoms did improve. Infectious disease recommends outpatient pulmonology evaluation for VATS procedure and possible open biopsy for further diagnostic purposes. At the least, they recommend obtaining follow up CT scan in 4 weeks if patient does not wish to pursue first option. Also, incidentally patient's lab work noted hyponatremia as well as elevated TSH. She did receive gentle IVF and few days of salt tabs. Na is 129 at discharge. She did have contrast induced nephropathy. Baseline cr was 1.8. Cr peaked at 3.38. Cr has downtrended to 3.03. Will need close follow up and possible nephrology appointment if worsening. Recommend repeat BMP at hospital follow-up. Recommend repeat TSH 2 to 4 weeks posthospitalization. Medication Changes From Visit No medication changes. Admission HPI Per Admitting Provider This is a 77 yo F with PMHx of HTN, HLD, CKD stage IV, who presents to the hospital with continued shortness of breath since the beginning of January when she was treated for bilateral pneumonia, pt underwent CT lung study which showed bilateral extensive pneumonia, in which she was placed on Levaquin and completed this about 2 weeks ago. She has another CT lung arranged but not until 02/20. Pt was walked in the office and pulse ox dropped to 84%. She needed to stop and rest per outpt Epic review. Pt was referred to the ER for treatment and imaging studies per PCP. Patient reports that she feels very well, so well in fact that she does not want to be in the hospital, and initially did not think she needed to stay overnight for procedure. Pulmonology has been consulted and recommended the patient undergo a bronchoscopy on 02/15. Denies any fevers, sweats or chills. She lives at home by herself with a dog, no pet birds or other farm animals, her son visits her on a daily basis who has been well. She denies any exposure to mold. Denies history of smoking or secondhand exposure. Denies any history of known cancers or other underlying lung disorder such as COPD, asthma, substance exposure. Admission Exam Per Admitting Provider General: awake, alert, no apparent distress Head: Normocephalic, atraumatic ENT: PERRL, EOMI, no pharyngeal exudate, mucous membranes moist Chest: Diminished breath sounds at apices, +Fine crackles at bases bilatelly up to mid mathew worse on left compared to right, on room air, sats low-mid 90s at rest Cardiac: Regular rate and rhythm, no murmur, no JVD, normal peripheral pulses, good capillary refill Abdominal: NABS x 4 quadrants, soft, nondistended, nontender to palpation, no rebound or guarding Extremities: Normal inspection, no peripheral edema or erythema, calfs nontender to palpation Psych: Normal mood and affect Neuro: AAO x 3, strength intact bilaterally and rated 5/5, no motor deficits, speech is clear, no peripheral sensory deficits Principal Dx & Hospital Course #1 = Principal Diagnosis (1) Multifocal pneumonia: (2) Hypoxia: (3) STONER (dyspnea on exertion): (4) HTN (hypertension): (5) HLD (hyperlipidemia): (6) Hypothyroidism: 77 yo F with PMHx of HTN, HLD, CKD stage IV, who presents to the hospital with continued shortness of breath since the beginning of January when she was treated for bilateral pneumonia, pt underwent CT lung study which showed bilateral extensive pneumonia, in which she was placed on Levaquin and completed this about 2 weeks ago. She has another CT lung arranged but not until 02/20. Pt was walked in the office and pulse ox dropped to 84%. Multifocal pneumonia-unresolved with persisting symptoms Dyspnea on exertion Has been started 1 aztreonam and Flagyl and later on doxycycline was added to cover atypicals Status post bronchoscopy-Gram stain is negative so far, Acid fast pending and pathology pending Blood cultures have been negative Legionella titers pending She has been feeling much better following bronchoscopy and wants to go home Chest x-ray reviewed-multilobar pneumonia seems to be worse ID recommends d/c antibiotics as less likely infectious source as cultures have remained negative. Recommends VATS with open bx as OP, and at the least a repeat CT Chest in 4 weeks. Pt and family member at bedside educated regarding current condition, assessment, treatment plan, current findings and what to expect going forward. She will work closely with PCP. Imaging studies -CT from 02/14 reviewed showing: Multifocal airspace consolidation as above. The appearance is typical for multifocal pneumonia. Clinical correlation will be required and radiographic follow-up to resolution is recommended. Cardiomegaly and trace pleural effusions. -Previous CT chest done on 01/18/23 showed Extensive bilateral pneumonia. Cannot exclude underlying lung mass. Follow-up after resolution of current illness recommended. Hyponatremia with JAYLEN Hyponatremia seems to be chronic and has been around upper 120s Likely secondary to possible SIADH JAYLEN is likely secondary to use of contrast We will give cautious amount of intravenous fluid and monitor PRP and electrolytes May need nephrology evaluation if kidney function does not improve subsequently Sodium level has slightly gone up to 127 IV fluid is stopped due to possible chest x-ray findings of congestion We will give sodium tablet for a day or 2 and monitor PRP will encourage liberal salt intake at discharge Sodium level has improved a little bit at 129 Acute on Chronic CKD -4 baseline cr 1.8 Creatinine at baseline on admission Patient received IV contrast with noted worsening of creatinine Likely contrast-induced nephropathy on top of CKD Creatinine downtrending Recommend repeat BMP at PCP follow-up. She does have a follow-up with Dr. Rinaldi on 04/02/2023 Recommend follow-up sooner if worsening HTN - Continue antihypertensive medications - Chronic, stable HLD - Chronic, stable Hypothyroidism - TSH elevated at 37.33, and free T4 normal - recheck TSH and T4 within 2 weeks - Consider increase on levothyroxine pending multifocal pna is resolved DVT PPx: SCDs, teds CODE STATUS: Full code Dispo: D/C to home with close PCP f/u Pt was seen and examined in collaboration with Dr. Rajput, please see addendum Discharge Exam Gen: WD/WN, NAD, A&O x3 HEENT: Normocephalic, atraumatic, conjunctivae moist, sclerae anicteric, mucous membranes moist. Lung: Clear to Auscultation bilaterally, bibasilar crackles no wheezes/rhonchi Heart: Regular rate, regular rhythm, 2/6 ALEXIS RUSB, rubs, or gallops Abdomen: Soft, NT, ND +BS x 4 Extremities: No edema Skin: Warm, no rash, negative turgor. Updated Medication List Medication Instructions Recorded Confirmed Type Krill Oil (Maximum Red Krill 300 300 mg PO DAILY ##0 05/01/17 02/14/23 History mg) atorvastatin 10 mg tablet 10 mg PO DIRECTED 06/16/22 02/14/23 History carvedilol 12.5 mg tablet 12.5 mg PO BID 06/16/22 02/14/23 History furosemide 20 mg tablet 20 mg PO Q OTHER DAY PRN Leg 06/16/22 02/14/23 History swelling alszpblqprtn-licuadar-ugjecv tablet 1 tab PO DAILY 06/16/22 02/14/23 History amlodipine 5 mg tablet (Norvasc) 2.5 mg PO DAILY 02/14/23 02/14/23 History coQ10 (ubiquinol) 200 mg PO DAILY 02/14/23 02/14/23 History iron 1 tab PO DAILY 02/14/23 02/14/23 History levothyroxine 50 mcg capsule 50 mcg PO DAILY 02/14/23 02/14/23 History Hospital Stay Data Consultations 02/14/23 12:41 Consult Pulmonology Routine 02/14/23 13:56 ED Decision to Admit Stat 02/14/23 17:00 Consult Pulmonology Routine 02/15/23 08:31 Consult Infectious Diseases Routine Procedures Performed Operation Date: 02/15/23 07:00 Actual Procedures p Bronchoscopy Radiology - Manuel Raygoza MD, [facility] Diagnostic Imagining Performed Chest CTA 02/14/23 10:01 CT ANGIOGRAM OF THE CHEST CLINICAL HISTORY: Dyspnea on exertion. COMPARISON STUDY: Chest x-ray dated 02/13/2023. TECHNIQUE: Following the IV administration of 119 cc of Optiray 350, CT angiogram of the chest was performed from the upper abdomen to the thoracic inlet utilizing the pulmonary embolus protocol. Images are reviewed in the axial, sagittal, and coronal planes. 3-D MIPS images are created and assessed. IV contrast was administered without complication. A dose lowering technique was utilized adhering to the principles of ALARA. CT DOSE: 338.91 mGy.cm FINDINGS: Thyroid: Imaged portions of the thyroid gland are normal in size and attenuation. Thoracic aorta: There is moderate atherosclerotic calcification of the thoracic aorta, which is normal in caliber and demonstrates standard 3-vessel arch anatomy. No dissection is seen. Pulmonary vasculature: The main pulmonary arteries are dilated suggesting pulmonary artery hypertension.. There are no filling defects identified in main, lobar, or segmental pulmonary branches to suggest pulmonary embolus. Heart: The heart is enlarged noting trace without pericardial effusion. The pulmonary arteries are densely calcified. Lungs and pleural spaces: There is multifocal airspace consolidation seen throughout both lungs. This is greatest in the upper lobes and at the left lung base. Foci of parenchymal scarring and architectural distortion are noted bilaterally. There are trace pleural effusions. The trachea and central airways are clear. Mediastinum: There are minimally enlarged mediastinal lymph nodes. A precarinal node measures 10 mm short axis. Elin: Mildly enlarged hilar nodes measure up to 12 mm short axis. These are likely reactive. Axillae: There is no axillary lymphadenopathy. Upper abdomen: Cyst arising from the upper pole of the left kidney measure up to 4.9 cm. Partially visualized upper abdominal viscera is within normal limits. Skeletal structures: The skeletal structures are osteopenic. Degenerative change and mild kyphoscoliosis is noted in the thoracic spine. No lytic or blastic bony lesions are seen. Arthritic change is seen in the shoulders. IMPRESSION: 1. There is no evidence of pulmonary embolus in the main, lobar, or segmental pulmonary arteries. 2. Multifocal airspace consolidation as above. The appearance is typical for multifocal pneumonia. Clinical correlation will be required and radiographic follow-up to resolution is recommended. 3. Cardiomegaly and trace pleural effusions. 4. Additional findings as above. ACT 112: Negative or not required by law. Electronically signed by: Gerald Loera M.D. 02/14/2023 11:01 AM Chest X-Ray 02/15/23 08:43 XR chest 1V portable CLINICAL HISTORY: s/p bronch COMPARISON STUDY: Chest radiograph February 13, 2023. Chest CT February 14, 2023. FINDINGS: There is no pneumothorax status post bronchoscopy. Cardiomegaly is unchanged. There is no pleural effusion. Multifocal airspace opacities within the lungs are again noted. Elevation of left hemidiaphragm is unchanged. IMPRESSION: 1. No pneumothorax status post bronchoscopy. 2. No significant change in multifocal airspace opacities within lungs. ACT 112: Negative or not required by law. Electronically signed by: Stevan Joe M.D. 02/15/2023 9:42 AM Chest X-Ray 02/17/23 08:00 TWO VIEW CHEST CLINICAL HISTORY: Pneumonia. FINDINGS: PA and lateral chest radiographs are compared to study dated 02/15/2023 and correlated with chest CT dated 02/14/2023. The heart is enlarged noting atherosclerotic calcification of the thoracic aorta. The pulmonary vasculature is noncongested. Multifocal airspace consolidation is again seen throughout both lungs, greatest in the upper lobes and at the left lung base. No pleural effusion is identified. There is no pneumothorax. The skeletal structures are osteopenic. The bony thorax appears intact. Degenerative change and scoliosis is noted in the spine. IMPRESSION: 1. Cardiomegaly without radiographic evidence of congestive failure. 2. Multifocal airspace consolidation is typical for pneumonia and similar to 02/15/2023. ACT 112: Negative or not required by law. Electronically signed by: Gerald Loera M.D. 02/17/2023 10:29 AM Pending Results Patient Have Any Pending Studies at Discharge: Yes Discharge Instructions Given to Patient (Per Discharging Provider) MEDICATION CHANGES: No new medication changes. Per infectious disease - they do not recommend continuing further antibiotics at this time. SUMMARY OF TEST RESULTS: You were admitted to hospital secondary to persistent shortness of breath and multifocal pneumonia. You underwent CT scan of chest as outpatient which revealed extensive bilateral pneumonia. You completed an outpatient course of antibiotic, Levaquin. Symptoms continued to persist. CT scan of chest on 02/14 revealed multifocal airspace consolidation typical for multifocal pneumonia. You were started on IV antibiotics. You were seen and evaluated by pulmonology and underwent a bronchoscopy on February 15. Thus far culture results from bronchoscopy are negative for infection, although still pending. You were seen and evaluated by infectious disease on day of discharge who felt antibiotics could be discontinued at this time. Incidentally you were found to have an elevated TSH (Thyroid Level) on admission. It is recommend you have this repeated 2-4 weeks at discharge. PENDING TEST RESULTS: Final culture results from bronchoscopy pending, thus far negative. RECOMMENDATIONS FOR FOLLOW-UP: It is recommended you have a Repeat CT Chest in 4 weeks. You may also need a VATS procedure with biopsy to further help diagnose findings on abnormal CT if symptoms worsen/return. Your primary care provider will need to assist in coordinating. It is recommended you follow up with a Lung Doctor given your abnormal chest CT. Your Primary care can arrange this. Please follow up with Primary care provider upon discharge. Recommend you have a repeat BMP at discharge to monitor kidney function and sodium levels. Recommend repeat Thyroid function 2-4 weeks from discharge due to elevated thyroid function while hospitalized. Recommend adding salt to your diet. OTHER INSTRUCTIONS: Seek medical attention if you have: * temperature above 101 * chest pain or trouble breathing * abdominal pain, nausea, vomiting * diarrhea, dark stools or bloody stools * any unanswered questions or concerns Call 911 if symptoms are severe. Please take good care of yourself. It has been a pleasure taking care of you. Please take care of yourself. If you have any questions regarding your recent hospitalization please contact [facility] and request [facility] @ [phone]. Kori Gotti PA-C Total Time Total Time Spent Total Time Spent (In Minutes): 45 minutes Supervising Physician Co-Signing Physician Notes Attending addendum The patient was seen and examined in medical floor She has been feeling much better Has minimal cough but no shortness of breath at rest Has been saturating normally on room air and has been ambulating in the room without any difficulties On examination Sitting on a chair without any acute distress Remains hemodynamically stable Chest-occasional crackles bibasally Heart-S1-S2, regular Abdomen-benign Extremities-negative for any edema Her labs, imaging studies and medications reviewed Has multilobar ,bilateral pneumonia status post bronchoscopy Pathology of bronchial biopsy is pending ID evaluation is done today Agree with assessment and plan as outlined above by Sharlene Rajput
--- OUTSIDE RECORDS SUMMARY | 2023-02-25 11:12 | External Medical Summary | Summary of Care ---
Author Name Unknown Organization [facility] Address [address] [place] [address] Phone [phone] Care Team Providers Care Instrumentation Engineering Technician Name Role Phone Tiffanie Dewey DO Primary Care Provider [phone] Reason for Visit * Reason Comments case management CKD CM goal review Encounter Details Date Type Department Care Team Description 02/12/2023 Traffic Line Painter Care Coordination [address] [facility] [place] [address] Jessica Bethea RN Chronic kidney disease, stage 4 (severe) ([facility])* Allergies Active Allergy Reactions Severity Noted Date Comments Amlodipine Edema Other 08/22/2017 Clindamycin Hcl Nausea/vomiting 01/31/2015 Corticosteroids Low 10/21/2012 Iodinated Contrast Media 07/19/2022 Naproxen Low 10/21/2012 Unknown per patient Penicillins Rash High 10/06/2012 documented as of this encounter (statuses as of 02/12/2023) Medications Medication Sig Dispensed Refills Start Date End Date Status CENTRUM SILVER PO TABS one tablet by mouth daily 0 Active IRON 325 (65 FE) MG PO TABS Take by mouth 2 times a day. 0 Active MAXIMUM RED KRILL 300 MG PO CAPS one tablet by mouth daily 0 Active Coenzyme Q10 100 MG Capsule Take 1 Capsule by mouth in the morning. 1 Cap 0 10/04/2017 Active Atorvastatin Calcium 10 MG Oral Tablet (Lipitor)Indications :Hyperlipidemia with target low density lipoprotein (LDL) cholesterol less than 100 mg/dL TAKE ONE TABLET BY MOUTH EVERY DAY 100 Tablet 0 05/15/2022 Active Levothyroxine Sodium 50 MCG Oral Tablet (Levoxyl)Indications :Other specified hypothyroidism Take 1 Tablet by mouth in the morning. (at least 30 min prior to breakfast or other meds). 30 Tablet 06/29/2022 Active amLODIPine Besylate 2.5 MG Oral Tablet (Norvasc)Indications :HTN, goal below 140/90 Take 1 Tablet by mouth in the morning. 30 Tablet 06/29/2022 Active Furosemide 40 MG Oral Tablet (Lasix)Indications:C hronic kidney disease, stage 3a (HCC) Take 1 Tablet by mouth once a day on Saturday, Saturday, and Saturday only. 30 Tablet 12/21/2022 Active Additional Information Patient not taking.Reported on 02/12/2023 Carvedilol 12.5 MG Oral Tablet (Coreg)Indications:H TN, goal below 130/80 TAKE ONE TABLET BY MOUTH TWICE A DAY 180 Tablet 4 05/08/2022 Active documented as of this encounter (statuses as of 02/12/2023) Active Problems Problem Noted Date Benign hypertension with chronic kidney disease, stage IV 09/24/2022 Overview: Per CKD protocol Chronic kidney disease, stage 4 (severe) 09/24/2022 Overview: Per CKD protocol Seasonal allergic rhinitis due to pollen 11/23/2021 HTN, goal below 140/90 10/03/2012 Osteoarthritis 10/03/2012 Other specified hypothyroidism Hyperlipidemia with target LDL less than 100 Overview: ICD-10 update of inactive term documented as of this encounter (statuses as of 02/12/2023) Resolved Problems Problem Noted Date Resolved Date Benign hypertension with stage 3a chronic kidney disease 04/19/2021 09/27/2022 Overview: Combo code Chronic kidney disease, stage 3a 01/23/2021 09/27/2022 Overview: Per CKD protocol Allergic rhinitis 03/16/2017 04/09/2018 URI (upper respiratory infection) 04/28/2016 12/11/2016 Allergic rhinitis 10/21/2015 03/16/2017 Dyslipidemia, goal to be determined 10/03/2012 06/12/2013 Sedentary lifestyle 10/03/2012 04/09/2018 NONE 06/12/2013 Endometriosis 04/09/2018 Hypertension 06/12/2013 documented as of this encounter (statuses as of 02/12/2023) Immunizations Name Administration Dates Next Due COVID-19 mRNA, LNP-s, No Pre serve, 2-Dose Series (Pfizer) 04/28/2021,09/13/2020,08/17/2020 COVID-19, LNP-s, No Preserve , Von-sucrose, Ages 12+ (Pfizer) 11/03/2021 Covid-19, Mrna, Lnp-s, Pf, B ivalent, 30 Mcg, IM, 12 yrs and above (Pfizer) 04/12/2022 Pneumococcal Conjugate Vacc, 13 Valent (Prevnar) 05/25/2019 Pneumococcal Polysaccharide PPV23 (Pneumovax) 05/15/2018 Season Influenza, Quad, PF, Adjuvanted, 65+ Yrs, IM (FLUAD) 04/22/2020,02/01/2020 Seasonal Influenza, PF, 6 mo ns & Above, IM , (Flulaval) 03/26/2019,04/09/2018,04/05/2017 Seasonal Influenza, Quadriva lent Hd (Fluzone Hd) 04/17/2022,03/21/2021 TD - Tetanus/Diptheria (ADULT) 04/22/1996 documented as of this encounter Social History Tobacco Use Types Packs/Day Years Used Date Smoking Tobacco: Never Passive Smoke Exposure: Never Smokeless Tobacco: Never Alcohol Use Standard Drinks/Week Comments No 0 (1 standard drink = 0.6 oz pur e alcohol) Food Insecurity Answer Date Recorded Within the past 12 months, y ou worried that your food would run out before you got money to buy more. Never true 06/29/2022 Within the past 12 months, t he food you bought just didn't last and you didn't have money to get more. Never true 06/29/2022 Sex Assigned at Date Recorded Female 10/16/2021 1:03 PM E [employer] Job Start Date Occupation Industry Not on file Not on file Not on file documented as of this encounter Progress Notes * Jessica Bethea RN - 02/12/2023 2:29 PM EDT Traffic Line Painter Progress Note: Date: 02/12/23 Assigned Patient Tier: 3 Connected with patient via phone. Verified patient name/. Advised patient that call is being recorded for quality and training purposes. Assessment: Pt. noted the following: CKD CM goal review Spoke with pt, she reports that she has been having increased SOB, she was to her PCP yesterday andher SpO2 at rest was 93% but with ambulation dropped into the 80's. PCP wanted testing done. Pt went to ED, had labs/CT done PE was ruled out. She said that she did not stay, she was there for several hours then decided to leave. She was given a script for cefdinir, she took it but woke up this morning with a reaction and is not going to take anymore. Pt would like a call back from her PCP. Bottles out med rec completed. She reports she is taking levothyroxine 75mcg daily, atorvastatin about 3x/wk and is no longer taking lasix. She verbalized that she is taking ferrous sulfate one tab daily but was recently advised to take it twice daily. (Per 02/06 note by Shabana Ibarra pt told to change to every other day) She denies any edema. Reviewed low salt diet, 50oz fluid restriction, pt reports adherence. Wt 127#, BP pt is unsure, she has not been consistently checking it at home, encouraged her to check it at least a few times per week and right down results. Pt unable to verbalize red flags. Only decreased urination. Reviewed others. Increased SOB, edema, N/V, loss of appetite, wt gain. Pt has f/u with PCP end of wk. Plan; f/u in 4-5 wks for goal review. . Did you receive an alert for an annual wellness visit? No Is this call for a hospital, half-way or rehab facility discharge to home? No Medication Reconciliation: Medication Reconciliation completed: yes Review of Current goals: Discussed the following patient-centered CM goals with the patient during this discussion: -CKD: Patient will maintain kidney function as long as possible -Status: On Track GFR is 29. -ESRD: Promote minimal renal risk for patient -Status: At Risk pt unable to recall red flags. -RESPIRATORY: Patient/caregiver will monitor for exacerbation of respiratory condition and treat accordingly -Status: Not Started testing being done, PE ruled out. . COPD Patient: No CHF Patient: NO CM Plan: Reviewed 3 Red Flags with patient. Advised to call CM with any of the following: Red Flag 1: Increased SOB, Red Flag 2: Edema/wt gain, or Red Flag 3: N/V Remote Patient Monitoring: At this time, RPM not offered/considered for patient due to pt has own equipment. Plan for Future Contacts: Plan to follow up within 1 month to check progress on the following goals/needs red flags. Planned contacts from the following parties will occur this week: PCP office visit as additional contacts per workflow. Advancement/Closure Plan: Keep patient at current Tier with reassessment per workflow. Patient provided CM contact information and encouraged to call with any changes in condition. SNP Member? No PCP Notified of enrollment in CM/HM program: Yes Is Provider in agreement with POC? Yes Jessica Bethea RN Outpatient Case Management documented in this encounter Plan of Treatment Upcoming Encounters Date Type Specialty Care Team Description 02/15/2023 Office Visit Family Medicine Tiffanie Dewey DO [address] [place] [address] 02/20/2023 Imaging Radiology 04/30/2023 Laboratory Laboratory [facility] [address] [place] [address] 07/30/2023 [facility] Visit [facility] [address] [facility] [address] 08/06/2023 Laboratory Laboratory [facility] [address] [place] [address] 08/08/2023 [facility] [address] [facility] [address] 08/13/2023 Office Visit Hematology Oncology Shabana Ibarra CRNP [address] [place] [address] Health Maintenance Due Date Last Done Comments PTH 02/28/1963 DTaP,Tdap,and Td Vaccines (1 - Tdap) 04/23/1996 04/22/1996, 04/22/1996 DXA Scan 01/31/2008 01/30/2001 Zoster Vaccines (2 of 2) 10/21/2018 08/26/2018 Depression Screening, Annual for Pts 12 and Over 10/16/2022 10/16/2021 Influenza Vaccine (FLU shot) (#1) 2023 04/17/2022, 03/21/2021, 04/22/2020, Additional history exists Albumin/Creatinine Ratio 07/23/2023 07/23/2022, 05/18 GFR 08/11/2023 02/08/2023, 01/16, 12/17/2022, Additional history exists Phosphate 09/12/2023 09/11/2022, 05/18, 04/26/2021 TSH 10/13/2023 10/12/2022, 08/15, 08/06/2022, Additional history exists Nephrology Referral 12/21/2023 12/20/2022 Hgb 02/05/2024 02/04/2023, 07/0 08/2022, 10/12/2022, Additional history exists Pneumococcal Vaccine: 65+ Years Completed 05/25/2019, 05/15/2018 COVID-19 Vaccine Completed 04/12/2022, , 04/28/2021, Additional history exists GARDASIL-HPV IMMUNIZATION SERIES Aged Out No longer eligible based on patient's age to complete this topic Hepatitis B Aged Out No longer eligi ble based on patient's age to complete this topic MENINGOCOCCAL (MENACTRA/MENVEO) Aged Out No longer eligible based on patient's age to complete this topic documented as of this encounter Medical Devices Not on filedocumented as of this encounter Visit Diagnoses Diagnosis Chronic kidney disease, stage 4 (severe) (HCC)- Primary documented in this encounter Care Teams Instrumentation Engineering Technician Relationship Specialty Start Date End Date Tiffanie Dewey DO [address] [place] [address] PCP - General Family Medicine 09/08/18 documented as of this encounter
[2023-02-27 13:52] LABS: Legionella Culture Source *B BRUSH; Source BAL LLL; Source LEFT LOWER LOBE
== END 2023-02-19 16:04 | disposition home or self-care (01) | DRG 194 ==
LOC: ED 08:57 → 3W 14:59 → SUATTDRO 14:59 → 3W 16:43